=== PATIENT | female | born 1965 | race Caucasian/White ===

== ENCOUNTER 2016-11-29 16:01 | Emergency (ER) | payer OTHER ==
[2016-11-29 16:17] VITALS: BP 129/84
[2016-11-29] MEDS ORDERED: Sodium Chloride 0.9% 10 ML Syringe FLUSH PRN (16:55)
[2016-11-29] MEDS ORDERED: Ondansetron 4 MG/2 ML SDV IVPUSH ONE (16:55)
[2016-11-29] MEDS ORDERED: HYDROmorphone 0.5 MG/0.5 ML Syringe IVPUSH ONE ×2 (16:55→18:06)
[2016-11-29] MEDS ORDERED: Sodium Chloride 0.9% 1,000 ML IV ONE (16:55)
--- NOTE | 2016-11-29 17:00 | EDM.PDOC ---
ED HPI GENERAL MEDICAL PROBLEM - General Chief Complaint: Genitourinary Problem Stated Complaint: BACK PAIN Time Seen by Provider: 11/29/16 16:45 Source of Information: Reports: Patient History Limitations: Reports: No Limitations - History of Present Illness INITIAL COMMENTS - FREE TEXT/NARRATIVE: Patient is a 51-year-old female who to the presents ED complaining of a achy sensation to the left flank that started earlier this morning. Patient was at work when this started. 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 There is no heavy lifting. Pain has progressively gotten worse. Pain has been moving. Pain is constant with waxing waning in intensity. She has not urinated today although shes been drinking plenty of water. She is mildly nauseated with no vomiting. There's been no documented fever although at times she feels clammy. She denies any diarrhea, constipation, SOB, chest pain, dizziness, abnormal vaginal discharge, dysuria, or any additional complaints. She has no prior history of similar symptoms. She denies hx of kidney stones. Treatments MANAGER RESEARCH: Reports: Other (see below) Other Treatments MANAGER RESEARCH: ibuprofen 800 mg at 1100 Left Flank Pain Score (Numeric/FACES): 8 - Related Data Allergies Allergy/AdvReac Type Severity Reaction Status Date / Time No Known Allergies Allergy Verified 11/29/16 16:11 Home Meds: Home Meds Lasix. 11/29/16 [History] Losartan. 11/29/16 [History] Nitrofurantoin Monohyd/M-Cryst [Macrobid 100 mg Capsule] 100 mg PO BID #10 capsule 11/29/16 [Rx] Potassium. 11/29/16 [History] Prozac. 11/29/16 [History] Simvastatin. 11/29/16 [History] metFORMIN [Glucophage] 500 mg PO BIDMEALS 11/29/16 [History] Past Medical History Psychiatric History: Reports: Depression Endocrine/Metabolic History: Reports: Diabetes, Type I Social & Family History - Tobacco Use Smoking Status *Q: Never Smoker - Recreational Drug Use Recreational Drug Use: No ED ROS GENERAL - Review of Systems Review Of Systems: ROS reveals no pertinent complaints other than HPI. ED EXAM, GI/ABD - Physical Exam Exam: See Below Exam Limited By: No Limitations General Appearance: Alert, WD/WN, Mild Distress Ears: Hearing Grossly Normal Nose: Normal Inspection Throat/Mouth: Normal Voice, No Airway Compromise Neck: Normal Inspection, Supple Respiratory/Chest: No Respiratory Distress, Lungs Clear, Normal Breath Sounds, No Accessory Muscle Use Cardiovascular: Normal Peripheral Pulses, Regular Rate, Rhythm GI/Abdominal Exam: Normal Bowel Sounds, Soft, Non-Tender, No Organomegaly, No Distention Back Exam: Normal Inspection, Full Range of Motion, Other (left flank pain with palpation. ). No: CVA Tenderness (L), CVA Tenderness (R), Muscle Spasm, Paraspinal Tenderness, Vertebral Tenderness Extremities: Normal Inspection, Non-Tender, No Pedal Edema, Normal Capillary Refill Neurological: Alert, Oriented, Normal Cognition, No Motor/Sensory Deficits Psychiatric: Normal Affect, Normal Mood Skin Exam: Warm, Dry, Intact, Normal Color Course - Vital Signs Last Recorded V/S: Last Vital Signs Temp 98.0 F 11/29/16 16:13 Pulse 96 11/29/16 16:13 Resp BP 129/84 11/29/16 16:13 Pulse Ox 97 11/29/16 16:13 - Orders/Labs/Meds Orders: Active Orders 24 hr Category Date Time Status Peripheral IV Care [RC] . DIRECTED Care 11/29/16 16:55 Active Abdomen Pelvis wo Cont [CT] Stat Exams 11/29/16 16:55 Taken CULTURE URINE [RM] Stat Lab 11/29/16 19:22 Ordered Sodium Chloride 0.9% [Normal Saline] 1,000 ml Med 11/29/16 16:55 Active IV ONETIME Sodium Chloride 0.9% [Saline Flush] Med 11/29/16 16:55 Active 10 ml FLUSH ASDIRECTED PRN Peripheral IV Insertion Adult [OM.PC] Stat Oth 11/29/16 16:55 Ordered Medication Orders Sodium Chloride (Normal Saline) 1,000 mls @ 250 mls/hr IV ONETIME ONE Stop: 11/29/16 20:54 Last Admin: 11/29/16 17:26 Dose: 250 mls/hr Sodium Chloride (Saline Flush) 10 ml FLUSH ASDIRECTED PRN PRN Reason: Keep Vein Open Last Admin: 11/29/16 17:34 Dose: 10 ml Labs: Laboratory Tests 11/29/16 11/29/16 11/29/16 Range/Units 17:20 17:20 18:35 WBC 10.71 H (3.98-10.04) K/mm3 RBC 4.27 (3.98-5.22) M/mm3 Hgb 12.9 (11.2-15.7) gm/L Hct 39.0 (34.1-44.9) % MCV 91.3 (79.4-94.8) fl MCH 30.2 (25.6-32.2) pg MCHC 33.1 (32.2-35.5) g/dl RDW Std Deviation 43.7 (36.4-46.3) fL Plt Count 333 (182-369) K/mm3 MPV 8.9 L (9.4-12.3) fl Neut % (Auto) 59.8 (34.0-71.1) % Lymph % (Auto) 28.2 (19.3-51.7) % [place] % (Auto) 8.2 (4.7-12.5) % Eos % (Auto) 2.9 (0.7-5.8) Baso % (Auto) 0.5 (0.1-1.2) % Neut # (Auto) 6.41 H (1.56-6.13) K/mm3 Lymph # (Auto) 3.02 (1.18-3.74) K/mm3 [place] # (Auto) 0.88 H (0.24-0.36) K/mm3 Eos # (Auto) 0.31 (0.04-0.36) K/mm3 Baso # (Auto) 0.05 (0.01-0.08) K/mm3 Sodium 139 (136-145) mEq/L Potassium 4.0 (3.5-5.1) mEq/L Chloride 104 (98-107) mEq/L Carbon Dioxide 29 (21-32) mEq/L Anion Gap 10.0 (5-15) BUN 18 (7-18) mg/dL Creatinine 0.9 (0.55-1.02) mg/dL Est Cr Clr Drug Dosing 64.58 mL/min Estimated GFR (MDRD) > 60 (>60) mL/min BUN/Creatinine Ratio 20.0 H (14-18) Glucose 103 (74-106) mg/dL Calcium 9.1 (8.5-10.1) mg/dL Total Bilirubin 0.2 (0.2-1.0) mg/dL AST 35 (15-37) U/L ALT 27 (14-59) U/L Alkaline Phosphatase 127 H (46-116) U/L C-Reactive Protein < 0.2 (<1.0) mg/dL Total Protein 7.7 (6.4-8.2) g/dl Albumin 3.8 (3.4-5.0) g/dl Globulin 3.9 gm/dL Albumin/Globulin Ratio 1.0 (1-2) Urine Color Yellow (Yellow) Urine Appearance Clear (Clear) Urine pH 5.5 (5.0-8.0) Ur Specific [place] 1.025 (1.005-1.030) Urine Protein Trace H (Negative) Urine Glucose (UA) Negative (Negative) Urine Ketones 2+ H (Negative) Urine Occult Blood Negative (Negative) Urine Nitrite Negative (Negative) Urine Bilirubin Negative (Negative) Urine Urobilinogen 0.2 (0.2-1.0) Ur Leukocyte Esterase 1+ H (Negative) Urine RBC 0-5 (0-5) /hpf Urine WBC 5-10 H (0-5) /hpf Ur Epithelial Cells 0-5 (0-5) /hpf Urine Bacteria Many H (FEW) /hpf Urine Mucus Moderate H (FEW) /hpf Meds: Medications Generic Name Dose Route Start Last Admin Trade Name Freq PRN Reason Stop Dose Admin Sodium Chloride 1,000 mls @ 250 mls/hr 11/29/16 16:55 11/29/16 17:26 Normal Saline IV 11/29/16 20:54 250 mls/hr ONETIME ONE Administration Sodium Chloride 10 ml 11/29/16 16:55 11/29/16 17:34 Saline Flush FLUSH 10 ml ASDIRECTED PRN Administration Keep Vein Open Discontinued Medications Generic Name Dose Route Start Last Admin Trade Name Freq PRN Reason Stop Dose Admin Hydromorphone HCl 0.5 mg 11/29/16 16:55 11/29/16 17:31 Dilaudid IVPUSH 11/29/16 16:56 0.5 mg ONETIME ONE Administration Hydromorphone HCl 0.25 mg 11/29/16 18:06 11/29/16 18:22 Dilaudid IVPUSH 11/29/16 18:07 0.25 mg ONETIME ONE Administration Ketorolac Tromethamine 30 mg 11/29/16 18:06 11/29/16 18:20 Toradol IVPUSH 11/29/16 18:07 30 mg ONETIME ONE Administration Nitrofurantoin Macrocrystals 100 mg 11/29/16 19:18 11/29/16 19:30 Macrobid PO 11/29/16 19:19 100 mg ONETIME ONE Administration Ondansetron HCl 4 mg 11/29/16 16:55 11/29/16 17:27 Zofran IVPUSH 11/29/16 16:56 4 mg ONETIME ONE Administration - Re-Assessments/Exams Free Text/Narrative Re-Assessment/Exam: Peripheral IV established with normal saline 250 mils per hour, Zofran 4 mg IVP , toradol 30mg IVP, and Dilaudid 0.5 mg IVP. Initial labs and studies include CBC, chem 14, CRP, UA, and CT of the abdomen and pelvis with out contrast renal stone protocol. 11/29/16 18:07 White blood cell count 10.71, hemoglobin is 12.9, platelet count 333, sodium 139, potassium 4.0, cr 0.9, glucose 103, liver enzymes within normal limits, alk phosphatase 127, and CRP less than 0.2. No UA results yet. Patient unable to urinate. 1807 CT of the abdomen and pelvis has not been obtained yet. 1808 Per nursing staff patient is continuing to have pain. Ordered dilaudid 0.25 mg IVP and toradol 30mg IVP. 11/29/16 19:19 Reassessment, patient is pain free. UA revealed findings concerning for infection. Urine culture ordered. Ordered macrobid 100mg po. She is ready to be discharged home. Instructions as documented. Departure - Departure Time of Disposition: 19:20 Disposition: Home, Self-Care 01 Condition: Good Clinical Impression: UTI, Urinary tract infectious disease, Flank pain - Discharge Information Prescriptions: Nitrofurantoin Monohyd/M-Cryst [Macrobid 100 mg Capsule] 100 mg PO BID #10 capsule Instructions: Urinary Tract Infection, Adult, [id number] Referrals: PCP,None [Primary Care Provider] - Forms: ED Department Discharge Additional Instructions: CT the abdomen did not reveal any findings concerning for kidney stone. UA results indicated you have a urinary tract infection. Urine culture has been obtained. If antibiotic changes are required to be notified. Will have you take Macrobid 100 mg twice a day for 5 days. Utilize Tylenol and ibuprofen in alternating fashion for pain. Follow-up with her PCP this coming Sunday to ensure resolution. Return to ED for any new or worsening symptoms. No driving this evening since receiving a sedative medication while in the ED. Patient did receive a narcotic medication dilaudid while in the ED for pain. This will show up on patient's drug testing. Patient was not sent home on any narcotics. - My Orders Last 24 Hours: My Active Orders 11/29/16 16:55 Peripheral IV Care [RC] . DIRECTED Abdomen Pelvis wo Cont [CT] Stat Sodium Chloride 0.9% [Normal Saline] 1,000 ml IV ONETIME Sodium Chloride 0.9% [Saline Flush] 10 ml FLUSH ASDIRECTED PRN Peripheral IV Insertion Adult [OM.PC] Stat 11/29/16 19:22 CULTURE URINE [RM] Stat - Assessment/Plan Last 24 Hours: My Active Orders 11/29/16 16:55 Peripheral IV Care [RC] . DIRECTED Abdomen Pelvis wo Cont [CT] Stat Sodium Chloride 0.9% [Normal Saline] 1,000 ml IV ONETIME Sodium Chloride 0.9% [Saline Flush] 10 ml FLUSH ASDIRECTED PRN Peripheral IV Insertion Adult [OM.PC] Stat 11/29/16 19:22 CULTURE URINE [RM] Stat
[2016-11-29] MEDS ORDERED: Ketorolac 30 MG/ML SDV IVPUSH ONE (18:06)
[2016-11-29] MEDS ORDERED: Nitrofurantoin Monohydrate/Macrocrystalline 100 MG Cap PO ONE (19:18)
--- NOTE | 2016-11-30 12:17 | CT ---
CT abdomen and pelvis Technique: Multiple axial sections were obtained from above the kidneys inferiorly through the pubic symphysis. Intravenous and oral contrast was not utilized. Study was performed as a ureteral stone protocol. Findings: Kidneys show no abnormal calcifications. No ureteral dilatation or ureteral stone is seen. Visualized lung bases are clear. Liver shows fatty infiltration. Spleen appears within normal limits. Adrenal glands show no nodule. Pancreas appears within normal limits. Aorta shows no aneurysmal dilatation. No retroperitoneal adenopathy or mesenteric abnormalities are seen. Appendix is seen and appears normal. No bowel dilatation is seen. No pelvic mass or adenopathy is seen. No inflammatory change or free fluid is seen. Bone window settings were reviewed which show mild degenerative change primarily within the apophyseal joints at L4-L5. Impression: 1. Incidental degenerative change within the spine. 2. No renal calculi, ureteral dilatation or ureteral stone is seen. 3. Nothing acute is appreciated on noncontrast CT study of the abdomen and pelvis performed as a ureteral stone protocol. 4. Fatty infiltration within the liver. Diagnostic code #2 Agree with preliminary report issued by [facility] ([facility] preliminary report dictated on 11/29/16, 7:27 PM Central Time)
== END 2016-11-29 19:30 | disposition home or self-care (01) ==
LOC: JD.ED 16:01
DX: N39.0 Urinary tract infection, site not specified (principal); E10.9 Type 1 diabetes mellitus without complications; F32.9 Major depressive disorder, single episode, unspecified; Z79.84 Long term (current) use of oral hypoglycemic drugs
CPT/HCPCS: 36415; 74176; 80053; 81001; 85025; 86140; 87086; 96361; 96374; 96375; 96376; 99284; A9270; J1170; J1885; J2405; J7040; J7050

== ENCOUNTER 2016-12-26 16:58 | Emergency (ER) | payer MEDICAID, OTHER ==
[2016-12-26 17:07] VITALS: BP 164/83
[2016-12-26] MEDS ORDERED: Sodium Chloride 0.9% 10 ML Syringe FLUSH PRN (17:29)
[2016-12-26] MEDS ORDERED: Ketorolac 30 MG/ML SDV IVPUSH ONE (17:29)
[2016-12-26] MEDS ORDERED: Ketorolac 30 MG/ML SDV IM ONE (17:30)
--- NOTE | 2016-12-26 17:46 | EDM.PDOC ---
ED HPI GENERAL MEDICAL PROBLEM - General Chief Complaint: Respiratory Problem Stated Complaint: CHEST PAIN AND CONGESTION FROM A COLD Time Seen by Provider: 12/26/16 17:21 Source of Information: Reports: Patient, Old Records (recent clinic visit ) History Limitations: Reports: No Limitations - History of Present Illness INITIAL COMMENTS - FREE TEXT/NARRATIVE: 51-year-old female presents for evaluation and treatment of cold symptoms. Patient reports that the symptoms have been going on for the last few weeks. She was seen by her primary care provider several weeks ago and was instructed to utilize [id number] medications as this was likely viral. She is currently complaining of a dry nonproductive cough, heartburn, nasal congestion , runny nose, ear pain and chest heaviness and tightness. She also reports shortness of breath. Denies any nausea or vomiting. Patient reports that she does have quite severe allergies. Patient reports that she does get diaphoretic at times and states she is also going through menopause. Patient presented to the walk-in clinic initially. Due to her concerns of chest pain and tightness she was sent over to us for further management and care. Patient does have concerns as her mother from CHF and she has family history of heart problems. She is a diabetic and has hypertension and hypercholesterolemia. Onset: Gradual Duration: Week(s): ("several") Middle Chest Pain Score (Numeric/FACES): 5 - Related Data Allergies Allergy/AdvReac Type Severity Reaction Status Date / Time No Known Allergies Allergy Verified 12/26/16 17:06 Home Meds: Home Meds Aspirin [Low Dose Aspirin EC] 81 mg PO DAILY 12/26/16 [History] Azithromycin [IJD: Azithromycin] 250 mg PO DAILY #6 tab 12/26/16 [Rx] FLUoxetine HCl [Fluoxetine HCl] 60 mg PO DAILY 12/26/16 [History] Fexofenadine [Magali] 60 mg PO DAILY 12/26/16 [History] Losartan [Cozaar] 50 mg PO DAILY 12/26/16 [History] Simvastatin [Zocor] 40 mg PO BEDTIME 12/26/16 [History] metFORMIN [Glucophage XR] 500 mg PO BIDMEALS 12/26/16 [History] Past Medical History Cardiovascular History: Reports: High Cholesterol, Hypertension Gastrointestinal History: Reports: GERD Endocrine/Metabolic History: Reports: Diabetes, Type II Social & Family History - Tobacco Use Smoking Status *Q: Never Smoker - Caffeine Use Caffeine Use: Reports: Coffee, Soda - Recreational Drug Use Recreational Drug Use: No ED ROS GENERAL - Review of Systems Review Of Systems: See Below Constitutional: Reports: Fever (at first, non recently) HEENT: Reports: Ear Pain, Throat Pain, Other (nasal congestion) Respiratory: Reports: Shortness of Breath, Cough. Denies: Sputum Cardiovascular: Reports: Chest Pain. Denies: Edema GI/Abdominal: Reports: Other (reports heartburn). Denies: Abdominal Pain, Nausea, Vomiting Skin: Denies: Rash Neurological: Reports: Headache ED EXAM, GENERAL - Physical Exam Exam: See Below Exam Limited By: No Limitations General Appearance: Alert, WD/WN, No Apparent Distress Ears: Normal External Exam, Normal Canal, Hearing Grossly Normal, Normal TMs Nose: Normal Inspection Throat/Mouth: Normal Inspection, Normal Lips, Normal Teeth, Normal Gums, Normal Oropharynx, Normal Voice, No Airway Compromise Neck: Normal Inspection, Supple. No: Lymphadenopathy (L), Lymphadenopathy (R) Respiratory/Chest: No Respiratory Distress, Lungs Clear, Normal Breath Sounds Cardiovascular: Normal Peripheral Pulses, Regular Rate, Rhythm, No Murmur Peripheral Pulses: 2+: Radial (L), Radial (R), Dorsalis Pedis (L), Dorsalis Pedis (R) Extremities: Normal Inspection, No Pedal Edema, Normal Capillary Refill Neurological: Alert, Oriented, Normal Cognition Psychiatric: Normal Affect, Normal Mood Skin Exam: Warm, Dry, Normal Color EKG INTERPRETATION EKG Date: 12/26/16 Time: 17:35 Rhythm: NSR Rate (Beats/Min): 78 [place]: Normal P-Wave: Present QRS: Normal ST-T: Normal QT: Normal Comparison: NA - No Prior EKG EKG Interpretation Comments: NSR at 78 bpm. No acute changes. Course - Vital Signs Last Recorded V/S: Last Vital Signs Temp 36.0 C 12/26/16 17:03 Pulse 86 12/26/16 17:03 Resp 18 12/26/16 17:03 BP 164/83 H 12/26/16 17:03 Pulse Ox 96 12/26/16 17:03 - Orders/Labs/Meds Orders: Active Orders 24 hr Category Date Time Status Cardiac Monitoring [RC] . DIRECTED Care 12/26/16 17:29 Active EKG 12 Lead [EKG Documentation Completion] [RC] STAT Care 12/26/16 17:28 Active Peripheral IV Care [RC] . DIRECTED Care 12/26/16 17:29 Inactive Chest 2V [CR] Stat Exams 12/26/16 17:29 Taken Peripheral IV Insertion Adult [OM.PC] Routine Oth 12/26/16 17:28 Ordered Labs: Laboratory Tests 12/26/16 12/26/16 Range/Units 17:44 17:44 WBC 10.55 H (3.98-10.04) K/mm3 RBC 3.87 L (3.98-5.22) M/mm3 Hgb 11.7 (11.2-15.7) gm/L Hct 35.9 (34.1-44.9) % MCV 92.8 (79.4-94.8) fl MCH 30.2 (25.6-32.2) pg MCHC 32.6 (32.2-35.5) g/dl RDW Std Deviation 43.8 (36.4-46.3) fL Plt Count 311 (182-369) K/mm3 MPV 8.9 L (9.4-12.3) fl Neut % (Auto) 59.6 (34.0-71.1) % Lymph % (Auto) 29.7 (19.3-51.7) % [place] % (Auto) 7.1 (4.7-12.5) % Eos % (Auto) 3.2 (0.7-5.8) Baso % (Auto) 0.3 (0.1-1.2) % Neut # (Auto) 6.29 H (1.56-6.13) K/mm3 Lymph # (Auto) 3.13 (1.18-3.74) K/mm3 [place] # (Auto) 0.75 H (0.24-0.36) K/mm3 Eos # (Auto) 0.34 (0.04-0.36) K/mm3 Baso # (Auto) 0.03 (0.01-0.08) K/mm3 Sodium 140 (136-145) mEq/L Potassium 3.8 (3.5-5.1) mEq/L Chloride 105 (98-107) mEq/L Carbon Dioxide 27 (21-32) mEq/L Anion Gap 11.8 (5-15) BUN 9 (7-18) mg/dL Creatinine 0.8 (0.55-1.02) mg/dL Est Cr Clr Drug Dosing 72.65 mL/min Estimated GFR (MDRD) > 60 (>60) mL/min BUN/Creatinine Ratio 11.3 L (14-18) Glucose 116 H (74-106) mg/dL Calcium 8.9 (8.5-10.1) mg/dL Total Bilirubin 0.2 (0.2-1.0) mg/dL AST 15 (15-37) U/L ALT 16 (14-59) U/L Alkaline Phosphatase 143 H (46-116) U/L Troponin I < 0.017 (0.00-0.056) ng/mL NT-Pro-B Natriuret Pep 121 (0-125) pg/mL Total Protein 6.8 (6.4-8.2) g/dl Albumin 3.2 L (3.4-5.0) g/dl Globulin 3.6 gm/dL Albumin/Globulin Ratio 0.9 L (1-2) Meds: Medications Discontinued Medications Generic Name Dose Route Start Last Admin Trade Name Freq PRN Reason Stop Dose Admin Ketorolac Tromethamine 30 mg 12/26/16 17:29 Toradol IVPUSH 12/26/16 17:30 ONETIME ONE Ketorolac Tromethamine 30 mg 12/26/16 17:30 12/26/16 17:39 Toradol IM 12/26/16 17:31 30 mg ONETIME ONE Administration Sodium Chloride 10 ml 12/26/16 17:29 Saline Flush FLUSH ASDIRECTED PRN Keep Vein Open - Radiology Interpretation Free Text/Narrative:: chest 2 view shows a questionable of pneumonia, could also be a nodule. Formal radiology report pending. - Re-Assessments/Exams Free Text/Narrative Re-Assessment/Exam: 12/26/16 19:17 I reviewed the labs, EKG and chest x-ray results with the patient. Given her slightly elevated white blood cell count and questionable area on her chest x- ray I will treat her with a Z-Riley. I will have her follow-up in 10 days if not much better. Note given for work. Discharge instructions as documented. Departure - Departure Time of Disposition: 19:17 Disposition: Home, Self-Care 01 Condition: Fair Clinical Impression: Pneumonia - Discharge Information Prescriptions: Azithromycin [IJD: Azithromycin] 250 mg PO DAILY #6 tab Instructions: Community-Acquired Pneumonia, Adult Referrals: Donna De Leon NP [Primary Care Provider] - Forms: ED Department Discharge, ED Return to Work/School Form Additional Instructions: Take the azithromycin as prescribed. 2 tabs day 1 followed by 1 tab daily 2 through 5. This medication does stay in your system for 10 days; if not much better after the course given a few more days. Follow-up with your primary care provider symptoms if not much better within 10 days. Rest and drink plenty of fluids. note given for work. Please return to the ER if your Symptoms change or worsen. - My Orders Last 24 Hours: My Active Orders 12/26/16 17:28 EKG 12 Lead [EKG Documentation Completion] [RC] STAT Peripheral IV Insertion Adult [OM.PC] Routine 12/26/16 17:29 Cardiac Monitoring [RC] . DIRECTED Peripheral IV Care [RC] . DIRECTED Chest 2V [CR] Stat - Assessment/Plan Last 24 Hours: My Active Orders 12/26/16 17:28 EKG 12 Lead [EKG Documentation Completion] [RC] STAT Peripheral IV Insertion Adult [OM.PC] Routine 12/26/16 17:29 Cardiac Monitoring [RC] . DIRECTED Peripheral IV Care [RC] . DIRECTED Chest 2V [CR] Stat
--- NOTE | 2016-12-27 08:02 | CR ---
Chest: Two views of the chest were obtained. Comparison: No previous chest x-ray. Heart size and mediastinum are within normal limits. Lungs are clear. Bony structures are unremarkable. Impression: 1. Nothing acute is appreciated on two-view chest x-ray. Diagnostic code #1
== END 2016-12-26 19:40 | disposition home or self-care (01) ==
LOC: MERGE 16:58 → JD.ED 16:58
DX: J18.9 Pneumonia, unspecified organism (principal); I10 Essential (primary) hypertension; E78.00 Pure hypercholesterolemia, unspecified; K21.9 Gastro-esophageal reflux disease without esophagitis; E11.9 Type 2 diabetes mellitus without complications; Z79.84 Long term (current) use of oral hypoglycemic drugs; Z79.82 Long term (current) use of aspirin; Z79.2 Long term (current) use of antibiotics; Z79.899 Other long term (current) drug therapy
CPT/HCPCS: 36415; 71020; 80053; 83880; 84484; 85025; 93005; 96372; 99285; J1885; 99284

== ENCOUNTER 2017-10-02 17:39 | Emergency (ER) | payer MEDICAID ==
[2017-10-02] MEDS ORDERED: Sodium Chloride 0.9% 10 ML Syringe FLUSH PRN (18:15)
--- NOTE | 2017-10-02 18:19 | EDM.PDOC ---
ED HPI GENERAL MEDICAL PROBLEM - General Chief Complaint: EGG BREAKER Problem Stated Complaint: POST MENAPAUSAL BLEEDING Time Seen by Provider: 10/02/17 17:52 Source of Information: Reports: Patient History Limitations: Reports: No Limitations - History of Present Illness INITIAL COMMENTS - FREE TEXT/NARRATIVE: Patient is a 52-year-old female presents ED complaining of lower abdnominal cramping and vaginal bleeding. Patient states she noticed some small blood clots with urinating with minimal blood on pad. Patient states the cramping to her lower abdomen has progressively got worse throughout the course the day. She 's had a three-day history of diarrhea with no blood present. No ingestion about her questional food, no recent out of country travel, no recent sick exposures. States she took a nap earlier this afternoon and upon awakening had significant increase in vaginal bleeding. Complaining has subsided with admission to the ED. She only has a small few blood clots with urinating. states 3 years ago started menopause and has not had any vaginal bleeding for the past year and a half up until now. She reports night sweats, fever, chills, recent weight loss of 20 pounds without trying, fatigue, lack of appetite, and feeling depressed. she currently denies any fever, chest pain, shortness of breath, dysuria, cough, or any additional complaints. Pelvic Pain Score (Numeric/FACES): 8 - Related Data Allergies Allergy/AdvReac Type Severity Reaction Status Date / Time No Known Allergies Allergy Verified 10/02/17 17:53 Home Meds: Home Meds FLUoxetine HCl [Fluoxetine HCl] 40 mg PO DAILY 12/26/16 [History] Simvastatin [Zocor] 40 mg PO BEDTIME 12/26/16 [History] metFORMIN [Glucophage XR] 500 mg PO BIDMEALS 12/26/16 [History] Biotin 3 mg PO DAILY 10/02/17 [History] Gabapentin [Neurontin] 600 mg PO TID 10/02/17 [History] LORazepam [Ativan] 1 mg PO BID 10/02/17 [History] Loratadine/Pseudoephedrine [Claritin-D 12 Hour] 1 tab PO Q12HR 10/02/17 [History ] Mometasone Furoate [Nasonex [place]] 2 spray STIVEN BID 10/02/17 [History] Multivitamins [Tab-A-Sita] 1 each PO DAILY 10/02/17 [History] Pantoprazole [ProTONIX] 40 mg PO DAILY 10/02/17 [History] Umeclidinium Brm/Vilanterol Tr [Anoro Ellipta 62.5-25 MCG] 1 inh INH DAILY 10/02 [History] amLODIPine [Norvasc] 10 mg PO DAILY 10/02/17 [History] tiZANidine [Zanaflex] 4 mg PO QID 10/02/17 [History] traMADol [Ultram] 50 mg PO QID 10/02/17 [History] Past Medical History Cardiovascular History: Reports: High Cholesterol, Hypertension Gastrointestinal History: Reports: GERD Psychiatric History: Reports: Depression Endocrine/Metabolic History: Reports: Diabetes, Type I, Diabetes, Type II Social & Family History - Caffeine Use Caffeine Use: Reports: Coffee, Soda ED ROS GENERAL - Review of Systems Review Of Systems: See Below Constitutional: Reports: Malaise, Fatigue, Night Sweats, Weight Loss HEENT: Reports: No Symptoms Respiratory: Reports: No Symptoms Cardiovascular: Reports: No Symptoms GI/Abdominal: Reports: Abdominal Pain (cramping generalized), Diarrhea, Decreased Appetite. Denies: Black Stool, Bloody Stool, Difficulty Swallowing, Distension, Flatus, Hematemesis, Hematochezia, Melena, Nausea, Vomiting : Reports: Pain, Other (vaginal bleeding). Denies: Dysuria, Frequency, Hematuria, Urgency, Urinary Retention Musculoskeletal: Reports: No Symptoms Neurological: Reports: No Symptoms Psychiatric: Reports: Anxiety, Depression. Denies: Hallucinations, Homicidal Ideation, Suicidal Ideation ED EXAM, RENAL/ - Physical Exam Exam: See Below Exam Limited By: No Limitations General Appearance: Alert, WD/WN, Anxious Ears: Hearing Grossly Normal Nose: Normal Inspection Throat/Mouth: Normal Voice, No Airway Compromise Head: Atraumatic, Normocephalic Neck: Normal Inspection, Supple Respiratory/Chest: No Respiratory Distress, Lungs Clear, Normal Breath Sounds, No Accessory Muscle Use, Chest Non-Tender Cardiovascular: Normal Peripheral Pulses, Regular Rate, Rhythm, No Murmur GI/Abdominal: Normal Bowel Sounds, Soft, Non-Tender, No Organomegaly, No Distention Back Exam: Normal Inspection. No: CVA Tenderness (L), CVA Tenderness (R) Extremities: Normal Inspection, Non-Tender, No Pedal Edema Neurological: Alert, Oriented, CN II-XII Intact, Normal Cognition, No Motor/ Sensory Deficits Psychiatric: Normal Affect, Normal Mood Skin Exam: Warm, Dry, Intact, Normal Color, No Rash Course - Vital Signs Last Recorded V/S: Last Vital Signs Temp 98.2 F 10/02/17 20:40 Pulse 79 10/02/17 20:40 Resp 18 10/02/17 20:40 BP 138/74 10/02/17 20:40 Pulse Ox 97 10/02/17 20:40 - Orders/Labs/Meds Orders: Active Orders 24 hr Category Date Time Status Peripheral IV Care [RC] . DIRECTED Care 10/02/17 18:16 Active DRUG SCREEN, URINE [URCHEM] Stat Lab 10/02/17 19:00 Ordered Peripheral IV Insertion Adult [OM.PC] Routine Oth 10/02/17 18:15 Ordered Labs: Laboratory Tests 10/02/17 10/02/17 10/02/17 Range/Units 18:23 18:23 18:23 WBC 9.50 (3.98-10.04) K/mm3 RBC 4.65 (3.98-5.22) M/mm3 Hgb 14.2 (11.2-15.7) gm/L Hct 42.3 (34.1-44.9) % MCV 91.0 (79.4-94.8) fl MCH 30.5 (25.6-32.2) pg MCHC 33.6 (32.2-35.5) g/dl RDW Std Deviation 43.2 (36.4-46.3) fL Plt Count 372 H (182-369) K/mm3 MPV 8.6 L (9.4-12.3) fl Neutrophils % (Manual) 75 H (40-60) % Band Neutrophils % 0 (0-10) % Lymphocytes % (Manual) 14 L (20-40) % Atypical Lymphs % 0 % Monocytes % (Manual) 3 (2-10) % Eosinophils % (Manual) 8 H (0.7-5.8) % Basophils % (Manual) 0 L (0.1-1.2) Platelet Estimate Adequate Plt Morphology Comment Normal RBC Morph Comment Normal PT (9.5-12.1) SECONDS INR APTT (24-31) SECONDS Sodium 139 (136-145) mEq/L Potassium 3.7 (3.5-5.1) mEq/L Chloride 103 (98-107) mEq/L Carbon Dioxide 25 (21-32) mEq/L Anion Gap 14.7 (5-15) BUN 11 (7-18) mg/dL Creatinine 0.8 (0.55-1.02) mg/dL Est Cr Clr Drug Dosing 62.78 mL/min Estimated GFR (MDRD) > 60 (>60) mL/min BUN/Creatinine Ratio 13.8 L (14-18) Glucose 141 H (74-106) mg/dL Calcium 9.6 (8.5-10.1) mg/dL Total Bilirubin 0.2 (0.2-1.0) mg/dL AST 19 (15-37) U/L ALT 22 (14-59) U/L Alkaline Phosphatase 170 H (46-116) U/L C-Reactive Protein 1.2 H* (<1.0) mg/dL Total Protein 8.3 H (6.4-8.2) g/dl Albumin 3.8 (3.4-5.0) g/dl Globulin 4.5 gm/dL Albumin/Globulin Ratio 0.8 L (1-2) TSH 3rd Generation 2.335 (0.358-3.74) uIU/mL Urine Color (Yellow) Urine Appearance (Clear) Urine pH (5.0-8.0) Ur Specific Hailey (1.005-1.030) Urine Protein (Negative) Urine Glucose (UA) (Negative) Urine Ketones (Negative) Urine Occult Blood (Negative) Urine Nitrite (Negative) Urine Bilirubin (Negative) Urine Urobilinogen (0.2-1.0) Ur Leukocyte Esterase (Negative) Urine RBC (0-5) /hpf Urine WBC (0-5) /hpf Ur Epithelial Cells (0-5) /hpf Urine Bacteria (FEW) /hpf Urine Mucus (FEW) /hpf Urine Opiates Screen (NEGATIVE) Ur Buprenorphine Scrn (NEGATIVE) Ur Oxycodone Screen (NEGATIVE) Urine Methadone Screen (NEGATIVE) Ur Propoxyphene Screen (NEGATIVE) Ur Barbiturates Screen (NEGATIVE) Ur Tricyclics Screen (NEGATIVE) Ur Phencyclidine Scrn (NEGATIVE) Ur Amphetamine Screen (NEGATIVE) U Methamphetamines Scrn (NEGATIVE) U Benzodiazepines Scrn (NEGATIVE) U Cocaine Metab Screen (NEGATIVE) U Marijuana (THC) Screen (NEGATIVE) Blood Type O POSITIVE Gel Antibody Screen Negative 10/02/17 10/02/17 10/02/17 Range/Units 18:23 19:00 19:00 WBC (3.98-10.04) K/mm3 RBC (3.98-5.22) M/mm3 Hgb (11.2-15.7) gm/L Hct (34.1-44.9) % MCV (79.4-94.8) fl MCH (25.6-32.2) pg MCHC (32.2-35.5) g/dl RDW Std Deviation (36.4-46.3) fL Plt Count (182-369) K/mm3 MPV (9.4-12.3) fl Neutrophils % (Manual) (40-60) % Band Neutrophils % (0-10) % Lymphocytes % (Manual) (20-40) % Atypical Lymphs % % Monocytes % (Manual) (2-10) % Eosinophils % (Manual) (0.7-5.8) % Basophils % (Manual) (0.1-1.2) Platelet Estimate Plt Morphology Comment RBC Morph Comment PT 9.9 (9.5-12.1) SECONDS INR < 0.93 APTT 31 (24-31) SECONDS Sodium (136-145) mEq/L Potassium (3.5-5.1) mEq/L Chloride (98-107) mEq/L Carbon Dioxide (21-32) mEq/L Anion Gap (5-15) BUN (7-18) mg/dL Creatinine (0.55-1.02) mg/dL Est Cr Clr Drug Dosing mL/min Estimated GFR (MDRD) (>60) mL/min BUN/Creatinine Ratio (14-18) Glucose (74-106) mg/dL Calcium (8.5-10.1) mg/dL Total Bilirubin (0.2-1.0) mg/dL AST (15-37) U/L ALT (14-59) U/L Alkaline Phosphatase (46-116) U/L C-Reactive Protein (<1.0) mg/dL Total Protein (6.4-8.2) g/dl Albumin (3.4-5.0) g/dl Globulin gm/dL Albumin/Globulin Ratio (1-2) TSH 3rd Generation (0.358-3.74) uIU/mL Urine Color Yellow (Yellow) Urine Appearance Slt cloudy H (Clear) Urine pH 6.5 (5.0-8.0) Ur Specific Hailey > or = 1.030 (1.005-1.030) Urine Protein 1+ H (Negative) Urine Glucose (UA) Negative (Negative) Urine Ketones Negative (Negative) Urine Occult Blood 3+ H (Negative) Urine Nitrite Negative (Negative) Urine Bilirubin Negative (Negative) Urine Urobilinogen 0.2 (0.2-1.0) Ur Leukocyte Esterase Negative (Negative) Urine RBC 50-75 H (0-5) /hpf Urine WBC 0-5 (0-5) /hpf Ur Epithelial Cells 10-20 H (0-5) /hpf Urine Bacteria Moderate H (FEW) /hpf Urine Mucus Not seen (FEW) /hpf Urine Opiates Screen Negative (NEGATIVE) Ur Buprenorphine Scrn Negative (NEGATIVE) Ur Oxycodone Screen Negative (NEGATIVE) Urine Methadone Screen Negative (NEGATIVE) Ur Propoxyphene Screen Negative (NEGATIVE) Ur Barbiturates Screen Negative (NEGATIVE) Ur Tricyclics Screen Negative (NEGATIVE) Ur Phencyclidine Scrn Negative (NEGATIVE) Ur Amphetamine Screen Negative (NEGATIVE) U Methamphetamines Scrn Negative (NEGATIVE) U Benzodiazepines Scrn Negative (NEGATIVE) U Cocaine Metab Screen Negative (NEGATIVE) U Marijuana (THC) Screen Negative (NEGATIVE) Blood Type Gel Antibody Screen Meds: Medications Discontinued Medications Generic Name Dose Route Start Last Admin Trade Name Freq PRN Reason Stop Dose Admin Dicyclomine HCl 10 mg 10/02/17 18:50 10/02/17 18:56 Bentyl PO 10/02/17 18:51 10 mg ONETIME ONE Administration Hydromorphone HCl 0.5 mg 10/02/17 20:14 10/02/17 20:32 Dilaudid IVPUSH 10/02/17 20:15 0.5 mg ONETIME ONE Administration Sodium Chloride 10 ml 10/02/17 18:15 10/02/17 18:28 Saline Flush FLUSH 10 ml ASDIRECTED PRN Administration Keep Vein Open - Re-Assessments/Exams Free Text/Narrative Re-Assessment/Exam: IV established. Initial labs and studies will include CBC, chem 14, CRP, stool cultures, urine drug screen, type and screen, TSH, UA, stool WBCs, coag studies , 2 view abdomen, and non-OB pelvic ultrasound. 2 view abdomen impression: Nonspecific air in stool patterns. No acute findings. 185 Patient complaining of lower abdominal cramping order Bentyl 10 mg by mouth. Labs reviewed. Pelvic ultrasound: Multiple real-time images were obtained transvaginally. Comparison: Prior pelvic ultrasound study of 03/08/12. Uterus is anteverted. Endometrial thickness is 1.2-1.4 cm which is increased for a postmenopausal woman. Endocervical lining appears abnormal with small cystic areas and mucosal thickening. Follicles are seen within the ovaries. More dominant cyst or follicle seen within the right ovary measuring 2.7 cm. No free fluid is seen. Measurements: Uterus: Length 6.6 cm, AP height 4.3 cm, transverse width 4.7 cm Right ovary: 4.3 x 1.5 x 2.4 cm Left ovary: 2.4 x 1.4 x 1.8 cm Impression: 1. Thickened endometrium as noted above. This is abnormal for a postmenopausal woman. Abnormal appearing endocervical region as noted above. 2. Other findings which are felt to be incidental as described above. [address] 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 Suggested patient call and make an appt with any EGG BREAKER specialists to be worked up for endometrial ca. 2214 Discussed results of labs and Ultrasound with the patient. She does not have a EGG BREAKER specialists. She has had no further vaginal bleeding. Request medications for pain. Ordered dilaudid 0.5mg IVP. Discharge instructions as documented. Departure - Departure Time of Disposition: 20:18 Disposition: Home, Self-Care 01 Condition: Good Clinical Impression: Post-menopausal bleeding, Abdominal cramping, Endometrial thickening on ultrasound - Discharge Information Instructions: Postmenopausal Bleeding, Jfrq-or-Oxpo Referrals: Angus Cheney MD [Physician] - Víctor Graf MD [Physician] - Jorge Castelan MD [Physician] - Forms: ED Department Discharge Additional Instructions: Please call and make an appointment with one of the 3 EGG BREAKER specialist to be worked up for postmenopausal bleeding with thickened endometrium. Please return to the ED if you experience increased vaginal bleeding saturating more than one pad in 1 hour. Take the tramadol as prescribed for pain. Please return to the ED if you develop any new or worsening symptoms. - My Orders Last 24 Hours: My Active Orders 10/02/17 18:15 Peripheral IV Insertion Adult [OM.PC] Routine 10/02/17 18:16 Peripheral IV Care [RC] . DIRECTED 10/02/17 19:00 DRUG SCREEN, URINE [URCHEM] Stat - Assessment/Plan Last 24 Hours: My Active Orders 10/02/17 18:15 Peripheral IV Insertion Adult [OM.PC] Routine 10/02/17 18:16 Peripheral IV Care [RC] . DIRECTED 10/02/17 19:00 DRUG SCREEN, URINE [URCHEM] Stat
[2017-10-02] MEDS ORDERED: Dicyclomine 10 MG Cap PO ONE (18:50)
--- NOTE | 2017-10-02 19:48 | US ---
Pelvic ultrasound: Multiple real-time images were obtained transvaginally. Comparison: Prior pelvic ultrasound study of 03/08/12. Uterus is anteverted. Endometrial thickness is 1.2-1.4 cm which is increased for a postmenopausal woman. Endocervical lining appears abnormal with small cystic areas and mucosal thickening. Follicles are seen within the ovaries. More dominant cyst or follicle seen within the right ovary measuring 2.7 cm. No free fluid is seen. Measurements: Uterus: Length 6.6 cm, AP height 4.3 cm, transverse width 4.7 cm Right ovary: 4.3 x 1.5 x 2.4 cm Left ovary: 2.4 x 1.4 x 1.8 cm Impression: 1. Thickened endometrium as noted above. This is abnormal for a postmenopausal woman. Abnormal appearing endocervical region as noted above. 2. Other findings which are felt to be incidental as described above. Diagnostic code #9
[2017-10-02] MEDS ORDERED: HYDROmorphone 0.5 MG/0.5 ML SYRINGE IVPUSH ONE (20:14)
[2017-10-02 20:41] VITALS: BP 138/74
--- NOTE | 2017-10-03 08:29 | CR ---
Abdomen: Supine and upright views of the abdomen were obtained. Comparison: No prior abdominal x-ray, previous CT abdomen and pelvis exam of 11/29/16. Bowel gas pattern appears normal. Small calcifications are seen within the pelvis which are compatible with phleboliths. No free air is seen. Bony structures are within normal limits for the patient's age. No discrete soft tissue abnormality is seen. Impression: 1. Unremarkable two-view abdominal x-ray. Diagnostic code #2
== END 2017-10-02 20:48 | disposition home or self-care (01) ==
LOC: JD.ED 17:39
DX: N95.0 Postmenopausal bleeding (principal); R93.8 Abnormal findings on diagnostic imaging of other specified body structures; I10 Essential (primary) hypertension; K21.9 Gastro-esophageal reflux disease without esophagitis; E10.9 Type 1 diabetes mellitus without complications; E78.00 Pure hypercholesterolemia, unspecified; Z79.899 Other long term (current) drug therapy; Z79.84 Long term (current) use of oral hypoglycemic drugs
CPT/HCPCS: 36415; 74019; 76830; 80053; 80306; 81001; 84443; 85007; 85027; 85610; 85730; 86140; 86850; 86900; 86901; 96374; 99285; A9270; J1170; J7050; 99284

== ENCOUNTER 2017-10-09 07:33 | Day surgery (SDC) | payer MEDICAID ==
[~2017-10-09 07:33] MED LIST: Lactated Ringers 1,000 ML IV SCH; Lidocaine 1%/Sod Bicarbonate in NS 8.4% 1 ML Syringe IDERM PRN; Midazolam 1 MG/ML 2 ML SDV ONE; Propofol 200 MG/20 ML SDV ONE; Sodium Chloride 0.9% 10 ML Syringe FLUSH PRN; fentaNYL 100 MCG/2 ML SDV ONE
[2017-10-09] MEDS ORDERED: Lidocaine 1% 4 ML ONE (07:35)
[2017-10-09] MEDS ORDERED: Succinylcholine/Normal Saline 100 MG/5 ML Syringe ONE (07:36)
[2017-10-09] MEDS ORDERED: Rocuronium 50 MG/5 ML Vial ONE (07:36)
--- NOTE | 2017-10-09 08:10 | PCM.PREANE ---
Preanesthetic Assessment - Anesthesia/Transfusion/Family Hx Anesthesia History: Prior Anesthesia Without Reaction Family History of Anesthesia Reaction: No - Review of Systems General: Malaise, Night Sweats Pulmonary: Cough (Dry Cough/ Allergies) Cardiovascular: No Symptoms Gastrointestinal: Abdominal Pain, Other (Heartburn controlled.) Neurological: Other (Back pain/sciatica. Neuropathy in lower extremities, numbness/tingling. Improved with her current medications. ) Other: Reports: Depression, Anxiety - Physical Assessment NPO Status Date: 10/08/17 NPO Status Time: 21:30 Pulse: 61 O2 Sat by Pulse Oximetry: 96 Respiratory Rate: 16 Blood Pressure: 111/68 Temperature: 36.2 C Weight: 86 kg ASA Class: 3 Mental Status: Alert & Oriented x3 Airway Class: Mallampati = 2 Dentition: Reports: Missing Tooth/Teeth Thyro-Mental Finger Breadths: 2 Mouth Opening Finger Breadths: 3 ROM/Head Extension: Full Lungs: Clear to Auscultation, Normal Respiratory Effort, Other (Sleep Apnea much improved with her weight loss.) Cardiovascular: Regular Rate, Regular Rhythm - Allergies Allergies/Adverse Reactions: Allergies Allergy/AdvReac Type Severity Reaction Status Date / Time No Known Allergies Allergy Verified 10/02/17 17:53 - Acknowledgements Anesthesia Type Planned: MAC Pt an Appropriate Candidate for the Planned Anesthesia: Yes Alternatives and Risks of Anesthesia Discussed w Pt/Guardian: Yes Pt/Guardian Understands and Agrees with Anesthesia Plan: Yes PreAnesthesia Questionnaire Cardiovascular History: Reports: High Cholesterol, Hypertension Respiratory History: Reports: COPD, Sleep Apnea Gastrointestinal History: Reports: GERD 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: 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 Musculoskeletal History: Reports: Back Pain, Chronic Neurological History: Reports: Neuropathy, Diabetic Psychiatric History: Reports: Depression Endocrine/Metabolic History: Reports: Diabetes, Type I, Diabetes, Type II Dermatologic History: Reports: Other (See Below) Other Dermatologic History: lipoma - Past Surgical History Female Surgical History: Reports: Tubal Ligation - SUBSTANCE USE Smoking Status *Q: Former Smoker Tobacco Use Within Last Twelve Months: Cigarettes Recreational Drug Use History: No - HOME MEDS Home Medications: Home Meds FLUoxetine HCl [Fluoxetine HCl] 40 mg PO DAILY 12/26/16 [History] Simvastatin [Zocor] 40 mg PO BEDTIME 12/26/16 [History] metFORMIN [Glucophage XR] 1,000 mg PO DAILY 12/26/16 [History] Gabapentin [Neurontin] 600 mg PO TID 10/02/17 [History] LORazepam [Ativan] 1 mg PO ASDIRECTED PRN 10/02/17 [History] Loratadine/Pseudoephedrine [Claritin-D 12 Hour] 1 tab PO Q12HR 10/02/17 [History ] Mometasone Furoate [Nasonex [place]] 2 spray STIVEN BID 10/02/17 [History] Multivitamins [Tab-A-Sita] 1 each PO DAILY 10/02/17 [History] Pantoprazole [ProTONIX] 40 mg PO DAILY 10/02/17 [History] Umeclidinium Brm/Vilanterol Tr [Anoro Ellipta 62.5-25 MCG] 1 inh INH DAILY 10/02 [History] amLODIPine [Norvasc] 10 mg PO DAILY 10/02/17 [History] tiZANidine [Zanaflex] 4 mg PO QID 10/02/17 [History] traMADol [Ultram] 50 mg PO ASDIRECTED PRN 10/02/17 [History] Aspirin [Adult Low Dose Aspirin EC] 81 mg PO DAILY 10/08/17 [History] - CURRENT (IN HOUSE) MEDS Current Meds: Current Medications Lactated Ringer's (Ringers, Lactated) 1,000 mls @ 125 mls/hr IV ASDIRECTED AP Stop: 10/09/17 23:00 Lidocaine/Sodium Bicarbonate (Buffered Lidocaine 1% In Ns 8.4%) 0.25 ml IDERM ONETIME PRN PRN Reason: Prior to IV Start Stop: 10/09/17 18:00 Sodium Chloride (Saline Flush) 10 ml FLUSH ASDIRECTED PRN PRN Reason: Keep Vein Open Stop: 10/09/17 18:00 Discontinued Medications Fentanyl (Sublimaze) Confirm Administered Dose 100 mcg .ROUTE .STK-MED ONE Stop: 10/09/17 07:34 Lidocaine HCl (Xylocaine-Mpf 1%) Confirm Administered Dose 4 mls @ as directed .ROUTE .STK-MED ONE Stop: 10/09/17 07:36 Midazolam HCl (Versed 1 Mg/Ml) Confirm Administered Dose 2 mg .ROUTE .STK-MED ONE Stop: 10/09/17 07:34 Propofol (Diprivan 20 Ml) Confirm Administered Dose 200 mg .ROUTE .STK-MED ONE Stop: 10/09/17 07:33 Rocuronium [place] (Zemuron) Confirm Administered Dose 50 mg .ROUTE .STK-MED ONE Stop: 10/09/17 07:37 Succinylcholine Chloride (Succinylcholine In Ns Pf) Confirm Administered Dose 100 mg .ROUTE .STK-MED ONE Stop: 10/09/17 07:37
[2017-10-09] MEDS ORDERED: Ketamine 500 mg/10 ML MDV ONE (08:30)
[2017-10-09] MEDS ORDERED: fentaNYL 100 MCG/2 ML SDV ONE ×2 (09:49→10:34)
[2017-10-09] MEDS ORDERED: Propofol 200 MG/20 ML SDV ONE ×2 (10:03→10:21)
[2017-10-09] MEDS ORDERED: Lactated Ringers 1,000 ML ONE (10:15)
[2017-10-09] MEDS ORDERED: ceFAZolin 1 GM Vial ONE (10:16)
[2017-10-09] MEDS ORDERED: Ondansetron 4 MG/2 ML SDV ONE (10:27)
[2017-10-09] MEDS ORDERED: Ketorolac 30 MG/ML SDV ONE (10:27)
--- NOTE | 2017-10-09 10:45 | PCM.OPNOTE ---
- General Post-Op/Procedure Note Date of Surgery/Procedure: 10/09/17 Operative Procedure(s): Hysteroscopy with D&C [id number] Pre Op Diagnosis: Postmenopausal bleeding N95.0 Post-Op Diagnosis: Same Anesthesia Technique: General Mask Primary Surgeon: Angus Cheney Anesthesia Provider: Luigi Sanabria Fluid Replacement, Intraop: 1,300 EBL in mLs: 10 Drain/Tube Comments:: None Complications: None Condition: Good Free Text/Narrative:: Patient was transported to the operating room and placed under general anesthesia with mask in the low dorsal lithotomy position. Prepared and draped in sterile fashion. SCDs in place and functioning prior surgery. Ancef 2 g given intravenously prior surgery. Timeout performed confirming name, date of , and procedure as D&C and hysteroscopy. Examination under anesthesia revealed anterior uterus no adnexal masses palpated uterus sounded to 8 cm carefully dilated to accommodate the hysteroscope. Hysteroscope was introduced and the endometrial cavity was inspected the left and right tubal ostia were visualized no specific polyps were seen. There was slightly increased amount of tissue for patient's age. Endometrial curetting was performed all tissue sent to pathology for tissue evaluation image 3 taken first image 002 showing the right tubal ostium at approximate 7:00 image 003 shows the left tubal ostium at approximate 5:00 in image 004 showed a small amount of tissue floating in the endometrial cavity. Curettage was performed all tissue sent to pathology for tissue evaluation. There was no image 001 associated with this procedure. Patient was transported postanesthesia care unit in satisfactory condition
[2017-10-09] MEDS ORDERED: HYDROmorphone 0.5 MG/0.5 ML Syringe IVPUSH ONE (10:47)
[2017-10-09] MEDS ORDERED: fentaNYL 100 MCG/2 ML SDV IVPUSH PRN (10:47)
--- NOTE | 2017-10-09 10:47 | PCM.POSTAN ---
POST ANESTHESIA ASSESSMENT - MENTAL STATUS Mental Status: Alert, Oriented - VITAL SIGNS Pulse Rate: 78 SaO2: 97 Resp Rate: 20 Blood Pressure: 122/76 Temperature: 36.6 C - RESPIRATORY Respiratory Status: Respiratory Rate WNL, Airway Patent, O2 Saturation Stable, Supplemental Oxygen - CARDIOVASCULAR CV Status: Pulse Rate WNL, Blood Pressure Stable - GASTROINTESTINAL GI Status: No Symptoms - PAIN Pain Score: 8 (opioid given ) - POST OP HYDRATION Hydration Status: Adequate & Stable
[2017-10-09] MEDS ORDERED: Acetaminophen/oxyCODONE 325-5 MG Tab PO ONE (10:49)
--- NOTE | 2017-10-09 12:14 | PCM48HPAN ---
Post Anesthesia Note - EVALUATION WITHIN 48HRS OF ANESTHETIC Vital Signs in Normal Range: Yes Patient Participated in Evaluation: Yes Respiratory Function Stable: Yes Airway Patent: Yes Cardiovascular Function Stable: Yes Hydration Status Stable: Yes Pain Control Satisfactory: Yes Nausea and Vomiting Control Satisfactory: Yes Mental Status Recovered: Yes
[2017-10-09 14:22] VITALS: BP 122/76
--- NOTE | 2017-10-09 14:22 | PCM48HPAN ---
Post Anesthesia Note - EVALUATION WITHIN 48HRS OF ANESTHETIC Vital Signs in Normal Range: Yes Patient Participated in Evaluation: Yes Respiratory Function Stable: Yes Airway Patent: Yes Cardiovascular Function Stable: Yes Hydration Status Stable: Yes Pain Control Satisfactory: Yes Nausea and Vomiting Control Satisfactory: Yes Mental Status Recovered: Yes Pulse Rate: 78 Resp Rate: 20 Temperature: 36.6 C Blood Pressure: 122/76
== END 2017-10-09 11:45 | disposition home or self-care (01) ==
LOC: JD.SDS 07:33
PROVIDERS: ATTEND Obstetrics & Gynecology
PROC: 0UDB8ZX Extraction of Endometrium, Via Natural or Artificial Opening Endoscopic, Diagnostic (ICD-10-PCS; principal; 2017-10-09)
DX: N95.0 Postmenopausal bleeding (principal); J44.9 Chronic obstructive pulmonary disease, unspecified; F32.9 Major depressive disorder, single episode, unspecified; K21.9 Gastro-esophageal reflux disease without esophagitis; I10 Essential (primary) hypertension; E78.00 Pure hypercholesterolemia, unspecified; G62.9 Polyneuropathy, unspecified; G47.30 Sleep apnea, unspecified; R93.8 Abnormal findings on diagnostic imaging of other specified body structures; E11.9 Type 2 diabetes mellitus without complications; Z79.84 Long term (current) use of oral hypoglycemic drugs; Z79.82 Long term (current) use of aspirin; Z79.899 Other long term (current) drug therapy; Z87.891 Personal history of nicotine dependence
CPT/HCPCS: 36415; 58558; 80053; 81025; 85025; 86850; 86900; 86901; 93005; A9270; J0690; J1170; J1885; J2001; J2250; J2405; J3010; J7120; 00940; J0330; J2704

== ENCOUNTER 2017-11-27 07:23 | Day surgery (SDC) | payer MEDICAID ==
[~2017-11-27 07:23] MED LIST changes: -Lactated Ringers 1,000 ML IV SCH; -Midazolam 1 MG/ML 2 ML SDV ONE; -Propofol 200 MG/20 ML SDV ONE; -fentaNYL 100 MCG/2 ML SDV ONE
[2017-11-27] MEDS: Lactated Ringers 1,000 ML IV SCH ×2 (07:45→10:34)
[2017-11-27] MEDS ORDERED: Bupivacaine 0.5% 30 ML SDV ONE (07:50)
--- NOTE | 2017-11-27 08:28 | PCM.PREANE ---
Preanesthetic Assessment - Anesthesia/Transfusion/Family Hx Anesthesia History: Prior Anesthesia Without Reaction Family History of Anesthesia Reaction: No Transfusion History: No Prior Transfusion(s) - Review of Systems General: No Symptoms Pulmonary: No Symptoms Cardiovascular: No Symptoms Gastrointestinal: No Symptoms Neurological: Numbness (fingers and feet) Other: Reports: Diabetes (check 109 @ 0800), Anxiety - Physical Assessment NPO Status Date: 11/26/17 NPO Status Time: 21:30 Pulse: 71 O2 Sat by Pulse Oximetry: 95 Respiratory Rate: 16 Blood Pressure: 109/75 Temperature: 36.4 C Vital Signs: Last Vital Signs Temp 36.4 C 11/27/17 07:30 Pulse 71 11/27/17 07:30 Resp 16 11/27/17 07:30 BP 109/75 11/27/17 07:30 Pulse Ox 95 11/27/17 07:30 Height: 1.63 m Weight: 82.1 kg ASA Class: 2 Mental Status: Alert & Oriented x3 Airway Class: Mallampati = 2 Dentition: Reports: Normal Dentition, Missing Tooth/Teeth Thyro-Mental Finger Breadths: 2 Mouth Opening Finger Breadths: 3 ROM/Head Extension: Full Lungs: Clear to Auscultation, Normal Respiratory Effort Cardiovascular: Regular Rate, Regular Rhythm - Lab Values: Laboratory Last Values POC Glucose 109 mg/dL (70-105) H 11/27/17 07:44 - Allergies Allergies/Adverse Reactions: Allergies Allergy/AdvReac Type Severity Reaction Status Date / Time No Known Allergies Allergy Verified 11/26/17 14:54 - Blood Blood Available: Yes Product(s) Available: PRBC - Anesthesia Plan Pre-Op Medication Ordered: None - Acknowledgements Anesthesia Type Planned: General Anesthesia Pt an Appropriate Candidate for the Planned Anesthesia: Yes Alternatives and Risks of Anesthesia Discussed w Pt/Guardian: Yes Pt/Guardian Understands and Agrees with Anesthesia Plan: Yes PreAnesthesia Questionnaire HEENT History: Reports: Allergic Rhinitis Cardiovascular History: Reports: High Cholesterol, Hypertension Respiratory History: Reports: COPD, Sleep Apnea Gastrointestinal History: Reports: GERD Genitourinary History: Reports: UTI, Recurrent [employer] History: Reports: Ectopic , , Other (See Below) Other OB/BYN History: thickened endometrium, post menopausal bleeding, endometrial hyperplasia, condyloma acuminatum, Right breast cyst drainage, , laparotomy Musculoskeletal History: Reports: Back Pain, Chronic Neurological History: Reports: Neuropathy, Diabetic, Neuropathy, Peripheral, Other (See Below) Other Neuro History: cerviclagia Psychiatric History: Reports: Anxiety, Depression Endocrine/Metabolic History: Reports: Diabetes, Type II Hematologic History: Reports: None Immunologic History: Reports: None Oncologic (Cancer) History: Reports: None Dermatologic History: Reports: Other (See Below) Other Dermatologic History: lipoma excision, contusion to face - Past Surgical History Head Surgeries/Procedures: Reports: None HEENT Surgical History: Reports: None Cardiovascular Surgical History: Reports: None GI Surgical History: Reports: Colonoscopy Female Surgical History: Reports: Tubal Ligation Endocrine Surgical History: Reports: None Musculoskeletal Surgical History: Reports: None Oncologic Surgical History: Reports: None - SUBSTANCE USE Smoking Status *Q: Former Smoker Tobacco Use Within Last Twelve Months: No Second Hand Smoke Exposure: No Days Per Week of Alcohol Use: 0 Number of Drinks Per Day: 0 Total Drinks Per Week: 0 Recreational Drug Use History: No - HOME MEDS Home Medications: Home Meds Simvastatin [Zocor] 40 mg PO BEDTIME 12/26/16 [History] metFORMIN [Glucophage XR] 1,000 mg PO DAILY 12/26/16 [History] Gabapentin [Neurontin] 600 mg PO TID 10/02/17 [History] LORazepam [Ativan] 1 mg PO BID PRN 10/02/17 [History] Mometasone Furoate [Nasonex Erin] 2 spray STIVEN BID 10/02/17 [History] Multivitamins [Tab-A-Sita] 1 each PO DAILY 10/02/17 [History] Pantoprazole [ProTONIX] 40 mg PO DAILY 10/02/17 [History] amLODIPine [Norvasc] 10 mg PO DAILY 10/02/17 [History] tiZANidine [Zanaflex] 4 mg PO QID 10/02/17 [History] traMADol [Ultram] 100 mg PO TID PRN 10/02/17 [History] Aspirin [Adult Low Dose Aspirin EC] 81 mg PO DAILY 10/08/17 [History] FLUoxetine HCl [Fluoxetine HCl] 40 mg PO DAILY 11/26/17 [History] Triamcinolone Acetonide [Triamcinolone Acetonide 0.1% Crm] 1 dose TOP BID [History] - CURRENT (IN HOUSE) MEDS Current Meds: Current Medications Lactated Ringer's (Ringers, Lactated) 1,000 mls @ 125 mls/hr IV ASDIRECTED AP Stop: 11/27/17 23:00 Last Admin: 11/27/17 07:45 Dose: 125 mls/hr Lidocaine/Sodium Bicarbonate (Buffered Lidocaine 1% In Ns 8.4%) 0.25 ml IDERM ONETIME PRN PRN Reason: Prior to IV Start Stop: 11/27/17 18:00 Last Admin: 11/27/17 07:45 Dose: 0.25 ml Sodium Chloride (Saline Flush) 10 ml FLUSH ASDIRECTED PRN PRN Reason: Keep Vein Open Stop: 11/27/17 18:00 Discontinued Medications Bupivacaine HCl (Marcaine 0.5%) Confirm Administered Dose 30 ml .ROUTE .STK-MED ONE Stop: 11/27/17 07:51 Lidocaine/Epinephrine (Xylocaine 1% With Epinephrine 1:100,000) Confirm Administered Dose 20 ml .ROUTE .STK-MED ONE Stop: 11/27/17 07:51 Sodium Chloride (Normal Saline) Confirm Administered Dose 50 ml .ROUTE .STK-MED ONE Stop: 11/27/17 07:51
[2017-11-27] MEDS ORDERED: Ondansetron 4 MG/2 ML SDV ONE (08:34)
[2017-11-27] MEDS ORDERED: Rocuronium 50 MG/5 ML Vial ONE (08:34)
[2017-11-27] MEDS ORDERED: ceFAZolin 1 GM Vial ONE (08:34)
[2017-11-27] MEDS ORDERED: Midazolam 1 MG/ML 2 ML SDV ONE (08:34)
[2017-11-27] MEDS ORDERED: Lidocaine 1% 4 ML ONE (08:34)
[2017-11-27] MEDS ORDERED: Propofol 200 MG/20 ML SDV ONE (08:34)
[2017-11-27] MEDS ORDERED: fentaNYL 250 MCG/5 ML SDV ONE (08:34)
[2017-11-27] MEDS ORDERED: Dexamethasone 4 MG/ML 5 ML MDV ONE (08:58)
[2017-11-27] MEDS ORDERED: diphenhydrAMINE 50 MG/ML SDV ONE (08:58)
[2017-11-27] MEDS ORDERED: HYDROmorphone 0.5 MG/0.5 ML Syringe ONE ×2 (09:21)
[2017-11-27] MEDS: Sodium Chloride 0.9% 50 ML SDV ONE ×2 (09:36→09:40)
[2017-11-27] MEDS: Lidocaine 1% with EPINEPHrine 1:100,000 20 ML MDV ONE ×2 (09:36→09:40)
[2017-11-27] MEDS ORDERED: Lactated Ringers 1,000 ML ONE (10:06)
[2017-11-27] MEDS ORDERED: Phenylephrine/Normal Saline 100 MCG/ML 10 ML Syringe ONE (10:06)
[2017-11-27] MEDS ORDERED: fentaNYL 100 MCG/2 ML SDV IVPUSH PRN (10:29)
[2017-11-27] MEDS ORDERED: HYDROmorphone 0.5 MG/0.5 ML Syringe IVPUSH PRN (10:29)
--- NOTE | 2017-11-27 10:32 | PCM.OPNOTE ---
- General Post-Op/Procedure Note Date of Surgery/Procedure: 11/27/17 Operative Procedure(s): Laparoscope assisted vaginal hysterectomy bilateral salpingectomy and left oophorectomy [id number] Pre Op Diagnosis: Postmenopausal bleeding, thickened endometrium by ultrasound, complex hyperplasia of endometrium without atypia Post-Op Diagnosis: Same Anesthesia Technique: General ET Tube Primary Surgeon: Angus Cheney Secondary Surgeon: Víctor Graf Anesthesia Provider: Dany Jane Data Security Administrator: Jorge Castelan (vaginal portion 2nd asst) Reason Data Security Administrator Was Necessary: Difficulty of surgery, retraction, decrease comorbidity and mortality Role of Data Security Administrator: Difficulty of surgery, retraction, decrease comorbidity and mortality Fluid Replacement, Intraop: 2,000 Output, Urine Amount: 50 EBL in mLs: 10 Drain/Tube Comments:: None Complications: None Condition: Good Free Text/Narrative:: Patient was transported to the operating room and placed under general anesthesia with endotracheal intubation low dorsal lithotomy position and prepared and draped in a sterile fashion. Wadsworth catheter placed gravity drainage. Timeout performed confirming name, date of and procedure. Examination under anesthesia had revealed anterior uterus with a "thickening" of the left adnexa. The patient's umbilicus was injected with 2 mL of 0.5% Marcaine without epinephrine and a vertical incision made in pneumoperitoneum obtained introducing the varies and needle followed by 5 mm self-retaining trocar. Midline incision was also made after injecting 2 mL Marcaine and 5 mm port placed as well as left and right lower quadrant or flank incision 5 mm in length injecting with 2 mL of Marcaine and transilluminating the abdomen trochars introduced without difficulty the uterus was grasped at the right side fimbriated end of fallopian tube was identified and crossclamped with the Enseal activated and incised and proceeding towards the uterus until the fimbria on the right side with the remaining fallopian tube (patient had had tubal ligation) the round ligament was then crossclamped with the Enseal activated and incised and proceeding caudad crossclamping activating and incising until the reflection of the bladder flap anteriorly could be produced. The left side was then grasped the left ovary had multiple cysts and patient and I had discussed possibly removing 1 ovary especially if it was cystic she desired to have it removed the left ovary was removed in (right ovary was not removed) being the tube and ovary the infundibulopelvic ligament was crossclamped with the Enseal activated in size and proceeding towards the uterus until approximating the round ligament crossclamping activating and incising. Proceeding cephalad crossclamping activating and incising until the reflection of the bladder flap was approximated at the midline. Hemostasis was normal and the pneumoperitoneum was reduced and the vaginal portion of the procedure begun. Injecting 0.25% lidocaine with epinephrine and multiple confluent areas 20 mL total massaging this into the tissue circumscribing the cervix with a knife. Posterior cul-de-sac was then entered without difficulty. Crossclamping utilizing Enseal activating and incising the uterosacral and cardinal bundles were incised. Anterior colpotomy was then performed without difficulty and additional clamp activation incision on each side allow the uterus to be removed. The posterior cuff was closed with 0 Monocryl running locking suture after confirming hemostasis was normal. The anterior vaginal cuff was then approximated to the posterior vaginal cuff with a running locking suture of 0 Monocryl. Sponge needle pack instrument and sharp count correct 2 and closure the abdominal cavity. Attention was then returned to the laparoscope pneumoperitoneum was re-established examination of the operative site showed no bleeding sponge needle pack instrument sharp count x1. Having reduced the pneumoperitoneum the 4 incisions on the abdomen were closed with 4- 0 Monocryl interrupted sutures and Dermabond applied. One set of pictures taken Image 001 shows the right tube and ovary Image 002 shows the left ovary which is multicystic Image 003 shows the left ovary and tube. Image 004 shows the peritoneal surface and cul-de-sac after completion of hysterectomy Image 005 shows the right ovary intact and good blood supply.
[2017-11-27] MEDS ORDERED: Ondansetron 4 MG/2 ML SDV IVPUSH PRN (12:40)
[2017-11-27] MEDS ORDERED: LORazepam 1 MG Tab PO PRN (12:47)
[2017-11-27] MEDS: HYDROmorphone 0.5 MG/0.5 ML Syringe IVPUSH PRN ×2 (12:56→16:51)
[2017-11-27] MEDS: tiZANidine 4 MG Tab PO SCH ×3 (13:05→21:57)
[2017-11-27] MEDS: Gabapentin 600 MG Tab PO SCH ×2 (15:18→21:58)
[2017-11-27] MEDS: Acetaminophen/oxyCODONE 325-5 MG Tab PO PRN ×2 (15:24→19:25)
[2017-11-27] MEDS ORDERED: Ibuprofen 600 MG Tab PO PRN (16:00)
--- NOTE | 2017-11-27 16:45 | PCM.SN ---
- Free Text/Narrative Note: Awake, alert. No heavy vaginal bleeding. One more dose of Dilaudid then at HS 5 mg Morphine sulfate and 25 mg Vistaril. Percocet in interum for pain 2 po q4h. No leg cramps.
[2017-11-27] MEDS ORDERED: hydrOXYzine HCl 25 MG/ML SDV IM ONE (21:00)
[2017-11-27] MEDS ORDERED: Simvastatin 40 MG Tab PO SCH (21:00)
[2017-11-27] MEDS ORDERED: Morphine 10 MG/ML Syringe IM ONE (21:00)
[2017-11-28] MEDS: Acetaminophen/oxyCODONE 325-5 MG Tab PO PRN ×2 (02:25→07:16)
[2017-11-28] MEDS ORDERED: HYDROmorphone 0.5 MG/0.5 ML Syringe IVPUSH ONE (03:22)
--- NOTE | 2017-11-28 08:35 | PCM48HPAN ---
Post Anesthesia Note - EVALUATION WITHIN 48HRS OF ANESTHETIC Vital Signs in Normal Range: Yes Patient Participated in Evaluation: Yes Respiratory Function Stable: Yes Airway Patent: Yes Cardiovascular Function Stable: Yes Hydration Status Stable: Yes Pain Control Satisfactory: Yes Nausea and Vomiting Control Satisfactory: Yes Mental Status Recovered: Yes Pulse Rate: 69 Resp Rate: 16 Temperature: 98.2 F Blood Pressure: 126/73 - COMMENTS/OBSERVATIONS Free Text/Narrative:: Patient on postoperative day 1. Denies having nausea or vomiting after surgery. Rates her postoperative pain at 5-6/10. Taking PO nutrition and fluids well. Ambulates to the restroom, no urinary retention.
[2017-11-28] MEDS ORDERED: HYDROmorphone 1 MG/ML Syringe IVPUSH ONE (08:41)
--- NOTE | 2017-11-28 08:47 | PCM.DCSUM1 ---
Discharge Summary - Hospital Course Free Text/Narrative:: 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 Post-Op Diagnosis: Same Anesthesia Technique: General ET Tube Primary Surgeon: Angus Cheney Secondary Surgeon: Víctor Graf Anesthesia Provider: Dany Jane Specimen Technician: Jorge Castelan (vaginal portion 2nd asst) Reason Specimen Technician Was Necessary: Difficulty of surgery, retraction, decrease comorbidity and mortality Role of Specimen Technician: Difficulty of surgery, retraction, decrease comorbidity and mortality Fluid Replacement, Intraop: 2,000 Output, Urine Amount: 50 EBL in mLs: 10 Drain/Tube Comments:: None Complications: None Condition: Good Free Text/Narrative:: Patient was transported to the operating room and placed under general anesthesia with endotracheal intubation low dorsal lithotomy position and prepared and draped in a sterile fashion. Wadsworth catheter placed gravity drainage. Timeout performed confirming name, date of and procedure. Examination under anesthesia had revealed anterior uterus with a "thickening" of the left adnexa. The patient's umbilicus was injected with 2 mL of 0.5% Marcaine without epinephrine and a vertical incision made in pneumoperitoneum obtained introducing the varies and needle followed by 5 mm self-retaining trocar. Midline incision was also made after injecting 2 mL Marcaine and 5 mm port placed as well as left and right lower quadrant or flank incision 5 mm in length injecting with 2 mL of Marcaine and transilluminating the abdomen trochars introduced without difficulty the uterus was grasped at the right side fimbriated end of fallopian tube was identified and crossclamped with the Enseal activated and incised and proceeding towards the uterus until the fimbria on the right side with the remaining fallopian tube (patient had had tubal ligation) the round ligament was then crossclamped with the Enseal activated and incised and proceeding caudad crossclamping activating and incising until the reflection of the bladder flap anteriorly could be produced. The left side was then grasped the left ovary had multiple cysts and patient and I had discussed possibly removing 1 ovary especially if it was cystic she desired to have it removed the left ovary was removed in (right ovary was not removed) being the tube and ovary the infundibulopelvic ligament was crossclamped with the Enseal activated in size and proceeding towards the uterus until approximating the round ligament crossclamping activating and incising. Proceeding cephalad crossclamping activating and incising until the reflection of the bladder flap was approximated at the midline. Hemostasis was normal and the pneumoperitoneum was reduced and the vaginal portion of the procedure begun. Injecting 0.25% lidocaine with epinephrine and multiple confluent areas 20 mL total massaging this into the tissue circumscribing the cervix with a knife. Posterior cul-de-sac was then entered without difficulty. Crossclamping utilizing Enseal activating and incising the uterosacral and cardinal bundles were incised. Anterior colpotomy was then performed without difficulty and additional clamp activation incision on each side allow the uterus to be removed. The posterior cuff was closed with 0 Monocryl running locking suture after confirming hemostasis was normal. The anterior vaginal cuff was then approximated to the posterior vaginal cuff with a running locking suture of 0 Monocryl. Sponge needle pack instrument and sharp count correct 2 and closure the abdominal cavity. Attention was then returned to the laparoscope pneumoperitoneum was re-established examination of the operative site showed no bleeding sponge needle pack instrument sharp count x1. Having reduced the pneumoperitoneum the 4 incisions on the abdomen were closed with 4- 0 Monocryl interrupted sutures and Dermabond applied. One set of pictures taken Image 001 shows the right tube and ovary Image 002 shows the left ovary which is multicystic Image 003 shows the left ovary and tube. Image 004 shows the peritoneal surface and cul-de-sac after completion of hysterectomy Image 005 shows the right ovary intact and good blood supply. HPI Initial Comments: [facility] Post-Op/Procedure Note Patient Name: ARTURO DONNELLY Date of : 67 Patient Status: Surgical Day Care Attending Provider: Angus Cheney Date: 11/27/17 10:22 Initialization Date: 11/27/17 10:22 - General Post-Op/Procedure Note Date of Surgery/Procedure: 11/27/17 Operative Procedure(s): Laparoscope assisted vaginal hysterectomy bilateral salpingectomy and left oophorectomy 07474 Pre Op Diagnosis: Postmenopausal bleeding, thickened endometrium by ultrasound, complex hyperplasia of endometrium without atypia Post-Op Diagnosis: Same Anesthesia Technique: General ET Tube Primary Surgeon: Angus Cheney Secondary Surgeon: Víctor Graf Anesthesia Provider: Dany Jane Specimen Technician: Jorge Castelan (vaginal portion 2nd asst) Reason Specimen Technician Was Necessary: Difficulty of surgery, retraction, decrease comorbidity and mortality Role of Specimen Technician: Difficulty of surgery, retraction, decrease comorbidity and mortality Fluid Replacement, Intraop: 2,000 Output, Urine Amount: 50 EBL in mLs: 10 Drain/Tube Comments:: None Complications: None Condition: Good Free Text/Narrative:: Patient was transported to the operating room and placed under general anesthesia with endotracheal intubation low dorsal lithotomy position and prepared and draped in a sterile fashion. Wadsworth catheter placed gravity drainage. Timeout performed confirming name, date of and procedure. Examination under anesthesia had revealed anterior uterus with a "thickening" of the left adnexa. The patient's umbilicus was injected with 2 mL of 0.5% Marcaine without epinephrine and a vertical incision made in pneumoperitoneum obtained introducing the varies and needle followed by 5 mm self-retaining trocar. Midline incision was also made after injecting 2 mL Marcaine and 5 mm port placed as well as left and right lower quadrant or flank incision 5 mm in length injecting with 2 mL of Marcaine and transilluminating the abdomen trochars introduced without difficulty the uterus was grasped at the right side fimbriated end of fallopian tube was identified and crossclamped with the Enseal activated and incised and proceeding towards the uterus until the fimbria on the right side with the remaining fallopian tube (patient had had tubal ligation) the round ligament was then crossclamped with the Enseal activated and incised and proceeding caudad crossclamping activating and incising until the reflection of the bladder flap anteriorly could be produced. The left side was then grasped the left ovary had multiple cysts and patient and I had discussed possibly removing 1 ovary especially if it was cystic she desired to have it removed the left ovary was removed in (right ovary was not removed) being the tube and ovary the infundibulopelvic ligament was crossclamped with the Enseal activated in size and proceeding towards the uterus until approximating the round ligament crossclamping activating and incising. Proceeding cephalad crossclamping activating and incising until the reflection of the bladder flap was approximated at the midline. Hemostasis was normal and the pneumoperitoneum was reduced and the vaginal portion of the procedure begun. Injecting 0.25% lidocaine with epinephrine and multiple confluent areas 20 mL total massaging this into the tissue circumscribing the cervix with a knife. Posterior cul-de-sac was then entered without difficulty. Crossclamping utilizing Enseal activating and incising the uterosacral and cardinal bundles were incised. Anterior colpotomy was then performed without difficulty and additional clamp activation incision on each side allow the uterus to be removed. The posterior cuff was closed with 0 Monocryl running locking suture after confirming hemostasis was normal. The anterior vaginal cuff was then approximated to the posterior vaginal cuff with a running locking suture of 0 Monocryl. Sponge needle pack instrument and sharp count correct 2 and closure the abdominal cavity. Attention was then returned to the laparoscope pneumoperitoneum was re-established examination of the operative site showed no bleeding sponge needle pack instrument sharp count x1. Having reduced the pneumoperitoneum the 4 incisions on the abdomen were closed with 4- 0 Monocryl interrupted sutures and Dermabond applied. One set of pictures taken Image 001 shows the right tube and ovary Image 002 shows the left ovary which is multicystic Image 003 shows the left ovary and tube. Image 004 shows the peritoneal surface and cul-de-sac after completion of hysterectomy Image 005 shows the right ovary intact and good blood supply. Brief History: [facility] . Post-Op/Procedure Note. [facility]: [id number]. Date of : Patient Status: Surgical Day Care. Attending Provider: Angus Cheneyount Number: [id number]. Date: 11/27/17 10:22Initialization Date: 10:22. - General Post-Op/Procedure Note. Date of Surgery/Procedure: . Operative Procedure(s): Laparoscope assisted vaginal hysterectomy bilateral salpingectomy and left oophorectomy 31775. Pre Op Diagnosis: Postmenopausal bleeding, thickened endometrium by ultrasound, complex hyperplasia of endometrium without atypia. Post-Op Diagnosis: Same. Anesthesia Technique: General ET Tube. Primary Surgeon: Angus Cheney. Secondary Surgeon: Víctor Graf. Anesthesia Provider: Dany Jane. Specimen Technician: Jorge Castelan (vaginal portion 2nd asst). Reason Specimen Technician Was Necessary: Difficulty of surgery, retraction, decrease comorbidity and mortality. Role of Specimen Technician: Difficulty of surgery, retraction, decrease comorbidity and mortality. Fluid Replacement, Intraop: 2,000. Output, Urine Amount: 50. EBL in mLs: 10. Drain/Tube Comments:: None. Complications: None. Condition: Good. Free Text/Narrative:: Patient was transported to the operating room and placed under general anesthesia with endotracheal intubation low dorsal lithotomy position and prepared and draped in a sterile fashion. Wadsworth catheter placed gravity drainage. Timeout performed confirming name, date of and procedure. Examination under anesthesia had revealed anterior uterus with a "thickening" of the left adnexa. The patient's umbilicus was injected with 2 mL of 0.5% Marcaine without epinephrine and a vertical incision made in pneumoperitoneum obtained introducing the varies and needle followed by 5 mm self-retaining trocar. Midline incision was also made after injecting 2 mL Marcaine and 5 mm port placed as well as left and right lower quadrant or flank incision 5 mm in length injecting with 2 mL of Marcaine and transilluminating the abdomen trochars introduced without difficulty the uterus was grasped at the right side fimbriated end of fallopian tube was identified and crossclamped with the Enseal activated and incised and proceeding towards the uterus until the fimbria on the right side with the remaining fallopian tube (patient had had tubal ligation) the round ligament was then crossclamped with the Enseal activated and incised and proceeding caudad crossclamping activating and incising until the reflection of the bladder flap anteriorly could be produced. The left side was then grasped the left ovary had multiple cysts and patient and I had discussed possibly removing 1 ovary especially if it was cystic she desired to have it removed the left ovary was removed in (right ovary was not removed) being the tube and ovary the infundibulopelvic ligament was crossclamped with the Enseal activated in size and proceeding towards the uterus until approximating the round ligament crossclamping activating and incising. Proceeding cephalad crossclamping activating and incising until the reflection of the bladder flap was approximated at the midline. Hemostasis was normal and the pneumoperitoneum was reduced and the vaginal portion of the procedure begun. Injecting 0.25% lidocaine with epinephrine and multiple confluent areas 20 mL total massaging this into the tissue circumscribing the cervix with a knife. Posterior cul-de-sac was then entered without difficulty. Crossclamping utilizing Enseal activating and incising the uterosacral and cardinal bundles were incised. Anterior colpotomy was then performed without difficulty and additional clamp activation incision on each side allow the uterus to be removed. The posterior cuff was closed with 0 Monocryl running locking suture after confirming hemostasis was normal. The anterior vaginal cuff was then approximated to the posterior vaginal cuff with a running locking suture of 0 Monocryl. Sponge needle pack instrument and sharp count correct 2 and closure the abdominal cavity. Attention was then returned to the laparoscope pneumoperitoneum was re-established examination of the operative site showed no bleeding sponge needle pack instrument sharp count x1. Having reduced the pneumoperitoneum the 4 incisions on the abdomen were closed with 4- 0 Monocryl interrupted sutures and Dermabond applied. One set of pictures taken. Image 001 shows the right tube and ovary. Image 002 shows the left ovary which is multicystic. Image 003 shows the left ovary and tube. Image 004 shows the peritoneal surface and cul-de-sac after completion of hysterectomy. Image 005 shows the right ovary intact and good blood supply. Diagnosis: Stroke: No - Discharge Data Discharge Date: 11/28/17 Discharge Disposition: Home, Self-Care 01 Condition: Good - Discharge Diagnosis/Problem(s) (1) Complex endometrial hyperplasia without atypia SNOMED Code(s): 59693388698613213 ICD Code: N85.01 - BENIGN ENDOMETRIAL HYPERPLASIA Status: Acute Current Visit: Yes (2) Endometrial thickening on ultrasound SNOMED Code(s): 931610678, 02002000271829304 ICD Code: R93.8 - ABNORMAL FINDINGS ON DIAGNOSTIC IMAGING OF BODY STRUCTURES Status: Acute Current Visit: Yes (3) Post-menopausal bleeding SNOMED Code(s): 56116628 ICD Code: N95.0 - POSTMENOPAUSAL BLEEDING Status: Acute Current Visit: Yes - Patient Summary/Data Operative Procedure(s) Performed: Laparoscope assisted vaginal hysterectomy bilateral salpingectomy and left oophorectomy 34530 Complications: none Consults: none Hospital Course: uneventful - Patient Instructions Diet: Regular Diet as Tolerated Driving: Do Not Drive (x48 hrs or if on medications that prohibit driving) Showering/Bathing: May Shower, No Tub Bathing/Swimming (x6 weeks.) Wound/Incision Care: Keep Operative Site/Wound Site Clean and Dry Notify Provider of: Fever, Increased Pain, Swelling and Redness, Drainage, Nausea and/or Vomiting - Discharge Plan *PRESCRIPTION DRUG MONITORING PROGRAM REVIEWED*: Yes *COPY OF PRESCRIPTION DRUG MONITORING REPORT IN PATIENT MEAGAN: Yes Home Medications: Home Meds Simvastatin [Zocor] 40 mg PO BEDTIME 12/26/16 [History] metFORMIN [Glucophage XR] 1,000 mg PO DAILY 12/26/16 [History] Gabapentin [Neurontin] 600 mg PO TID 10/02/17 [History] LORazepam [Ativan] 1 mg PO BID PRN 10/02/17 [History] Mometasone Furoate [Nasonex [place]] 2 spray STIVEN BID 10/02/17 [History] Multivitamins [Tab-A-Sita] 1 each PO DAILY 10/02/17 [History] Pantoprazole [ProTONIX] 40 mg PO DAILY 10/02/17 [History] amLODIPine [Norvasc] 10 mg PO DAILY 10/02/17 [History] tiZANidine [Zanaflex] 4 mg PO QID 10/02/17 [History] traMADol [Ultram] 100 mg PO TID PRN 10/02/17 [History] Aspirin [Adult Low Dose Aspirin EC] 81 mg PO DAILY 10/08/17 [History] FLUoxetine HCl [Fluoxetine HCl] 40 mg PO DAILY 11/26/17 [History] Triamcinolone Acetonide [Triamcinolone Acetonide 0.1% Crm] 1 dose TOP BID [History] Referrals: Angus Cheney MD [Physician] - (12/11/2017) - Discharge Summary/Plan Comment DC Time >30 min.: No - Patient Data Vitals - Most Recent: Last Vital Signs Temp 98.2 F 11/28/17 08:35 Pulse 69 11/28/17 08:35 Resp 16 11/28/17 08:35 BP 126/73 11/28/17 08:35 Pulse Ox 96 11/28/17 03:12 Weight - Most Recent: 181 lb I&O - Last 24 hours: Intake & Output 11/27/17 11/28/17 11/28/17 22:59 06:59 14:59 Intake Total 60 Balance 60 Lab Results - Last 24 hrs: Laboratory Results - last 24 hr 11/27/17 11/28/17 Range/Units 07:40 05:30 WBC 14.28 H (3.98-10.04) K/mm3 RBC 3.94 L (3.98-5.22) M/mm3 Hgb 11.9 (11.2-15.7) gm/L Hct 36.2 (34.1-44.9) % MCV 91.9 (79.4-94.8) fl MCH 30.2 (25.6-32.2) pg MCHC 32.9 (32.2-35.5) g/dl RDW Std Deviation 40.9 (36.4-46.3) fL Plt Count 325 (182-369) K/mm3 MPV 9.6 (9.4-12.3) fl Neut % (Auto) 76.3 H (34.0-71.1) % Lymph % (Auto) 13.9 L (19.3-51.7) % [place] % (Auto) 9.5 (4.7-12.5) % Eos % (Auto) 0 L (0.7-5.8) Baso % (Auto) 0.1 (0.1-1.2) % Neut # (Auto) 10.90 H (1.56-6.13) K/mm3 Lymph # (Auto) 1.99 (1.18-3.74) K/mm3 [place] # (Auto) 1.35 H (0.24-0.36) K/mm3 Eos # (Auto) 0.00 L (0.04-0.36) K/mm3 Baso # (Auto) 0.01 (0.01-0.08) K/mm3 Blood Type O POSITIVE Gel Antibody Screen Negative Med Orders - Current: Current Medications Amlodipine Besylate (Norvasc) 10 mg PO DAILY [facility] Aspirin (Halfprin) 81 mg PO DAILY [facility] Flunisolide (Nasalide Nasal [place]) 0 ml STIVEN BID [facility] Last Admin: 11/28/17 03:00 Dose: Not Given Fluoxetine HCl (Prozac) 40 mg PO DAILY [facility] Gabapentin (Neurontin) 600 mg PO TID [facility] Last Admin: 11/27/17 21:58 Dose: 600 mg Ibuprofen (Motrin) 600 mg PO Q6H PRN PRN Reason: Pain Lorazepam (Ativan) 1 mg PO BID PRN PRN Reason: Anxiety Last Admin: 11/28/17 02:31 Dose: 1 mg Metformin HCl (Glucophage) 1,000 mg PO DAILY [facility] Multivitamins (Thera) 1 each PO DAILY [facility] Ondansetron HCl (Zofran) 4 mg IVPUSH Q8H PRN PRN Reason: Nausea Oxycodone/Acetaminophen (Percocet 325-5 Mg) 1 - 2 tab PO Q4HR PRN PRN Reason: Pain Last Admin: 11/28/17 07:16 Dose: 2 tab Pantoprazole Sodium (Protonix) 40 mg PO DAILY [facility] Simvastatin (Zocor) 40 mg PO BEDTIME [facility] Last Admin: 11/27/17 21:58 Dose: 40 mg Tizanidine HCl (Zanaflex) 4 mg PO QID [facility] Last Admin: 11/27/17 21:57 Dose: 4 mg Discontinued Medications Bupivacaine HCl (Marcaine 0.5%) Confirm Administered Dose 30 ml .ROUTE .STK-MED ONE Stop: 11/27/17 07:51 Last Admin: 11/27/17 09:16 Dose: 15 ml Cefazolin Sodium (Ancef) Confirm Administered Dose 2 gm .ROUTE .STK-MED ONE Stop: 11/27/17 08:35 Dexamethasone (Dexamethasone) Confirm Administered Dose 20 mg .ROUTE .STK-MED ONE Stop: 11/27/17 08:59 Diphenhydramine HCl (Benadryl) Confirm Administered Dose 50 mg .ROUTE .STK-MED ONE Stop: 11/27/17 08:59 Fentanyl (Sublimaze) Confirm Administered Dose 250 mcg .ROUTE .STK-MED ONE Stop: 11/27/17 08:35 Fentanyl (Sublimaze) 50 mcg IVPUSH Q5M PRN PRN Reason: Pain Stop: 11/27/17 18:00 Glycopyrrolate () Confirm Administered Dose 1 mg .ROUTE .STK-MED ONE Stop: 11/27/17 09:27 Hydromorphone HCl (Dilaudid) Confirm Administered Dose 0.5 mg .ROUTE .STK-MED ONE Stop: 11/27/17 09:22 Hydromorphone HCl (Dilaudid) Confirm Administered Dose 0.5 mg .ROUTE .STK-MED ONE Stop: 11/27/17 09:22 Hydromorphone HCl (Dilaudid) 0.5 mg IVPUSH ONETIME PRN PRN Reason: For pain Stop: 11/27/17 18:00 Hydromorphone HCl (Dilaudid) 0.5 mg IVPUSH Q1H PRN PRN Reason: pain Stop: 11/27/17 18:00 Last Admin: 11/27/17 16:51 Dose: 0.5 mg Hydromorphone HCl (Dilaudid) 0.5 mg IVPUSH ONETIME ONE Stop: 11/28/17 03:23 Last Admin: 11/28/17 03:36 Dose: 0.5 mg Hydromorphone HCl (Dilaudid) 1 mg IVPUSH ONETIME ONE Stop: 11/28/17 08:42 Hydroxyzine HCl (Vistaril) 25 mg IM ONETIME ONE Stop: 11/27/17 21:01 Last Admin: 11/27/17 21:59 Dose: 25 mg Lactated Ringer's (Ringers, Lactated) 1,000 mls @ 125 mls/hr IV ASDIRECTED AP Stop: 11/27/17 23:00 Last Admin: 11/27/17 10:34 Dose: 125 mls/hr Lidocaine HCl (Xylocaine-Mpf 1%) Confirm Administered Dose 4 mls @ as directed .ROUTE .STK-MED ONE Stop: 11/27/17 08:35 Lactated Ringer's (Ringers, Lactated) Confirm Administered Dose 1,000 mls @ as directed .ROUTE .STK-MED ONE Stop: 11/27/17 10:07 Lidocaine/Epinephrine (Xylocaine 1% With Epinephrine 1:100,000) Confirm Administered Dose 20 ml .ROUTE .STK-MED ONE Stop: 11/27/17 07:51 Last Admin: 11/27/17 09:40 Dose: 5 ml Lidocaine/Sodium Bicarbonate (Buffered Lidocaine 1% In Ns 8.4%) 0.25 ml IDERM ONETIME PRN PRN Reason: Prior to IV Start Stop: 11/27/17 18:00 Last Admin: 11/27/17 07:45 Dose: 0.25 ml Midazolam HCl (Versed 1 Mg/Ml) Confirm Administered Dose 2 mg .ROUTE .STK-MED ONE Stop: 11/27/17 08:35 Morphine Sulfate (Morphine) 5 mg IM ONETIME ONE Stop: 11/27/17 21:01 Last Admin: 11/27/17 21:59 Dose: 5 mg Ondansetron HCl (Zofran) Confirm Administered Dose 4 mg .ROUTE .STK-MED ONE Stop: 11/27/17 08:35 Phenylephrine HCl (Phenylephrine In Ns 100 Mcg/Ml) Confirm Administered Dose 1 mg .ROUTE .STK-MED ONE Stop: 11/27/17 10:07 Propofol (Diprivan 20 Ml) Confirm Administered Dose 200 mg .ROUTE .STK-MED ONE Stop: 11/27/17 08:35 Rocuronium [place] (Zemuron) Confirm Administered Dose 50 mg .ROUTE .STK-MED ONE Stop: 11/27/17 08:35 Sodium Chloride (Saline Flush) 10 ml FLUSH ASDIRECTED PRN PRN Reason: Keep Vein Open Stop: 11/27/17 18:00 Sodium Chloride (Normal Saline) Confirm Administered Dose 50 ml .ROUTE .STK-MED ONE Stop: 11/27/17 07:51 Last Admin: 11/27/17 09:40 Dose: 15 ml
[2017-11-28] MEDS: Gabapentin 600 MG Tab PO SCH (08:59)
[2017-11-28] MEDS: tiZANidine 4 MG Tab PO SCH (08:59)
[2017-11-28 09:00] VITALS: BP 110/55
[2017-11-28] MEDS ORDERED: amLODIPine 10 MG Tab PO SCH (09:00)
[2017-11-28] MEDS ORDERED: Multivitamins,Therapeutic Tab PO SCH (09:00)
[2017-11-28] MEDS ORDERED: Aspirin 81 MG Tab.EC PO SCH (09:00)
[2017-11-28] MEDS ORDERED: metFORMIN 500 MG Tab PO SCH (09:00)
[2017-11-28] MEDS ORDERED: Pantoprazole 40 MG Tab.CR PO SCH (09:00)
[2017-11-28] MEDS ORDERED: FLUoxetine 20 MG Cap PO SCH (16:00)
== END 2017-11-28 10:03 | disposition home or self-care (01) ==
LOC: JD.SDS 07:23 → JD.MS 11:56 → JD.SDS 11-28 10:03
PROVIDERS: ATTEND Obstetrics & Gynecology
DX: N95.0 Postmenopausal bleeding (principal); N88.8 Other specified noninflammatory disorders of cervix uteri; N80.0 Endometriosis of uterus; N87.9 Dysplasia of cervix uteri, unspecified; D27.1 Benign neoplasm of left ovary; N83.02 Follicular cyst of left ovary; N73.6 Female pelvic peritoneal adhesions (postinfective); N83.8 Other noninflammatory disorders of ovary, fallopian tube and broad ligament; E11.42 Type 2 diabetes mellitus with diabetic polyneuropathy; J44.9 Chronic obstructive pulmonary disease, unspecified; I10 Essential (primary) hypertension; K21.9 Gastro-esophageal reflux disease without esophagitis; E78.00 Pure hypercholesterolemia, unspecified; F32.9 Major depressive disorder, single episode, unspecified; Z87.891 Personal history of nicotine dependence; Z79.84 Long term (current) use of oral hypoglycemic drugs; Z79.82 Long term (current) use of aspirin; Z79.51 Long term (current) use of inhaled steroids; Z79.899 Other long term (current) drug therapy
CPT/HCPCS: 00944; 36415; 82962; 85025; 86850; 86900; 86901; A9270-GY; J0690; J1100; J1170; J1200; J2001; J2250; J2270; J2370; J2405; J2704; J3010; J3410; J3490; J7120

== ENCOUNTER 2017-11-30 13:16 | Emergency (ER) | payer MEDICAID ==
[2017-11-30 13:37] VITALS: BP 146/89
[2017-11-30] MEDS ORDERED: Sodium Chloride 0.9% 10 ML Syringe FLUSH PRN (14:04)
[2017-11-30] MEDS ORDERED: HYDROmorphone 0.5 MG/0.5 ML SYRINGE IVPUSH ONE ×3 (14:07→17:02)
[2017-11-30] MEDS ORDERED: Ondansetron 4 MG/2 ML SDV IVPUSH ONE (14:07)
--- NOTE | 2017-11-30 14:10 | EDM.PDOC ---
ED HPI GENERAL MEDICAL PROBLEM - General Chief Complaint: Abdominal Pain Stated Complaint: CRAMPS & FEVER Time Seen by Provider: 11/30/17 14:00 Source of Information: Reports: Patient History Limitations: Reports: No Limitations - History of Present Illness INITIAL COMMENTS - FREE TEXT/NARRATIVE: 52-year-old female presents for evaluation and treatment of fevers and abdominal cramps. Patient had a laproscopic hysterectomy with left oophorectomy done by Dr. Cheney on November 27. She states that the surgery went well. She had this done for endometrial hyperplasia. She has not yet seen Dr. Cheney in follow-up. She is scheduled to see him on December 11. She did not contact Dr. Cheney's office today regarding her problems. Patient reports today she experienced cramping to her lower abdomen and a burning sensation across her back. She states that she's been having "hot flashes". She has not taken her temperature at home. She reports associated symptoms of cough, diaphoresis, dizziness and nausea. No vomiting. She reports sharp pain and burning sensation to her back and cramping to her lower abdomen. She denies any vaginal bleeding. Reports increased urination. Patient reports she was not sent home with any pain medication. She does have tramadol at home and she did take 1 at 9:30 this morning. Patient reports chronic back pain. 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: Reports: Other (see below) Other 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: tramadol Lower Abdominal Pain Score (Numeric/FACES): 7 - Related Data Allergies Allergy/AdvReac Type Severity Reaction Status Date / Time No Known Allergies Allergy Verified 11/30/17 13:33 Home Meds: Home Meds Simvastatin [Zocor] 40 mg PO BEDTIME 12/26/16 [History] metFORMIN [Glucophage XR] 1,000 mg PO DAILY 12/26/16 [History] Gabapentin [Neurontin] 600 mg PO TID 10/02/17 [History] LORazepam [Ativan] 1 mg PO BID PRN 10/02/17 [History] Mometasone Furoate [Nasonex [place]] 2 spray STIVEN BID 10/02/17 [History] Multivitamins [Tab-A-Sita] 1 each PO DAILY 10/02/17 [History] Pantoprazole [ProTONIX] 40 mg PO DAILY 10/02/17 [History] amLODIPine [Norvasc] 10 mg PO DAILY 10/02/17 [History] tiZANidine [Zanaflex] 4 mg PO QID 10/02/17 [History] traMADol [Ultram] 100 mg PO TID PRN 10/02/17 [History] Aspirin [Adult Low Dose Aspirin EC] 81 mg PO DAILY 10/08/17 [History] FLUoxetine HCl [Fluoxetine HCl] 40 mg PO DAILY 11/26/17 [History] Triamcinolone Acetonide [Triamcinolone Acetonide 0.1% Crm] 1 dose TOP BID [History] Acetaminophen/HYDROcodone [[place] 325-5 MG] 1 tab PO Q6H PRN #10 tablet 11/30/17 [Rx] Past Medical History HEENT History: Reports: Allergic Rhinitis Cardiovascular History: Reports: High Cholesterol, Hypertension Respiratory History: Reports: COPD, Sleep Apnea Gastrointestinal History: Reports: GERD Genitourinary History: Reports: UTI, Recurrent AUDOGRAPH OPERATOR History: Reports: Ectopic , , Other (See Below) Other AUDOGRAPH OPERATOR History: thickened endometrium, post menopausal bleeding, endometrial hyperplasia, condyloma acuminatum, Right breast cyst drainage, , laparotomy Musculoskeletal History: Reports: Back Pain, Chronic Neurological History: Reports: Neuropathy, Diabetic, Neuropathy, Peripheral, Other (See Below) Other Neuro History: cerviclagia Psychiatric History: Reports: Anxiety, Depression Endocrine/Metabolic History: Reports: Diabetes, Type II Hematologic History: Reports: None Immunologic History: Reports: None Oncologic (Cancer) History: Reports: None Dermatologic History: Reports: Other (See Below) Other Dermatologic History: lipoma excision, contusion to face - Past Surgical History Head Surgeries/Procedures: Reports: None HEENT Surgical History: Reports: None Cardiovascular Surgical History: Reports: None GI Surgical History: Reports: Colonoscopy Female Surgical History: Reports: Tubal Ligation Endocrine Surgical History: Reports: None Musculoskeletal Surgical History: Reports: None Oncologic Surgical History: Reports: None Social & Family History - Tobacco Use Smoking Status *Q: Never Smoker - Caffeine Use Caffeine Use: Reports: Coffee, Energy Drinks, Soda ED ROS GENERAL - Review of Systems Review Of Systems: See Below Constitutional: Reports: Fever, Chills, Diaphoresis, Decreased Appetite Respiratory: Reports: Cough GI/Abdominal: Reports: Abdominal Pain (lower abdominal cramping), Constipation, Nausea. Denies: Vomiting Musculoskeletal: Reports: Back Pain (buring to the low back) ED EXAM, GI/ABD - Physical Exam Exam: See Below Exam Limited By: No Limitations General Appearance: Alert, WD/WN, No Apparent Distress, Obese Ears: Normal External Exam Nose: Normal Inspection Throat/Mouth: Normal Inspection, Normal Lips, Normal Voice, No Airway Compromise Respiratory/Chest: No Respiratory Distress, Lungs Clear, Normal Breath Sounds Cardiovascular: Normal Peripheral Pulses, Regular Rate, Rhythm, No Murmur GI/Abdominal Exam: Normal Bowel Sounds, Soft, Tender (lower abdomen minor tenderness to palation; surgical incisions closed with dermabond no erythema or drainage) Neurological: Alert, Oriented, Normal Cognition Psychiatric: Normal Affect, Normal Mood Skin Exam: Warm, Dry, Normal Color Course - Vital Signs Last Recorded V/S: Last Vital Signs Temp 97.7 F 11/30/17 13:33 Pulse 90 11/30/17 13:33 Resp 17 11/30/17 13:33 BP 146/89 H 11/30/17 13:33 Pulse Ox 98 11/30/17 13:33 - Orders/Labs/Meds Labs: Laboratory Tests 11/30/17 11/30/17 11/30/17 Range/Units 14:25 14:40 14:40 WBC 12.31 H (3.98-10.04) K/mm3 RBC 4.59 (3.98-5.22) M/mm3 Hgb 13.8 (11.2-15.7) gm/L Hct 41.6 (34.1-44.9) % MCV 90.6 (79.4-94.8) fl MCH 30.1 (25.6-32.2) pg MCHC 33.2 (32.2-35.5) g/dl RDW Std Deviation 41.9 (36.4-46.3) fL Plt Count 368 (182-369) K/mm3 MPV 9.1 L (9.4-12.3) fl Neutrophils % (Manual) 48 (40-60) % Band Neutrophils % 1 (0-10) % Lymphocytes % (Manual) 38 (20-40) % Atypical Lymphs % 0 % Monocytes % (Manual) 7 (2-10) % Eosinophils % (Manual) 6 H (0.7-5.8) % Basophils % (Manual) 0 L (0.1-1.2) Platelet Estimate Adequate RBC Morph Comment Normal Sodium 138 (136-145) mEq/L Potassium 3.5 (3.5-5.1) mEq/L Chloride 101 (98-107) mEq/L Carbon Dioxide 27 (21-32) mEq/L Anion Gap 13.5 (5-15) BUN 8 (7-18) mg/dL Creatinine 0.8 (0.55-1.02) mg/dL Est Cr Clr Drug Dosing 71.84 mL/min Estimated GFR (MDRD) > 60 (>60) mL/min BUN/Creatinine Ratio 10.0 L (14-18) Glucose 131 H (74-106) mg/dL Calcium 9.1 (8.5-10.1) mg/dL Total Bilirubin 0.2 (0.2-1.0) mg/dL AST 19 (15-37) U/L ALT 16 (14-59) U/L Alkaline Phosphatase 154 H (46-116) U/L C-Reactive Protein 0.9 (<1.0) mg/dL Total Protein 7.8 (6.4-8.2) g/dl Albumin 3.7 (3.4-5.0) g/dl Globulin 4.1 gm/dL Albumin/Globulin Ratio 0.9 L (1-2) Urine Color Yellow (Yellow) Urine Appearance Clear (Clear) Urine pH 7.0 (5.0-8.0) Ur Specific [place] 1.015 (1.005-1.030) Urine Protein Trace H (Negative) Urine Glucose (UA) Negative (Negative) Urine Ketones Negative (Negative) Urine Occult Blood Trace-intact H (Negative) Urine Nitrite Negative (Negative) Urine Bilirubin Negative (Negative) Urine Urobilinogen 0.2 (0.2-1.0) Ur Leukocyte Esterase Negative (Negative) Urine RBC 0-5 (0-5) /hpf Urine WBC 0-5 (0-5) /hpf Ur Epithelial Cells 5-10 H (0-5) /hpf Urine Bacteria Rare (FEW) /hpf Hyaline Casts 0-5 (0-5) /lpf Urine Mucus Few (FEW) /hpf Meds: Medications Discontinued Medications Generic Name Dose Route Start Last Admin Trade Name Freq PRN Reason Stop Dose Admin Hydromorphone HCl 0.5 mg 11/30/17 14:07 11/30/17 14:43 Dilaudid IVPUSH 11/30/17 14:08 0.5 mg ONETIME ONE Administration Hydromorphone HCl 0.5 mg 11/30/17 15:21 11/30/17 15:41 Dilaudid IVPUSH 11/30/17 15:22 0.5 mg ONETIME ONE Administration Hydromorphone HCl 0.5 mg 11/30/17 17:02 11/30/17 17:38 Dilaudid IVPUSH 11/30/17 17:03 0.5 mg ONETIME ONE Administration Iopamidol 100 ml 11/30/17 16:07 11/30/17 16:21 Isovue-300 (61%) IVPUSH 11/30/17 16:08 100 ml ONETIME ONE Administration Ondansetron HCl 4 mg 11/30/17 14:07 11/30/17 14:47 Zofran IVPUSH 11/30/17 14:08 4 mg ONETIME ONE Administration Sodium Chloride 10 ml 11/30/17 14:04 11/30/17 14:47 Saline Flush FLUSH 10 ml ASDIRECTED PRN Administration Keep Vein Open Sodium Chloride 10 ml 11/30/17 16:07 11/30/17 16:21 Saline Flush FLUSH 11/30/17 16:08 10 ml ONETIME ONE Administration - Radiology Interpretation Free Text/Narrative:: Chest: Two views of the chest were obtained. Comparison: Previous chest x-ray of 05/10/17. Heart size and mediastinum are normal. Lungs are clear. Bony structures are unremarkable. Impression: 1. Nothing acute is seen on two-view chest x-ray. Abdomen: Supine and upright views of the abdomen were obtained. Comparison: Prior abdominal x-ray of 10/02/17. Slight increased stool is seen throughout the colon. Bony structures are unremarkable. Calcifications are seen within the pelvis compatible with phleboliths. No free air is seen. No soft tissue abnormality is seen. Impression: 1. Slight increased stool within the colon. Other incidental findings. CT of the abdomen and pelvis with IV contrast impression per [facility]: small amount of free fluid noted within the pelvis. Postoperative changes. - Re-Assessments/Exams Free Text/Narrative Re-Assessment/Exam: 11/30/17 17:39 Discussed the case with Dr. Cheney. Did not feel there was anything emergent. Recommend follow-up as planned, sooner if symptoms persist. Patient may be drug seeking. Discussed labs and imaging with the patient. Will discharge home. I will give her a few tabs of pain medication for her pain as she did just recently have surgery . Discharge instructions as documented. Departure - Departure Time of Disposition: 17:46 Disposition: Home, Self-Care 01 Condition: Fair Clinical Impression: Post-operative pain - Discharge Information *PRESCRIPTION DRUG MONITORING PROGRAM REVIEWED*: Yes *COPY OF PRESCRIPTION DRUG MONITORING REPORT IN PATIENT MEAGAN: No Prescriptions: Acetaminophen/HYDROcodone [[place] 325-5 MG] 1 tab PO Q6H PRN #10 tablet PRN Reason: Pain Referrals: Louisa Mohamud NP [Primary Care Provider] - Forms: ED Department Discharge Additional Instructions: you were Given medication in the ER that cab affect your ability to drive and operate machinery. Do not drive or operate machinery within 10 hours of taking prescription narcotic pain medication. [id number] Motrin, 600 mg every 6 hours as needed for pain. May take tylenol as well. Do not take more than 4 g of Tylenol from all sources in 1 day. There is Tylenol in [place]. For pain not relieved by Motrin may take [place] one tablet every 6 hours. [place] is habit-forming, take as few these as needed to control your pain. Do not drive or machinery within 10 hours of taking [place]. Follow-up with Dr. Cheney as planned. see him earlier if you continue to have symptoms. Please return to the ER if your symptoms change or worsen.
--- NOTE | 2017-11-30 16:02 | CR ---
Abdomen: Supine and upright views of the abdomen were obtained. Comparison: Prior abdominal x-ray of 10/02/17. Slight increased stool is seen throughout the colon. Bony structures are unremarkable. Calcifications are seen within the pelvis compatible with phleboliths. No free air is seen. No soft tissue abnormality is seen. Impression: 1. Slight increased stool within the colon. Other incidental findings. Diagnostic code #2
--- NOTE | 2017-11-30 16:02 | CR ---
Chest: Two views of the chest were obtained. Comparison: Previous chest x-ray of 05/10/17. Heart size and mediastinum are normal. Lungs are clear. Bony structures are unremarkable. Impression: 1. Nothing acute is seen on two-view chest x-ray. Diagnostic code #1
[2017-11-30] MEDS ORDERED: Iopamidol 612 MG/ML 100 ML Bottle IVPUSH ONE (16:07)
[2017-11-30] MEDS ORDERED: Sodium Chloride 0.9% 10 ML Syringe FLUSH ONE (16:07)
--- NOTE | 2017-12-03 19:40 | CT ---
CT abdomen and pelvis Technique: Multiple axial sections were obtained from above the dome of the diaphragm inferiorly through the pubic symphysis. Intravenous contrast was utilized. No oral contrast has been given. Delayed images were obtained through the bladder. Comparison: Prior CT abdomen and pelvis exam of 11/07/17 is available. Findings: Visualized lung bases show nothing acute. Questionable fatty infiltration within the liver. Spleen appears within normal limits. Small hiatal hernia again noted. Adrenal glands show no nodule. Pancreas is within normal limits. Gallbladder contains no calcified gallstones. Kidneys show symmetric contrast enhancement without hydronephrosis or mass. Aorta shows no aneurysmal dilatation. No retroperitoneal adenopathy is seen. Appendix is seen and is normal. Prior hysterectomy is noted. Slight increased density is noted within the pelvis which likely is due to postoperative change from prior hysterectomy. Minimal fluid also seen within the pelvis believed to be postoperative in etiology. No additional abnormality is seen. Delayed images show contrast within the distal ureters and within the bladder. Bone window settings were reviewed which show degenerative apophyseal changes at L4-L5 and vacuum disc phenomenon at L5-S1. Impression: 1. Slight findings within the pelvis believed to represent postoperative change from recent hysterectomy. 2. Incidental findings as noted above. Nothing acute is seen. Diagnostic code #2 I agree with preliminary report issued by [facility] ([facility] report finalized on 11/30/17, 6:14 PM Central Time)
== END 2017-11-30 18:04 | disposition home or self-care (01) ==
LOC: JD.ED 13:16
DX: G89.18 Other acute postprocedural pain (principal); Z90.710 Acquired absence of both cervix and uterus; Z90.721 Acquired absence of ovaries, unilateral; Z79.82 Long term (current) use of aspirin; Z79.84 Long term (current) use of oral hypoglycemic drugs; Z79.899 Other long term (current) drug therapy; I10 Essential (primary) hypertension; E11.40 Type 2 diabetes mellitus with diabetic neuropathy, unspecified
CPT/HCPCS: 36415; 71046; 74019; 74177; 80053; 81001; 85007; 85027; 86140; 96374; 96375; 96376; 99285; J1170; J2405; J7050; Q9967; 99284

== ENCOUNTER 2018-06-14 20:39 | Emergency (ER) | payer BC, MEDICAID ==
--- NOTE | 2018-06-14 20:55 | EDM.PDOC ---
ED HPI GENERAL MEDICAL PROBLEM - General Chief Complaint: Lower Extremity Injury/Pain Stated Complaint: FELL ON ICE Time Seen by Provider: 06/14/18 20:54 Source of Information: Reports: Patient - History of Present Illness INITIAL COMMENTS - FREE TEXT/NARRATIVE: Patient is here for evaluation of left upper leg pain after a fall on the ice and occurred approximately 8 PM this evening. Patient states that [place] [facility], she slipped on the ice and fell landing on her left hip and leg. She states that she was able to get up and walk after this. Had significant pain so drove herself over to the emergency department. She is able to bear weight but has significant pain with this. No previous history of pain with pelvis or femur. Patient does have a history of chronic pain, she has on gabapentin and tramadol and tizanidine on a regular basis. Has not taken these since 5 AM this morning. She reports taking Tylenol prior to going to the gym this evening. PCP is Louisa Mohamud NP. Patient reports being allergic to clindamycin. Also gets hives with ketorolac. Left Upper Leg Pain Score (Numeric/FACES): 8 - Related Data Allergies Allergy/AdvReac Type Severity Reaction Status Date / Time clindamycin Allergy Hives Verified 06/14/18 20:53 Home Meds: Home Meds Simvastatin [Zocor] 40 mg PO BEDTIME 12/26/16 [History] metFORMIN [Glucophage XR] 1,000 mg PO DAILY 12/26/16 [History] Gabapentin [Neurontin] 600 mg PO TID 10/02/17 [History] Mometasone Furoate [Nasonex [place]] 2 spray STIVEN BID 10/02/17 [History] Multivitamins [Tab-A-Sita] 1 each PO DAILY 10/02/17 [History] Pantoprazole [ProTONIX] 40 mg PO DAILY 10/02/17 [History] amLODIPine [Norvasc] 10 mg PO DAILY 10/02/17 [History] tiZANidine [Zanaflex] 4 mg PO QID 10/02/17 [History] traMADol [Ultram] 100 mg PO TID PRN 10/02/17 [History] FLUoxetine HCl [Fluoxetine HCl] 40 mg PO DAILY 11/26/17 [History] ALPRAZolam [Xanax] 1 mg PO TID PRN 06/14/18 [History] Past Medical History HEENT History: Reports: Allergic Rhinitis Cardiovascular History: Reports: High Cholesterol, Hypertension Respiratory History: Reports: COPD, Sleep Apnea Gastrointestinal History: Reports: GERD Genitourinary History: Reports: UTI, Recurrent 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 , , Other (See Below) Other ASSISTANT MERCHANDISE MANAGER History: thickened endometrium, post menopausal bleeding, endometrial hyperplasia, condyloma acuminatum, Right breast cyst drainage, , laparotomy Musculoskeletal History: Reports: Back Pain, Chronic Neurological History: Reports: Neuropathy, Diabetic, Neuropathy, Peripheral, Other (See Below) Other Neuro History: cerviclagia Psychiatric History: Reports: Anxiety, Depression Endocrine/Metabolic History: Reports: Diabetes, Type II Hematologic History: Reports: None Immunologic History: Reports: None Oncologic (Cancer) History: Reports: None Dermatologic History: Reports: Other (See Below) Other Dermatologic History: lipoma excision, contusion to face - Past Surgical History Head Surgeries/Procedures: Reports: None HEENT Surgical History: Reports: None Cardiovascular Surgical History: Reports: None GI Surgical History: Reports: Colonoscopy Female Surgical History: Reports: Tubal Ligation Endocrine Surgical History: Reports: None Musculoskeletal Surgical History: Reports: None Oncologic Surgical History: Reports: None Social & Family History - Caffeine Use Caffeine Use: Reports: Coffee, Energy Drinks, Soda Review of Systems - Review of Systems Review Of Systems: See Below Constitutional: Reports: No Symptoms Respiratory: Reports: No Symptoms Cardiovascular: Reports: No Symptoms Musculoskeletal: Reports: Other (Pain to left hip and leg.) Skin: Reports: No Symptoms Neurological: Denies: Paresthesia, Tingling, Weakness ED EXAM, GENERAL - Physical Exam Exam: See Below General Appearance: Alert, WD/WN, Mild Distress Respiratory/Chest: No Respiratory Distress, Lungs Clear, Normal Breath Sounds Cardiovascular: Regular Rate, Rhythm, No Murmur Peripheral Pulses: 2+: Posterior Tibial (L) Extremities: Normal Inspection, Other (Left hip without ecchymosis. Posterior swelling to mid thigh. Left hip with painful range of motion, decrease in range of flexion or extension due to pain. Knee exam normal.) Neurological: Alert, Oriented Psychiatric: Normal Affect, Normal Mood Skin Exam: Warm, Dry, Intact. No: Ecchymosis Course - Vital Signs Last Recorded V/S: Last Vital Signs Temp 97.7 F 06/14/18 20:58 Pulse 76 06/14/18 20:58 Resp 20 06/14/18 20:58 BP 131/54 L 06/14/18 20:58 Pulse Ox 100 06/14/18 20:58 - Orders/Labs/Meds Orders: Active Orders 24 hr Category Date Time Status Femur Min 2V Lt [CR] Stat Exams 06/14/18 21:07 Taken Pelvis 1V or 2V [CR] Stat Exams 06/14/18 21:07 Taken Meds: Medications Discontinued Medications Generic Name Dose Route Start Last Admin Trade Name [place] PRN Reason Stop Dose Admin Hydrocodone Bitart/Acetaminophen 1 tab 06/14/18 21:07 06/14/18 21:10 [place] 325-5 Mg PO 06/14/18 21:08 1 tab ONETIME ONE Administration - Re-Assessments/Exams Free Text/Narrative Re-Assessment/Exam: Patient reports being in a fair amount of pain, her son is coming to get her. Will give her one [place]. Obtain x-ray of pelvis and left femur. 06/14/18 21:09 Xray demonstrates no acute fracture. Recommend activity as tolerated. Ibuprofen and Tylenol as needed for pain. She may take tramadol as prescribed by her PCP for breakthrough pain. Ice 15 minutes every 1-2 hours. She'll follow-up with her PCP if pain persists, return to the emergency department for new or worsening symptoms. 06/14/18 21:49 Departure - Departure Time of Disposition: 21:50 Disposition: Home, Self-Care 01 Condition: Good (Left leg pain) Clinical Impression: Leg pain, left Fall from slipping on ice Qualifiers: Encounter type: initial encounter Qualified Code(s): W00.9XXA - Unspecified fall due to ice and snow, initial encounter - Discharge Information *PRESCRIPTION DRUG MONITORING PROGRAM REVIEWED*: Yes *COPY OF PRESCRIPTION DRUG MONITORING REPORT IN PATIENT MEAGAN: Yes Instructions: Contusion Referrals: Louisa Mohamud NP [Primary Care Provider] - Forms: ED Department Discharge Additional Instructions: You were evaluated in the emergency department today for an injury to her left hip and leg after falling on the ice. I recommend that you take it easy the next few days, activity as tolerated. Ice 15 minutes every 1-2 hours. Take Tylenol or ibuprofen as needed for the pain. If pain flares, you can take the tramadol you have prescribed by your primary provider. Follow-up with your primary provider if pain not resolved by next week or return to the emergency department for any new or worsening symptoms. - My Orders Last 24 Hours: My Active Orders 06/14/18 21:07 Femur Min 2V Lt [CR] Stat Pelvis 1V or 2V [CR] Stat - Assessment/Plan Last 24 Hours: My Active Orders 06/14/18 21:07 Femur Min 2V Lt [CR] Stat Pelvis 1V or 2V [CR] Stat
[2018-06-14 21:00] VITALS: BP 131/54
[2018-06-14] MEDS ORDERED: Acetaminophen/HYDROcodone 325-5 MG Tab PO ONE (21:07)
--- NOTE | 2018-06-15 15:18 | CR ---
Pelvis: AP view of the pelvis was obtained. Comparison: No prior pelvic x-ray. Joint spaces within both hips are maintained. Sacroiliac joints are within normal limits. No fracture or other bony abnormality is seen. Impression: 1. No abnormality is identified on AP pelvis exam. Diagnostic code #1
--- NOTE | 2018-06-15 15:18 | CR ---
Left femur: AP and lateral views of the left femur were obtained. Comparison: No prior femur study. Joint space within the left hip is maintained. Joint spaces within the knee are maintained. No fracture or other bony abnormality is identified. Impression: 1. No abnormality is identified on left femur exam. Diagnostic code #1
== END 2018-06-14 22:36 | disposition home or self-care (01) ==
LOC: JD.ED 20:39
DX: M79.605 Pain in left leg (principal); I10 Essential (primary) hypertension; E78.00 Pure hypercholesterolemia, unspecified; E11.40 Type 2 diabetes mellitus with diabetic neuropathy, unspecified; F41.9 Anxiety disorder, unspecified; F32.9 Major depressive disorder, single episode, unspecified; Z79.899 Other long term (current) drug therapy; Z79.84 Long term (current) use of oral hypoglycemic drugs; W00.9XXA Unspecified fall due to ice and snow, initial encounter
CPT/HCPCS: 72170; 73552; 99283; A9270

== ENCOUNTER 2018-09-30 17:52 | Emergency (ER) | payer BC ==
[2018-09-30 18:01] VITALS: BP 148/89
--- NOTE | 2018-09-30 18:03 | EDM.PDOC ---
ED HPI GENERAL MEDICAL PROBLEM - General Chief Complaint: Back Pain or Injury Stated Complaint: BACK PAIN Time Seen by Provider: 09/30/18 18:02 - History of Present Illness INITIAL COMMENTS - FREE TEXT/NARRATIVE: 53-year-old female presents emergency room with back pain. This pain is been an ongoing problem for her she's been seeing a regular provider who is anticipating started getting physical therapy in the near future and they're contemplating checking an MRI as she has what sounds like radicular symptoms in her left lower extremity at times. Patient denies any burning or frequency with urination. As stated above she gets intermittent times where she has pain that shoots down into her left foot. The most the time her pain is localized around her posterior upper thigh and Buttox and into her back. At home she's been using ibuprofen and Zanaflex and at times she uses hydrocodone she states she is not seeking a new prescriptions to take home. Back pain seems to have occurred after several falls this winter in earlier this spring she's been evaluated and has had x-rays since the time of her last fall. She's had no recent trauma from a fall or any other causes over the last couple months. During this time and at present the patient has not had any loss of bowel or bladder control - Related Data Allergies Allergy/AdvReac Type Severity Reaction Status Date / Time clindamycin Allergy Hives Verified 06/14/18 20:53 Home Meds: Home Meds Simvastatin [Zocor] 40 mg PO BEDTIME 12/26/16 [History] metFORMIN [Glucophage XR] 1,000 mg PO DAILY 12/26/16 [History] Gabapentin [Neurontin] 600 mg PO TID 10/02/17 [History] Mometasone Furoate [Nasonex [place]] 2 spray STIVEN BID 10/02/17 [History] Multivitamins [Tab-A-Sita] 1 each PO DAILY 10/02/17 [History] Pantoprazole [ProTONIX] 40 mg PO DAILY 10/02/17 [History] amLODIPine [Norvasc] 10 mg PO DAILY 10/02/17 [History] tiZANidine [Zanaflex] 4 mg PO QID 10/02/17 [History] traMADol [Ultram] 100 mg PO TID PRN 10/02/17 [History] FLUoxetine HCl [Fluoxetine HCl] 40 mg PO DAILY 11/26/17 [History] ALPRAZolam [Xanax] 1 mg PO TID PRN 06/14/18 [History] Acetaminophen/HYDROcodone [[place] 325-5 MG] 1 tab PO Q6H PRN 09/30/18 [History] Past Medical History HEENT History: Reports: Allergic Rhinitis Cardiovascular History: Reports: High Cholesterol, Hypertension Respiratory History: Reports: COPD, Sleep Apnea Gastrointestinal History: Reports: GERD Genitourinary History: Reports: UTI, Recurrent 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 , , Other (See Below) Other 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 SCREWHEAD POLISHER History: thickened endometrium, post menopausal bleeding, endometrial hyperplasia, condyloma acuminatum, Right breast cyst drainage, , laparotomy Musculoskeletal History: Reports: Back Pain, Chronic Neurological History: Reports: Neuropathy, Diabetic, Neuropathy, Peripheral, Other (See Below) Other Neuro History: cerviclagia Psychiatric History: Reports: Anxiety, Depression Endocrine/Metabolic History: Reports: Diabetes, Type II Hematologic History: Reports: None Immunologic History: Reports: None Oncologic (Cancer) History: Reports: None Dermatologic History: Reports: Other (See Below) Other Dermatologic History: lipoma excision, contusion to face - Past Surgical History Head Surgeries/Procedures: Reports: None HEENT Surgical History: Reports: None Cardiovascular Surgical History: Reports: None GI Surgical History: Reports: Colonoscopy Female Surgical History: Reports: Tubal Ligation Endocrine Surgical History: Reports: None Musculoskeletal Surgical History: Reports: None Oncologic Surgical History: Reports: None Social & Family History - Caffeine Use Caffeine Use: Reports: Coffee, Energy Drinks, Soda ED ROS GENERAL - Review of Systems Review Of Systems: See Below Constitutional: Reports: No Symptoms Respiratory: Reports: No Symptoms Cardiovascular: Reports: No Symptoms GI/Abdominal: Reports: No Symptoms : Reports: No Symptoms Musculoskeletal: Reports: Back Pain, Leg Pain Skin: Reports: No Symptoms Neurological: Reports: Other (Intermittent pain into the left leg and foot) Psychiatric: Reports: No Symptoms ED EXAM,LOWER BACK PAIN/INJURY - Physical Exam Exam: See Below Exam Limited By: No Limitations General Appearance: Alert, No Apparent Distress Respiratory/Chest: No Respiratory Distress, Lungs Clear, Normal Breath Sounds Cardiovascular: Regular Rate, Rhythm, No Edema, No Murmur GI/Abdominal: Normal Bowel Sounds, Soft, Non-Tender Back Exam: Normal Inspection, CVA Tenderness (L), CVA Tenderness (R), Other ( Some spasm on the left lumbar area into the buttocks. Distracted straight leg raises are positive with muscle tightness in the buttocks no pain below the knee with this.). No: Vertebral Tenderness Extremities: Normal Inspection, Normal Range of Motion, Non-Tender, No Pedal Edema Course - Vital Signs Last Recorded V/S: Last Vital Signs Temp 36.8 C 09/30/18 17:58 Pulse 81 09/30/18 17:58 Resp 19 09/30/18 17:58 BP 148/89 H 09/30/18 17:58 Pulse Ox 96 09/30/18 17:58 - Orders/Labs/Meds Meds: Medications Discontinued Medications Generic Name Dose Route Start Last Admin Trade Name Gill PRN Reason Stop Dose Admin Morphine Sulfate 6 mg 09/30/18 18:15 09/30/18 18:45 Morphine IM 09/30/18 18:16 Not Given ONETIME ONE Morphine Sulfate 6 mg 09/30/18 18:42 09/30/18 18:45 Morphine IM 09/30/18 18:43 6 mg ONETIME ONE Administration Morphine Sulfate Confirm 09/30/18 18:42 09/30/18 18:45 Morphine Administered 09/30/18 18:43 Not Given Dose 8 mg IV .STK-MED ONE - Re-Assessments/Exams Free Text/Narrative Re-Assessment/Exam: 09/30/18 19:46 Patient will continue her Zanaflex ibuprofen in the [place] as needed. Here in the emergency room she was given 6 mg of IM morphine and felt much better she was observed for some time and remained stable on this dose. Departure - Departure Time of Disposition: 19:47 Disposition: Home, Self-Care 01 Clinical Impression: Low back pain - Discharge Information Referrals: Louisa Mohamud NP [Primary Care Provider] - Forms: ED Department Discharge, ED Return to Work/School Form Additional Instructions: Return to the emergency room with any questions problems worsening symptoms. You received some morphine in the emergency department do not drive this evening I understand you have a ride to take home. Do not take your Zanaflex or hydrocodone for the next 8 hours. Follow-up with your regular provider as scheduled
[2018-09-30] MEDS ORDERED: Morphine 10 MG/ML Syringe IM ONE (18:15)
[2018-09-30] MEDS ORDERED: Morphine 4 MG/ML Syringe IM ONE (18:42)
== END 2018-09-30 20:00 | disposition home or self-care (01) ==
LOC: JD.ED 17:52
DX: M54.5 Low back pain (principal); I10 Essential (primary) hypertension; E78.00 Pure hypercholesterolemia, unspecified; J44.9 Chronic obstructive pulmonary disease, unspecified; K21.9 Gastro-esophageal reflux disease without esophagitis; F41.9 Anxiety disorder, unspecified; F32.9 Major depressive disorder, single episode, unspecified; E11.40 Type 2 diabetes mellitus with diabetic neuropathy, unspecified; Z79.899 Other long term (current) drug therapy; Z79.84 Long term (current) use of oral hypoglycemic drugs; Z88.1 Allergy status to other antibiotic agents
CPT/HCPCS: 96372; 99283; J2270

== ENCOUNTER 2018-11-25 16:00 | Emergency (ER) | payer BC ==
[2018-11-25 16:29] VITALS: BP 140/83
[2018-11-25] MEDS ORDERED: Acetaminophen/oxyCODONE 325-5 MG Tab PO ONE ×2 (17:17→18:36)
[2018-11-25] MEDS ORDERED: Ondansetron 4 MG Tab.DIS PO ONE (17:17)
[2018-11-25] MEDS ORDERED: predniSONE 20 MG Tab PO ONE (17:18)
[2018-11-25] MEDS ORDERED: HYDROmorphone 0.5 MG/0.5 ML Syringe IM ONE (19:35)
--- NOTE | 2018-11-25 19:40 | EDM.PDOC ---
ED HPI GENERAL MEDICAL PROBLEM - General Chief Complaint: Lower Extremity Injury/Pain Stated Complaint: POSSIBLE SHINGLES Time Seen by Provider: 11/25/18 16:50 Source of Information: Reports: Patient History Limitations: Reports: No Limitations - History of Present Illness INITIAL COMMENTS - FREE TEXT/NARRATIVE: 53-year-old female presents for evaluation and treatment of a rash the bilateral ankles. Appreciated it today while she was at work. She was wearing steel toed at 12 work. She states that it started around her right ankle but she now appreciated it around her left ankle. She questions if this is shingles , states she's had shingles in the past. She reports associated symptoms of headache, chills, nausea and diarrhea. States that she had a chest cold recently but the symptoms have mostly resolved. She denies any vomiting or any blood in her stool. She had 3 episodes of diarrhea today. She states that the pain as a sharp stabbing burning pain. Primary care provider is Marisa Mohamud. 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: Other Medication(s) Other Treatments SUPER[employer]OR [employer]ESSING: benadryl Bilateral Leg Pain Score (Numeric/FACES): 8 - Related Data Allergies Allergy/AdvReac Type Severity Reaction Status Date / Time clindamycin Allergy Hives Verified 11/25/18 16:30 Home Meds: Home Meds Simvastatin [Zocor] 40 mg PO BEDTIME 12/26/16 [History] metFORMIN [Glucophage XR] 1,000 mg PO DAILY 12/26/16 [History] Gabapentin [Neurontin] 600 mg PO TID 10/02/17 [History] Mometasone Furoate [Nasonex [employer]] 2 spray STIVEN BID 10/02/17 [History] Multivitamins [Tab-A-Sita] 1 each PO DAILY 10/02/17 [History] Pantoprazole [ProTONIX] 40 mg PO DAILY 10/02/17 [History] amLODIPine [Norvasc] 10 mg PO DAILY 10/02/17 [History] tiZANidine [Zanaflex] 4 mg PO BEDTIME 10/02/17 [History] traMADol [Ultram] 100 mg PO BID 10/02/17 [History] FLUoxetine HCl [Fluoxetine HCl] 40 mg PO DAILY 11/26/17 [History] ALPRAZolam [Xanax] 1 mg PO BID PRN 06/14/18 [History] Acetaminophen/HYDROcodone [[place] 325-5 MG] 1 tab PO Q6H PRN 09/30/18 [History] Acetaminophen/HYDROcodone [[place] 325-5 MG] 1 tab PO Q6H PRN #12 tablet 11/25/18 [Rx] predniSONE [Prednisone] 40 mg PO DAILY #10 tablet 11/25/18 [Rx] Past Medical History HEENT History: Reports: Allergic Rhinitis Cardiovascular History: Reports: High Cholesterol, Hypertension Respiratory History: Reports: COPD, Sleep Apnea Gastrointestinal History: Reports: GERD Genitourinary History: Reports: UTI, Recurrent 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 , , Other (See Below) Other PARTY SUPPLY SPECIALIST History: thickened endometrium, post menopausal bleeding, endometrial hyperplasia, condyloma acuminatum, Right breast cyst drainage, , laparotomy Musculoskeletal History: Reports: Back Pain, Chronic Neurological History: Reports: Neuropathy, Diabetic, Neuropathy, Peripheral, Other (See Below) Other Neuro History: cerviclagia Psychiatric History: Reports: Anxiety, Depression Endocrine/Metabolic History: Reports: Diabetes, Type II Hematologic History: Reports: None Immunologic History: Reports: None Oncologic (Cancer) History: Reports: None Dermatologic History: Reports: Other (See Below) Other Dermatologic History: lipoma excision, contusion to face - Past Surgical History Head Surgeries/Procedures: Reports: None HEENT Surgical History: Reports: None Cardiovascular Surgical History: Reports: None GI Surgical History: Reports: Colonoscopy Female Surgical History: Reports: Tubal Ligation Endocrine Surgical History: Reports: None Musculoskeletal Surgical History: Reports: None Oncologic Surgical History: Reports: None Social & Family History - Family History Family Medical History: Noncontributory - Tobacco Use Smoking Status *Q: Current Status Unknown - Caffeine Use Caffeine Use: Reports: Coffee, Soda - Living Situation & Occupation Living situation: Reports: Occupation: Employed Review of Systems - Review of Systems Review Of Systems: See Below Constitutional: Reports: Chills. Denies: Fever GI/Abdominal: Reports: Diarrhea, Nausea. Denies: Bloody Stool, Vomiting Skin: Reports: Rash (bilateral ankles). Denies: Pruritis ED EXAM, GENERAL - Physical Exam Exam: See Below Exam Limited By: No Limitations General Appearance: Alert, WD/WN, No Apparent Distress, Obese Nose: Normal Inspection Throat/Mouth: Normal Inspection, Normal Lips, Normal Voice, No Airway Compromise Respiratory/Chest: No Respiratory Distress, Lungs Clear, Normal Breath Sounds Cardiovascular: Normal Peripheral Pulses, Regular Rate, Rhythm, No Murmur Neurological: Alert, Oriented, Normal Cognition Psychiatric: Normal Affect, Normal Mood Skin Exam: Warm, Dry, Normal Color, Rash (bilateral ankles circumferencial, nonblanching, no blisters, no bruising) Course - Vital Signs Last Recorded V/S: Last Vital Signs Temp 97.4 F 11/25/18 16:26 Pulse 95 11/25/18 16:26 Resp 16 11/25/18 16:26 BP 140/83 11/25/18 16:26 Pulse Ox 94 L 11/25/18 16:26 - Orders/Labs/Meds Labs: Laboratory Tests 11/25/18 11/25/18 Range/Units 17:52 17:52 WBC 11.96 H (3.98-10.04) K/mm3 RBC 4.57 (3.98-5.22) M/mm3 Hgb 14.0 (11.2-15.7) gm/L Hct 41.3 (34.1-44.9) % MCV 90.4 (79.4-94.8) fl MCH 30.6 (25.6-32.2) pg MCHC 33.9 (32.2-35.5) g/dl RDW Std Deviation 44.6 (36.4-46.3) fL Plt Count 341 (182-369) K/mm3 MPV 8.8 L (9.4-12.3) fl Neutrophils % (Manual) 65 H (40-60) % Band Neutrophils % 0 (0-10) % Lymphocytes % (Manual) 24 (20-40) % Atypical Lymphs % 0 % Monocytes % (Manual) 6 (2-10) % Eosinophils % (Manual) 5 (0.7-5.8) % Basophils % (Manual) 0 L (0.1-1.2) Platelet Estimate Adequate RBC Morph Comment Normal Sodium 142 (136-145) mEq/L Potassium 3.6 (3.5-5.1) mEq/L Chloride 105 (98-107) mEq/L Carbon Dioxide 26 (21-32) mEq/L Anion Gap 14.6 (5-15) BUN 6 L (7-18) mg/dL Creatinine 0.7 (0.55-1.02) mg/dL Est Cr Clr Drug Dosing 81.18 mL/min Estimated GFR (MDRD) > 60 (>60) mL/min BUN/Creatinine Ratio 8.6 L (14-18) Glucose 112 H (74-106) mg/dL Calcium 9.2 (8.5-10.1) mg/dL Total Bilirubin 0.2 (0.2-1.0) mg/dL AST 21 (15-37) U/L ALT 26 (14-59) U/L Alkaline Phosphatase 204 H (46-116) U/L C-Reactive Protein 0.4 (<1.0) mg/dL Total Protein 8.3 H (6.4-8.2) g/dl Albumin 3.9 (3.4-5.0) g/dl Globulin 4.4 gm/dL Albumin/Globulin Ratio 0.9 L (1-2) Meds: Medications Discontinued Medications Generic Name Dose Route Start Last Admin Trade Name Freq PRN Reason Stop Dose Admin Hydromorphone HCl 0.5 mg 11/25/18 19:35 11/25/18 19:50 Dilaudid IM 11/25/18 19:36 0.5 mg ONETIME ONE Administration Ondansetron HCl 4 mg 11/25/18 17:17 11/25/18 17:31 Zofran Odt PO 11/25/18 17:18 4 mg ONETIME ONE Administration Oxycodone/Acetaminophen 1 tab 11/25/18 17:17 11/25/18 17:53 Percocet 325-5 Mg PO 11/25/18 17:18 1 tab ONETIME ONE Administration Oxycodone/Acetaminophen 1 tab 11/25/18 18:36 11/25/18 18:54 Percocet 325-5 Mg PO 11/25/18 18:37 1 tab ONETIME ONE Administration Prednisone 40 mg 11/26/18 17:18 Prednisone PO 11/26/18 17:19 ONETIME ONE Prednisone 40 mg 11/26/18 07:00 Prednisone PO WITHBREAKFAST AP Prednisone 40 mg 11/25/18 17:18 11/25/18 17:53 Prednisone PO 11/25/18 17:19 40 mg ONETIME ONE Administration - Re-Assessments/Exams Free Text/Narrative Re-Assessment/Exam: 11/25/18 19:35 Rash is not consistent with shingles. Rash is on both ankles. No blisters. However, it is painful. Appears to be a vasculitis. Likely caused by a virus. Reviewed labs with the patient. Will discharge home at this time. Discharge instructions as documented. Departure - Departure Time of Disposition: 19:36 Disposition: Home, Self-Care 01 Condition: Fair Clinical Impression: Viral exanthem, Vasculitis - Discharge Information *PRESCRIPTION DRUG MONITORING PROGRAM REVIEWED*: Yes *COPY OF PRESCRIPTION DRUG MONITORING REPORT IN PATIENT MEAGAN: No Prescriptions: Acetaminophen/HYDROcodone [[place] 325-5 MG] 1 tab PO Q6H PRN #12 tablet PRN Reason: Pain predniSONE [Prednisone] 40 mg PO DAILY #10 tablet Instructions: Vasculitis Referrals: Jesse Grissom MD [Primary Care Provider] - Louisa Mohamud NP [Ordering Only Provider] - Forms: ED Department Discharge Additional Instructions: you were given medication in the ER that can affect your ability to drive and operate machinery. Do not drive or operate machinery within 10 hours of taking prescription narcotic pain medication. Follow-up with PCP Sunday as planned. Prednisone 40mg or 2 tabs PO daily x 5 days. Start this tomorrow. norco 1 tab PO every 6 hors prn pain. [place] is habit forming, take as few of these as needed to control your pain. Do not drive or operate machinery within 10 hours of taking norco. Please return to the er should your symptoms change or worsen.
[2018-11-26] MEDS ORDERED: predniSONE 20 MG Tab PO SCH (07:00)
[2018-11-26] MEDS ORDERED: predniSONE 20 MG Tab PO ONE (17:18)
== END 2018-11-25 20:10 | disposition home or self-care (01) ==
LOC: JD.ED 16:00
DX: B09 Unspecified viral infection characterized by skin and mucous membrane lesions (principal); I77.6 Arteritis, unspecified; I10 Essential (primary) hypertension; J44.9 Chronic obstructive pulmonary disease, unspecified; K21.9 Gastro-esophageal reflux disease without esophagitis; E11.40 Type 2 diabetes mellitus with diabetic neuropathy, unspecified; F41.9 Anxiety disorder, unspecified; F32.9 Major depressive disorder, single episode, unspecified; Z88.1 Allergy status to other antibiotic agents; Z79.899 Other long term (current) drug therapy; Z79.84 Long term (current) use of oral hypoglycemic drugs; E78.00 Pure hypercholesterolemia, unspecified
CPT/HCPCS: 36415; 80053; 85007; 85027; 86140; 96372; 99283; A9270; J1170

== ENCOUNTER 2019-01-23 16:50 | Emergency (ER) | payer BC ==
[2019-01-23 17:06] VITALS: BP 152/99; PULSE 87
[2019-01-23] MEDS ORDERED: HYDROmorphone 0.5 MG/0.5 ML Syringe IVPUSH ONE ×2 (17:10→18:26)
[2019-01-23] MEDS ORDERED: Sodium Chloride 0.9% 10 ML Syringe FLUSH PRN (17:10)
--- NOTE | 2019-01-23 17:36 | EDM.PDOC ---
ED HPI GENERAL MEDICAL PROBLEM - General Chief Complaint: Lower Extremity Injury/Pain Stated Complaint: POSS BLOOD BLOT IN LEFT LEG Time Seen by Provider: 01/23/19 16:59 Source of Information: Reports: Patient, RN Notes Reviewed History Limitations: Reports: No Limitations - History of Present Illness INITIAL COMMENTS - FREE TEXT/NARRATIVE: Patient is a 53-year-old female who presents to the ED for evaluation of a reddened and swollen left lower leg. Patient notes that she developed some swelling, pain, redness to the medial side of her left lower leg this morning. She notes that the swelling has worsened throughout the day. The area now is tender to touch. Patient states she does work a lot and is on her feet quite a bit due to this. She notes that it does hurt worse to bear weight. She states that the pain is radiating up the back of her calf. She denies any sort of trauma to the ankle or area, she has not had any falls. There are no visible open sores present. She denies any started itching in the area, or any new medications or foods. Patient states that she took some tramadol this morning at around 4 AM. She is not on any blood thinners. She is an ex-smoker, but she has not smoked for 8 years. Left Lower Leg Pain Score (Numeric/FACES): 8 - Related Data Allergies Allergy/AdvReac Type Severity Reaction Status Date / Time clindamycin Allergy Hives Verified 11/25/18 16:30 Home Meds: Home Meds Simvastatin [Zocor] 40 mg PO BEDTIME 12/26/16 [History] metFORMIN [Glucophage XR] 1,000 mg PO DAILY 12/26/16 [History] Gabapentin [Neurontin] 600 mg PO TID 10/02/17 [History] Mometasone Furoate [Nasonex [place]] 2 spray STIVEN BID 10/02/17 [History] Multivitamins [Tab-A-Sita] 1 each PO DAILY 10/02/17 [History] Pantoprazole [ProTONIX] 40 mg PO DAILY 10/02/17 [History] amLODIPine [Norvasc] 10 mg PO DAILY 10/02/17 [History] tiZANidine [Zanaflex] 4 mg PO BEDTIME 10/02/17 [History] traMADol [Ultram] 100 mg PO BID 10/02/17 [History] FLUoxetine HCl [Fluoxetine HCl] 40 mg PO DAILY 11/26/17 [History] ALPRAZolam [Xanax] 1 mg PO BID PRN 06/14/18 [History] Past Medical History HEENT History: Reports: Allergic Rhinitis Cardiovascular History: Reports: High Cholesterol, Hypertension Respiratory History: Reports: COPD, Sleep Apnea Gastrointestinal History: Reports: GERD Genitourinary History: Reports: UTI, Recurrent MOUNTER AUTOMATIC History: Reports: Ectopic , , Other (See Below) Other MOUNTER AUTOMATIC History: thickened endometrium, post menopausal bleeding, endometrial hyperplasia, condyloma acuminatum, Right breast cyst drainage, , laparotomy Musculoskeletal History: Reports: Back Pain, Chronic Neurological History: Reports: Neuropathy, Diabetic, Neuropathy, Peripheral, Other (See Below) Other Neuro History: cerviclagia Psychiatric History: Reports: Anxiety, Depression Endocrine/Metabolic History: Reports: Diabetes, Type II Hematologic History: Reports: None Immunologic History: Reports: None Oncologic (Cancer) History: Reports: None Dermatologic History: Reports: Other (See Below) Other Dermatologic History: lipoma excision, contusion to face - Past Surgical History Head Surgeries/Procedures: Reports: None HEENT Surgical History: Reports: None Cardiovascular Surgical History: Reports: None GI Surgical History: Reports: Colonoscopy Female Surgical History: Reports: Tubal Ligation Endocrine Surgical History: Reports: None Musculoskeletal Surgical History: Reports: None Oncologic Surgical History: Reports: None Social & Family History - Family History Family Medical History: Noncontributory - Tobacco Use Smoking Status *Q: Never Smoker - Caffeine Use Caffeine Use: Reports: Coffee - Recreational Drug Use Recreational Drug Use: No - Living Situation & Occupation Living situation: Reports: Occupation: Employed Review of Systems - Review of Systems Review Of Systems: See Below Constitutional: Reports: No Symptoms Eyes: Reports: No Symptoms Ears: Reports: No Symptoms Nose: Reports: No Symptoms Mouth/Throat: Reports: No Symptoms Respiratory: Reports: Other (recovering from chest congestion, thinks she was taking levaquin for this, SOB has not increased from that). Denies: Shortness of Breath, Cough Cardiovascular: Denies: Chest Pain GI/Abdominal: Reports: No Symptoms Genitourinary: Reports: No Symptoms Musculoskeletal: Reports: No Symptoms Skin: Reports: Change in Color (petechiae like redness in a stocking formation on Left medial lower calf towards the posterior leg. Mild swellilng noted in the area as well, this is tender to touch.). Denies: Wound Neurological: Reports: No Symptoms Psychiatric: Reports: No Symptoms ED EXAM, GENERAL - Physical Exam Exam: See Below Exam Limited By: No Limitations General Appearance: Alert, WD/WN, No Apparent Distress Nose: Normal Inspection Throat/Mouth: Normal Inspection, Normal Lips, Normal Teeth, Normal Gums, Normal Oropharynx, Normal Voice, No Airway Compromise Head: Atraumatic, Normocephalic Neck: Normal Inspection Respiratory/Chest: No Respiratory Distress, Lungs Clear, Normal Breath Sounds, No Accessory Muscle Use, Chest Non-Tender Cardiovascular: Normal Peripheral Pulses, Regular Rate, Rhythm, No Murmur Peripheral Pulses: 3+: Dorsalis Pedis (L), Dorsalis Pedis (R) Extremities: Normal Inspection (of R leg), Normal Range of Motion, Normal Capillary Refill, Leg Pain (Left lower leg), Redness (petechiae like redness in a stocking formation on Left medial lower calf towards the posterior leg. Mild swellilng noted in the area as well, this is tender to touch.). No: Increased Warmth Neurological: Alert, Oriented, Normal Cognition, No Motor/Sensory Deficits Psychiatric: Normal Affect, Normal Mood Skin Exam: Warm, Dry, Intact, Normal Color, Petechiae (petechiae like redness in a stocking formation on Left medial lower calf towards the posterior leg. Mild swellilng noted in the area as well, this is tender to touch.) Course - Vital Signs Last Recorded V/S: Last Vital Signs Temp 98.6 F 01/23/19 17:04 Pulse 87 01/23/19 17:04 Resp 20 01/23/19 17:04 BP 152/99 H 01/23/19 17:04 Pulse Ox 98 01/23/19 17:04 - Orders/Labs/Meds Orders: Active Orders 24 hr Category Date Time Status Peripheral IV Care [RC] . DIRECTED Care 01/23/19 17:10 Ordered Sodium Chloride 0.9% [Saline Flush] Med 01/23/19 17:10 Ordered 10 ml FLUSH ASDIRECTED PRN Peripheral IV Insertion Adult [OM.PC] Stat Oth 01/23/19 17:10 Ordered Medication Orders Sodium Chloride (Saline Flush) 10 ml FLUSH ASDIRECTED PRN PRN Reason: Keep Vein Open Last Admin: 01/23/19 17:22 Dose: 10 ml Labs: Laboratory Tests 01/23/19 01/23/19 01/23/19 Range/Units 17:20 17:20 17:20 WBC 7.91 (3.98-10.04) K/mm3 RBC 4.25 (3.98-5.22) M/mm3 Hgb 12.8 (11.2-15.7) gm/dl Hct 39.2 (34.1-44.9) % MCV 92.2 (79.4-94.8) fl MCH 30.1 (25.6-32.2) pg MCHC 32.7 (32.2-35.5) g/dl RDW Std Deviation 44.3 (36.4-46.3) fL Plt Count 320 (182-369) K/mm3 MPV 8.8 L (9.4-12.3) fl Neut % (Auto) 48.6 (34.0-71.1) % Lymph % (Auto) 36.0 (19.3-51.7) % [place] % (Auto) 8.7 (4.7-12.5) % Eos % (Auto) 6.1 H (0.7-5.8) Baso % (Auto) 0.5 (0.1-1.2) % Neut # (Auto) 3.84 (1.56-6.13) K/mm3 Lymph # (Auto) 2.85 (1.18-3.74) K/mm3 [place] # (Auto) 0.69 H (0.24-0.36) K/mm3 Eos # (Auto) 0.48 H (0.04-0.36) K/mm3 Baso # (Auto) 0.04 (0.01-0.08) K/mm3 D-Dimer, Quantitative 0.44 (0.19-0.50) mg/L Sodium 140 (136-145) mEq/L Potassium 3.6 (3.5-5.1) mEq/L Chloride 103 (98-107) mEq/L Carbon Dioxide 31 (21-32) mEq/L Anion Gap 9.6 (5-15) BUN 16 (7-18) mg/dL Creatinine 1.0 (0.55-1.02) mg/dL Est Cr Clr Drug Dosing 56.83 mL/min Estimated GFR (MDRD) 58 (>60) mL/min BUN/Creatinine Ratio 16.0 (14-18) Glucose 109 H (74-106) mg/dL Calcium 9.0 (8.5-10.1) mg/dL Total Bilirubin 0.2 (0.2-1.0) mg/dL AST 23 (15-37) U/L ALT 20 (14-59) U/L Alkaline Phosphatase 168 H (46-116) U/L C-Reactive Protein (<1.0) mg/dL Total Protein 7.6 (6.4-8.2) g/dl Albumin 3.6 (3.4-5.0) g/dl Globulin 4.0 gm/dL Albumin/Globulin Ratio 0.9 L (1-2) 01/23/19 Range/Units 17:20 WBC (3.98-10.04) K/mm3 RBC (3.98-5.22) M/mm3 Hgb (11.2-15.7) gm/dl Hct (34.1-44.9) % MCV (79.4-94.8) fl MCH (25.6-32.2) pg MCHC (32.2-35.5) g/dl RDW Std Deviation (36.4-46.3) fL Plt Count (182-369) K/mm3 MPV (9.4-12.3) fl Neut % (Auto) (34.0-71.1) % Lymph % (Auto) (19.3-51.7) % [place] % (Auto) (4.7-12.5) % Eos % (Auto) (0.7-5.8) Baso % (Auto) (0.1-1.2) % Neut # (Auto) (1.56-6.13) K/mm3 Lymph # (Auto) (1.18-3.74) K/mm3 [place] # (Auto) (0.24-0.36) K/mm3 Eos # (Auto) (0.04-0.36) K/mm3 Baso # (Auto) (0.01-0.08) K/mm3 D-Dimer, Quantitative (0.19-0.50) mg/L Sodium (136-145) mEq/L Potassium (3.5-5.1) mEq/L Chloride (98-107) mEq/L Carbon Dioxide (21-32) mEq/L Anion Gap (5-15) BUN (7-18) mg/dL Creatinine (0.55-1.02) mg/dL Est Cr Clr Drug Dosing mL/min Estimated GFR (MDRD) (>60) mL/min BUN/Creatinine Ratio (14-18) Glucose (74-106) mg/dL Calcium (8.5-10.1) mg/dL Total Bilirubin (0.2-1.0) mg/dL AST (15-37) U/L ALT (14-59) U/L Alkaline Phosphatase (46-116) U/L C-Reactive Protein 0.3 (<1.0) mg/dL Total Protein (6.4-8.2) g/dl Albumin (3.4-5.0) g/dl Globulin gm/dL Albumin/Globulin Ratio (1-2) Meds: Medications Generic Name Dose Route Start Last Admin Trade Name Freq PRN Reason Stop Dose Admin Sodium Chloride 10 ml 01/23/19 17:10 01/23/19 17:22 Saline Flush FLUSH 10 ml ASDIRECTED PRN Administration Keep Vein Open Discontinued Medications Generic Name Dose Route Start Last Admin Trade Name Freq PRN Reason Stop Dose Admin Hydromorphone HCl 0.5 mg 01/23/19 17:10 01/23/19 17:21 Dilaudid IVPUSH 01/23/19 17:11 0.5 mg ONETIME ONE Administration Hydromorphone HCl 0.5 mg 01/23/19 18:26 01/23/19 18:33 Dilaudid IVPUSH 01/23/19 18:27 0.5 mg ONETIME ONE Administration - Re-Assessments/Exams Free Text/Narrative Re-Assessment/Exam: 01/23/19 17:36 Patient presents to the ED for evaluation of left lower leg swelling and pain. The area is more visibly swollen on the left as compared to the right. I did order some labs, and ultrasound to evaluate for possible blood clot. Patient notes that she has been recently sick with a cough, and chest congestion. She thinks she was on some Levaquin for this. She states that she is having some lingering chest tightness or shortness of breath after this, and does not believe this is worsened since the pain in her legs started. 01/23/19 18:42 Patient's labs are back, and demonstrate no acute abnormalities at this time. Ultrasound was also done and shows no sign of a DVT in the left lower leg extremity, there was edema within the subcutaneous tissues of the left calf. We 'll recommend patient obtained some ROSA hose, and elevate the legs as much as possible at home. Departure - Departure Time of Disposition: 18:43 Disposition: Home, Self-Care 01 Condition: Fair Clinical Impression: Pain and swelling of left lower extremity - Discharge Information *PRESCRIPTION DRUG MONITORING PROGRAM REVIEWED*: No *COPY OF PRESCRIPTION DRUG MONITORING REPORT IN PATIENT MEAGAN: No Instructions: Edema, [id number] Referrals: Louisa Mohamud NP [Primary Care Provider] - Forms: ED Department Discharge Additional Instructions: Your evaluated in the ED today for your left lower leg pain and swelling. Your laboratory evaluation and ultrasound demonstrated no sign of a DVT at this time. It did show some mild swelling in this area. Recommend that you obtain some ROSA hose or compression stockings and where these during work time hours, and when you get home elevate the legs so that they're above heart level to try to alleviate some of the swelling. You may take your tramadol as needed for further pain relief, or 600mg ibuprofen every 6 hours for further pain relief. Please return to the ED if your symptoms should change or worsen. - My Orders Last 24 Hours: My Active Orders 01/23/19 17:10 Peripheral IV Care [RC] . DIRECTED Sodium Chloride 0.9% [Saline Flush] 10 ml FLUSH ASDIRECTED PRN Peripheral IV Insertion Adult [OM.PC] Stat - Assessment/Plan Last 24 Hours: My Active Orders 01/23/19 17:10 Peripheral IV Care [RC] . DIRECTED Sodium Chloride 0.9% [Saline Flush] 10 ml FLUSH ASDIRECTED PRN Peripheral IV Insertion Adult [OM.PC] Stat
--- NOTE | 2019-01-23 18:27 | US ---
Left lower extremity deep venous ultrasound: Duplex and color flow imaging was obtained of the left common femoral, proximal greater saphenous, superficial femoral, popliteal, posterior tibial and peroneal veins. Right common femoral vein was also evaluated. Comparison: No previous venous imaging. Findings: Normal phasic flow, augmentation and compression is seen. There is edema being seen within the subcutaneous tissues of left calf. Impression: 1. Edema within the subcutaneous tissues of the left calf. 2. No evidence of deep venous thrombosis within the left lower extremity right common femoral vein. Diagnostic code #2
== END 2019-01-23 18:55 | disposition home or self-care (01) ==
LOC: JD.ED 16:50
DX: M79.662 Pain in left lower leg (principal); M79.89 Other specified soft tissue disorders; E78.00 Pure hypercholesterolemia, unspecified; I10 Essential (primary) hypertension; J44.9 Chronic obstructive pulmonary disease, unspecified; F41.9 Anxiety disorder, unspecified; F32.9 Major depressive disorder, single episode, unspecified; E11.40 Type 2 diabetes mellitus with diabetic neuropathy, unspecified; E11.42 Type 2 diabetes mellitus with diabetic polyneuropathy; Z88.1 Allergy status to other antibiotic agents; Z79.899 Other long term (current) drug therapy; Z79.84 Long term (current) use of oral hypoglycemic drugs
CPT/HCPCS: 36415; 80053; 85025; 85379; 86140; 93971; 96374; 96376; 99284; J1170

== ENCOUNTER 2019-01-31 16:47 | Emergency (ER) | payer BC ==
[2019-01-31 17:15] VITALS: BP 155/86; PULSE 88
[2019-01-31] MEDS ORDERED: Cephalexin 500 MG Cap PO STA (19:09)
[2019-01-31] MEDS ORDERED: Ketorolac 60 MG/2 ML SDV IM ONE (19:10)
[2019-01-31] MEDS ORDERED: FLU Vacc QS2019-20(6MOS+)/PF 60 MCG/0.5 ML SYRINGE IM ONE (19:15)
--- NOTE | 2019-01-31 19:18 | EDM.PDOC ---
ED HPI GENERAL MEDICAL PROBLEM - General Chief Complaint: Skin Complaint Stated Complaint: ANKLE INFECTION Time Seen by Provider: 01/31/19 18:52 Source of Information: Reports: Patient History Limitations: Reports: No Limitations - History of Present Illness INITIAL COMMENTS - FREE TEXT/NARRATIVE: Ms. Alejandre is a very pleasant 53-year-old woman with a past medical history significant for diabetes and diabetic neuropathy, who states that she has had a rash on her distal left leg for about 2 months. She underwent a punch biopsy this past 01/29/2019, then developed pain, swelling, and erythema surrounding the biopsy site yesterday. No recent fever. The patient states that she was prescribed Levaquin for a cold, from 01/20/2019 or 01/21/2019 through 01/27/2019 or 01/28/2019. The patient states that she Accu-Cheks once a day, with her usual blood glucose being between 100 and 130. Her Accu-Chek today was 122. The patient's PCP is Louisa Mohamud NP. Her Surgeon is Dr. Negrito Rizzo. Left Lower Leg Pain Score (Numeric/FACES): 6 - Related Data Allergies Allergy/AdvReac Type Severity Reaction Status Date / Time clindamycin Allergy Hives Verified 01/31/19 17:11 Home Meds: Home Meds Simvastatin [Zocor] 40 mg PO BEDTIME 12/26/16 [History] metFORMIN [Glucophage XR] 1,000 mg PO DAILY 12/26/16 [History] Gabapentin [Neurontin] 600 mg PO TID 10/02/17 [History] Mometasone Furoate [Nasonex [place]] 2 spray STIVEN BID 10/02/17 [History] Multivitamins [Tab-A-Sita] 1 each PO DAILY 10/02/17 [History] Pantoprazole [ProTONIX] 40 mg PO DAILY 10/02/17 [History] amLODIPine [Norvasc] 10 mg PO DAILY 10/02/17 [History] tiZANidine [Zanaflex] 4 mg PO BEDTIME 10/02/17 [History] traMADol [Ultram] 100 mg PO BID 10/02/17 [History] FLUoxetine HCl [Fluoxetine HCl] 40 mg PO DAILY 11/26/17 [History] ALPRAZolam [Xanax] 1 mg PO BID PRN 06/14/18 [History] Cephalexin [Keflex] 1 tab PO Q6H #28 capsule 01/31/19 [Rx] Past Medical History HEENT History: Reports: Allergic Rhinitis Cardiovascular History: Reports: High Cholesterol, Hypertension Respiratory History: Reports: Sleep Apnea (nightly CPAP 6) Gastrointestinal History: Reports: GERD 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 Denies: EGD Female Surgical History: Reports: D&C (x 1), Hysterectomy (partial) Dermatological Surgical History: Reports: Other (See Below) (Lipoma excised off back) Social & Family History - Family History Family Medical History: Noncontributory - Tobacco Use Smoking Status *Q: Former Smoker Years of Tobacco use: 30 Packs/Tins Daily: 0.5 Month/Year Tobacco Last Used: Quit 2009 - Caffeine Use Caffeine Use: Reports: Coffee - Alcohol Use Alcohol Use History: No - Recreational Drug Use Recreational Drug Use: Yes Drug Use in Last 12 Months: No Recreational Drug Type: Reports: Cocaine (last snorted or smoked 2007), Marijuana/Hashish (last smoked late ), Methamphetamine (last smoked 2007) - Living Situation & Occupation Living situation: Reports: , Alone Occupation: Employed ([employer]) ED ROS GENERAL - Review of Systems Review Of Systems: ROS reveals no pertinent complaints other than HPI. Musculoskeletal: Reports: Back Pain (chronic) ED EXAM, SKIN/RASH Exam: See Below Exam Limited By: No Limitations General Appearance: Alert, WD/WN, No Apparent Distress Extremities: Other (There is a punch biopsy site to the medial aspect of the patient's distal left leg, with black eschar in the center of it. There is an approximately 2 cm diameter area of erythema with mild swelling and calor to palpation, the patient reports is tender, surrounding the central area of the punch biopsy. Neurovascular status of the left lower extremity is intact.) Course - Vital Signs Last Recorded V/S: Last Vital Signs Temp 37.1 C 01/31/19 17:11 Pulse 88 01/31/19 17:11 Resp 16 01/31/19 17:11 BP 155/86 H 01/31/19 17:11 Pulse Ox 95 01/31/19 17:11 - Orders/Labs/Meds Meds: Medications Discontinued Medications Generic Name Dose Route Start Last Admin Trade Name Gill PRN Reason Stop Dose Admin Cephalexin 500 mg 01/31/19 19:09 01/31/19 19:33 Keflex PO 01/31/19 19:10 500 mg ONETIME STA Administration Influenza Virus Vaccine 1 each 01/31/19 19:13 Pharmacy To Dose - Influenza Vaccine IM 01/31/19 19:14 ONETIME ONE Influenza Virus Vaccine 60 mcg 01/31/19 19:15 01/31/19 19:35 Fluzone Quad [id number] Syringe IM 01/31/19 19:16 60 mcg .ONCE ONE Administration Ketorolac Tromethamine 60 mg 01/31/19 19:10 01/31/19 19:33 Toradol IM 01/31/19 19:11 60 mg ONETIME ONE Administration - Re-Assessments/Exams Free Text/Narrative Re-Assessment/Exam: 01/31/19 19:11 The patient appears to have a mild infection surrounding the punch biopsy site to her medial left leg, and I think a course of antibiotics would be appropriate , especially since she has diabetes. I will start her on oral Keflex and prescribe a 7-day course, but I would also like her to follow-up with Dr. Rizzo as early as this coming Sunday. The patient requested pain medication, although acknowledged that she has hydrocodone at home. She will receive IM Toradol here in the ED. 01/31/19 19:13 The patient agreed to receive an influenza vaccine here in the ED tonight. Departure - Departure Time of Disposition: 19:14 Disposition: Home, Self-Care 01 Condition: Good Clinical Impression: Cellulitis of left leg - Discharge Information *PRESCRIPTION DRUG MONITORING PROGRAM REVIEWED*: Not Applicable *COPY OF PRESCRIPTION DRUG MONITORING REPORT IN PATIENT MEAGAN: Not Applicable Prescriptions: Cephalexin [Keflex] 1 tab PO Q6H #28 capsule Instructions: Cellulitis, Adult, [id number] Referrals: Louisa Mohamud NP [Primary Care Provider] - Negrito Rizzo MD [Physician] - Forms: ED Department Discharge Additional Instructions: You were seen in the emergency room for redness, swelling, and pain surrounding the punch biopsy site your left leg, today. Based on your history and physical examination, you likely have a mild infection to the area. You have been started on the antibiotic Keflex. A prescription for Keflex has been sent to the [facility], located in the [employer] store. Take one tablet of Keflex every 6 hours, starting tomorrow morning, Sunday, , as prescribed. Finish the entire prescription unless told otherwise by Dr. Rizzo. Continue to keep the wound clean as instructed by Dr. Rizzo. Follow-up with Dr. Rizzo at the next available appointment. If any other problems, please do not hesitate to return to the ER. *You received an influenza vaccine during your ER visit.*
== END 2019-01-31 19:38 | disposition home or self-care (01) ==
LOC: JD.ED 16:47
DX: L03.116 Cellulitis of left lower limb (principal); E78.00 Pure hypercholesterolemia, unspecified; I10 Essential (primary) hypertension; G47.30 Sleep apnea, unspecified; K21.9 Gastro-esophageal reflux disease without esophagitis; E11.40 Type 2 diabetes mellitus with diabetic neuropathy, unspecified; F41.9 Anxiety disorder, unspecified; F32.9 Major depressive disorder, single episode, unspecified; Z88.1 Allergy status to other antibiotic agents; Z87.891 Personal history of nicotine dependence; Z79.899 Other long term (current) drug therapy; Z79.84 Long term (current) use of oral hypoglycemic drugs; Z23 Encounter for immunization
CPT/HCPCS: 90471; 90686; 96372; 99283; A9270; J1885; G0008

== ENCOUNTER 2019-05-04 11:38 | Emergency (ER) | payer BC ==
[2019-05-04] MEDS ORDERED: Ondansetron 4 MG/2 ML SDV IVPUSH ONE (11:56)
[2019-05-04] MEDS ORDERED: Sodium Chloride 0.9% 10 ML Syringe FLUSH PRN ×2 (11:56→13:42)
[2019-05-04] MEDS ORDERED: HYDROmorphone 0.5 MG/0.5 ML Syringe IVPUSH ONE (11:56)
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
[2019-05-04 12:02] VITALS: BP 150/101; PULSE 87
[2019-05-04] MEDS ORDERED: Diatrizoate Meglumine/Diatrizoate Sodium 37% 120 ML Bottle PO ONE (13:42)
[2019-05-04] MEDS ORDERED: Iopamidol 612 MG/ML 100 ML Bottle IVPUSH ONE (13:42)
--- NOTE | 2019-05-04 14:20 | CT ---
CT abdomen and pelvis Technique: Multiple axial sections were obtained from above the dome of the diaphragm inferiorly through the pubic symphysis. Intravenous and oral contrast was utilized. Comparison: Prior CT abdomen and pelvis exam of 11/30/17. Findings: Visualized lung bases shows nothing acute. Fatty infiltration is seen within the liver. No focal abnormality is appreciated within the liver. Spleen appears within normal limits. Adrenal glands show no nodule. Pancreas appears within normal limits. Kidneys show symmetric contrast enhancement without hydronephrosis or mass. Gallbladder contains no calcified gallstones. Aorta shows no aneurysm. No retroperitoneal adenopathy or mesenteric abnormalities are seen. No pelvic mass or adenopathy is noted. No free fluid or inflammatory change is appreciated. Appendix is seen and is normal in size. Delayed images shows contrast within the distal ureters and within the bladder. Bone window settings were reviewed which shows degenerative change within the apophyseal joints most prominent at L4-5. Small fat-containing umbilical hernia is noted. Impression: 1. Findings as noted above. 2. Nothing acute is appreciated on CT study of the abdomen and pelvis. No etiology is identified for the reported left lower quadrant abdominal pain. Diagnostic code #2 This report was dictated in [place] Standard Time
== END 2019-05-04 14:46 | disposition home or self-care (01) ==
LOC: JD.ED 11:38
DX: S30.1XXA Contusion of abdominal wall, initial encounter (principal); I10 Essential (primary) hypertension; K21.9 Gastro-esophageal reflux disease without esophagitis; E11.9 Type 2 diabetes mellitus without complications; F41.9 Anxiety disorder, unspecified; Z79.84 Long term (current) use of oral hypoglycemic drugs; Z79.899 Other long term (current) drug therapy; Z90.710 Acquired absence of both cervix and uterus; Z88.1 Allergy status to other antibiotic agents; Z88.5 Allergy status to narcotic agent; Y04.2XXA Assault by strike against or bumped into by another person, initial encounter
CPT/HCPCS: 36415; 74177; 80053; 81003; 85025; 96374; 96375; 99284; J1170; J2405; Q9963; Q9967; 99283

== ENCOUNTER 2019-05-05 10:07 | Emergency (ER) | payer BC ==
[2019-05-05 10:42] VITALS: PULSE 87
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
--- NOTE | 2019-05-05 12:40 | US ---
Limited abdominal ultrasound: Multiple real-time images of the upper right abdomen were obtained. Comparison: Prior CT abdomen and pelvis exam from 05/04/19 is available. Liver is echogenic compatible with fatty infiltration. Hypoechoic area is noted within the right lobe of the liver most likely representing an area of focal fatty sparing. Gallbladder contains no shadowing gallstones. No gallbladder wall thickening or biliary duct dilatation is seen. Right kidney shows no hydronephrosis or mass. Right kidney has a length of 11.0 cm. Visualized portions of the pancreas show no discrete abnormality. Inferior vena cava is patent. Main portal vein shows normal hepatopedal flow. Impression: 1. Fatty infiltration within the liver with an area of focal fatty sparing within the right lobe. 2. No additional abnormality is appreciated on right upper quadrant abdominal ultrasound. Diagnostic code #2 This report was dictated in [place] Standard Time
[2019-05-05 13:35] VITALS: BP 132/75
== END 2019-05-05 13:00 | disposition home or self-care (01) ==
LOC: JD.ED 10:07
DX: R10.11 Right upper quadrant pain (principal); K76.0 Fatty (change of) liver, not elsewhere classified; I10 Essential (primary) hypertension; E11.40 Type 2 diabetes mellitus with diabetic neuropathy, unspecified; F41.9 Anxiety disorder, unspecified; F32.9 Major depressive disorder, single episode, unspecified; Z79.84 Long term (current) use of oral hypoglycemic drugs; Z79.899 Other long term (current) drug therapy; Z90.710 Acquired absence of both cervix and uterus; Z88.1 Allergy status to other antibiotic agents; Z88.5 Allergy status to narcotic agent; W00.0XXA Fall on same level due to ice and snow, initial encounter
CPT/HCPCS: 76705; 76705-26; 99281; 99284-25

== ENCOUNTER 2019-05-12 10:01 | Emergency (ER) | payer BC ==
[2019-05-12 10:17] VITALS: BP 162/97; PULSE 75
== END 2019-05-12 12:48 | disposition left against medical advice (07) ==
LOC: JD.ED 10:01
DX: Z53.21 Procedure and treatment not carried out due to patient leaving prior to being seen by health care provider (principal)

== ENCOUNTER 2019-05-13 11:50 | Emergency (ER) | payer BC ==
[2019-05-13 12:11] VITALS: BP 130/69
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
[2019-05-13] MEDS ORDERED: Dicyclomine 10 MG Cap PO ONE (12:35)
[2019-05-13 15:38] VITALS: PULSE 82
== END 2019-05-13 14:10 | disposition home or self-care (01) ==
LOC: JD.ED 11:50
DX: S30.1XXA Contusion of abdominal wall, initial encounter (principal); E78.00 Pure hypercholesterolemia, unspecified; I10 Essential (primary) hypertension; E11.40 Type 2 diabetes mellitus with diabetic neuropathy, unspecified; F41.9 Anxiety disorder, unspecified; K21.9 Gastro-esophageal reflux disease without esophagitis; Z79.84 Long term (current) use of oral hypoglycemic drugs; Z79.899 Other long term (current) drug therapy; Z88.1 Allergy status to other antibiotic agents; Z88.6 Allergy status to analgesic agent; Y04.0XXA Assault by unarmed brawl or fight, initial encounter
CPT/HCPCS: 99283; A9270

== ENCOUNTER 2019-05-21 16:46 | Emergency (ER) | payer BC ==
[2019-05-21 16:55] VITALS: BP 164/94; PULSE 94
[2019-05-21] MEDS ORDERED: Sodium Chloride 0.9% 1,000 ML IV STA (17:08)
[2019-05-21] MEDS ORDERED: Sodium Chloride 0.9% 10 ML Syringe FLUSH PRN (17:08)
[2019-05-21] MEDS ORDERED: Ondansetron 4 MG/2 ML SDV IVPUSH ONE (17:08)
[2019-05-21] MEDS ORDERED: HYDROmorphone 0.5 MG/0.5 ML Syringe IVPUSH ONE ×2 (17:09→18:04)
--- NOTE | 2019-05-21 18:32 | CT ---
CT abdomen and pelvis Technique: Multiple axial sections were obtained from above the dome of the diaphragm inferiorly through the pubic symphysis. Intravenous contrast and oral contrast was not given. Study has been performed as a ureteral stone protocol. Comparison: Previous CT abdomen and pelvis study of 05/04/19. Findings: Kidneys show no abnormal calcifications. No ureteral dilatation or ureteral stone is seen. Visualized lung bases show nothing acute. Liver contains no focal parenchymal abnormality. Mild fatty infiltration is noted within the liver. Gallbladder contains no calcified gallstones. Pancreas shows no discrete abnormality. Spleen appears within normal limits. Adrenal glands show no nodule. Pancreas is within normal limits. Aorta shows no aneurysm. No retroperitoneal adenopathy or mesenteric abnormalities are seen. No pelvic mass or adenopathy is seen. No free fluid or inflammatory change is seen. Appendix is seen and is normal in size. Bone window settings were reviewed which shows degenerative change within the apophyseal joints at L4-5 with vacuum phenomena and degenerative fragmentation. Disc space narrowing at L5-S1 with vacuum phenomena. Mild disc space narrowing is noted within the lower thoracic spine with several levels of vacuum phenomena. Impression: 1. No renal calculi, ureteral dilatation or ureteral stone is seen. 2. Other findings believed to be incidental as noted above. 3. Nothing acute is appreciated on noncontrast CT study of the abdomen and pelvis. Diagnostic code #2 This report was dictated in [place] Standard Time
--- NOTE | 2019-05-21 19:00 | EDM.PDOC ---
ED HPI GENERAL MEDICAL PROBLEM - General Chief Complaint: Gastrointestinal Problem Stated Complaint: UNABLE TO EAT/STOMACH CRAMPS Time Seen by Provider: 05/21/19 16:56 Source of Information: Reports: Patient History Limitations: Reports: No Limitations - History of Present Illness INITIAL COMMENTS - FREE TEXT/NARRATIVE: The patient presents with abdominal pain, nausea, vomiting and diarrhea for the past 3 weeks. She has been seen here multiple times and she had an US, CT and labs. Nothing has been found. She has tried to get into her doctor but she could not. She still has her gallbladder and appendix. Almost every time she eats she has pain and diarrhea. She was incontinent of stool today at work. She had to go home and change. She did not travel out of the country and she did not eat any bad food. She has not been on antibiotics. Onset: Gradual Duration: Week(s): (3) Location: Reports: Abdomen Quality: Reports: Sharp Severity: Moderate Improves with: Reports: None Worsens with: Reports: None Associated Symptoms: Reports: Nausea/Vomiting. Denies: Chest Pain, Cough, Fever /Chills, Headaches, Shortness of Breath Middle Abdomen Pain Score (Numeric/FACES): 7 - Related Data Allergies Allergy/AdvReac Type Severity Reaction Status Date / Time clindamycin Allergy Hives Verified 05/21/19 16:55 morphine Allergy Hives Uncoded 05/21/19 16:55 Home Meds: Home Meds Simvastatin [Zocor] 40 mg PO BEDTIME 12/26/16 [History] metFORMIN [Glucophage XR] 1,000 mg PO DAILY 12/26/16 [History] Gabapentin [Neurontin] 600 mg PO TID 10/02/17 [History] Pantoprazole [ProTONIX] 40 mg PO DAILY 10/02/17 [History] amLODIPine [Norvasc] 10 mg PO DAILY 10/02/17 [History] tiZANidine [Zanaflex] 4 mg PO BEDTIME 10/02/17 [History] traMADol [Ultram] 100 mg PO BID 10/02/17 [History] FLUoxetine HCl [Fluoxetine HCl] 40 mg PO DAILY 11/26/17 [History] ALPRAZolam [Xanax] 1 mg PO BID PRN 06/14/18 [History] oxyCODONE HCl/Acetaminophen [Oxycodone-Acetaminophen 5-325] 1 tab PO TID PRN [History] Past Medical History HEENT History: Reports: Allergic Rhinitis Cardiovascular History: Reports: High Cholesterol, Hypertension Respiratory History: Reports: Sleep Apnea Gastrointestinal History: Reports: GERD Genitourinary History: Reports: UTI, Recurrent 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 , Other MANAGER HEAVY DUTY History: thickened endometrium, post menopausal bleeding, endometrial hyperplasia, condyloma acuminatum, Right breast cyst drainage, , laparotomy Musculoskeletal History: Reports: Back Pain, Chronic, Fracture Neurological History: Reports: Neuropathy, Diabetic Other Neuro History: cerviclagia Psychiatric History: Reports: Anxiety, Depression Endocrine/Metabolic History: Reports: Diabetes, Type II, Obesity/BMI 30+ Hematologic History: Reports: None Immunologic History: Reports: None Oncologic (Cancer) History: Reports: None Dermatologic History: Reports: Other (See Below) Other Dermatologic History: lipoma excision, contusion to face - Infectious Disease History Infectious Disease History: Reports: Chicken Pox, Measles, Mumps - Past Surgical History Head Surgeries/Procedures: Reports: None GI Surgical History: Reports: Colonoscopy Female Surgical History: Reports: D&C, Hysterectomy Dermatological Surgical History: Reports: Other (See Below) Social & Family History - Family History Family Medical History: Noncontributory - Tobacco Use Smoking Status *Q: Former Smoker Used Tobacco, but Quit: Yes Month/Year Tobacco Last Used: 2009 - Caffeine Use Caffeine Use: Reports: Coffee - Recreational Drug Use Recreational Drug Use: No - Living Situation & Occupation Living situation: Reports: , Alone Occupation: Employed ([employer] - Review of Systems Review Of Systems: See Below Constitutional: Reports: No Symptoms HEENT: Reports: No Symptoms Respiratory: Reports: No Symptoms Cardiovascular: Reports: No Symptoms Endocrine: Reports: No Symptoms GI/Abdominal: Reports: Abdominal Pain, Diarrhea, Nausea, Vomiting : Reports: No Symptoms Musculoskeletal: Reports: No Symptoms ED EXAM, GI/ABD - Physical Exam Exam: See Below Exam Limited By: No Limitations General Appearance: Alert, No Apparent Distress Ears: Normal External Exam Nose: Normal Inspection Head: Atraumatic, Normocephalic Neck: Normal Inspection Respiratory/Chest: No Respiratory Distress, Lungs Clear, Normal Breath Sounds Cardiovascular: Regular Rate, Rhythm, No Edema, No Murmur GI/Abdominal Exam: Soft, Tender (Generalized) Course - Vital Signs Last Recorded V/S: Last Vital Signs Temp 96.7 F 05/21/19 16:51 Pulse 94 05/21/19 16:51 Resp 19 05/21/19 16:51 BP 164/94 H 05/21/19 16:51 Pulse Ox 96 05/21/19 16:51 - Orders/Labs/Meds Orders: Active Orders 24 hr Category Date Time Status Peripheral IV Care [RC] . DIRECTED Care 05/21/19 17:08 Active Sodium Chloride 0.9% [Saline Flush] Med 05/21/19 17:08 Active 10 ml FLUSH ASDIRECTED PRN ED Antiemetic Medication Reflex [OM.PC] Stat Oth 05/21/19 17:08 Ordered Peripheral IV Insertion Adult [OM.PC] Stat Oth 05/21/19 17:08 Ordered Medication Orders Sodium Chloride (Saline Flush) 10 ml FLUSH ASDIRECTED PRN PRN Reason: Keep Vein Open Last Admin: 05/21/19 17:37 Dose: 10 ml Labs: Laboratory Tests 05/21/19 05/21/19 05/21/19 Range/Units 17:20 17:35 17:35 WBC 8.77 (3.98-10.04) K/mm3 RBC 4.86 (3.98-5.22) M/mm3 Hgb 15.1 (11.2-15.7) gm/dl Hct 45.2 H (34.1-44.9) % MCV 93.0 D (79.4-94.8) fl MCH 31.1 (25.6-32.2) pg MCHC 33.4 (32.2-35.5) g/dl RDW Std Deviation 45.9 (36.4-46.3) fL Plt Count 404 H (182-369) K/mm3 MPV 8.6 L (9.4-12.3) fl Neut % (Auto) 57.4 (34.0-71.1) % Lymph % (Auto) 31.6 (19.3-51.7) % [place] % (Auto) 8.3 (4.7-12.5) % Eos % (Auto) 2.3 (0.7-5.8) Baso % (Auto) 0.3 (0.1-1.2) % Neut # (Auto) 5.03 (1.56-6.13) K/mm3 Lymph # (Auto) 2.77 (1.18-3.74) K/mm3 [place] # (Auto) 0.73 H (0.24-0.36) K/mm3 Eos # (Auto) 0.20 (0.04-0.36) K/mm3 Baso # (Auto) 0.03 (0.01-0.08) K/mm3 Sodium 143 (136-145) mEq/L Potassium 3.2 L (3.5-5.1) mEq/L Chloride 102 (98-107) mEq/L Carbon Dioxide 28 (21-32) mEq/L Anion Gap 16.2 H (5-15) BUN 6 L (7-18) mg/dL Creatinine 0.9 (0.55-1.02) mg/dL Est Cr Clr Drug Dosing 62.42 mL/min Estimated GFR (MDRD) > 60 (>60) mL/min BUN/Creatinine Ratio 6.7 L (14-18) Glucose 96 (74-106) mg/dL Calcium 9.7 (8.5-10.1) mg/dL Total Bilirubin 0.2 (0.2-1.0) mg/dL AST 26 (15-37) U/L ALT 40 (14-59) U/L Alkaline Phosphatase 140 H (46-116) U/L Total Protein 8.5 H (6.4-8.2) g/dl Albumin 4.2 (3.4-5.0) g/dl Globulin 4.3 gm/dL Albumin/Globulin Ratio 1.0 (1-2) Lipase 98 (73-393) U/L Urine Color Yellow (Yellow) Urine Appearance Cloudy H (Clear) Urine pH 5.5 (5.0-8.0) Ur Specific [place] > or = 1.030 (1.005-1.030) Urine Protein 1+ H (Negative) Urine Glucose (UA) Negative (Negative) Urine Ketones Negative (Negative) Urine Occult Blood Negative (Negative) Urine Nitrite Negative (Negative) Urine Bilirubin Negative (Negative) Urine Urobilinogen 0.2 (0.2-1.0) Ur Leukocyte Esterase Negative (Negative) Urine RBC 0-5 (0-5) /hpf Urine WBC 0-5 (0-5) /hpf Ur Squamous Epith Cells 10-20 H (0-5) /hpf Calcium Oxalate Crystal Few H (NONE) Urine Bacteria Few (FEW) /hpf Urine Mucus Many H (FEW) /hpf Meds: Medications Generic Name Dose Route Start Last Admin Trade Name Gill PRN Reason Stop Dose Admin Sodium Chloride 10 ml 05/21/19 17:08 05/21/19 17:37 Saline Flush FLUSH 10 ml ASDIRECTED PRN Administration Keep Vein Open Discontinued Medications Generic Name Dose Route Start Last Admin Trade Name Gill PRN Reason Stop Dose Admin Hydromorphone HCl 0.5 mg 05/21/19 17:09 05/21/19 17:37 Dilaudid IVPUSH 05/21/19 17:10 0.5 mg ONETIME ONE Administration Hydromorphone HCl 0.5 mg 05/21/19 18:04 05/21/19 18:24 Dilaudid IVPUSH 05/21/19 18:05 0.5 mg ONETIME ONE Administration Sodium Chloride 1,000 mls @ 1,000 mls/hr 05/21/19 17:08 05/21/19 17:37 Normal Saline IV 05/21/19 18:07 1,000 mls/hr .BOLUS STA Administration Ondansetron HCl 4 mg 05/21/19 17:08 05/21/19 17:37 Zofran IVPUSH 05/21/19 17:09 4 mg ONETIME ONE Administration - Re-Assessments/Exams Free Text/Narrative Re-Assessment/Exam: 05/21/19 19:04 I ordered an IV NS 1L bolus, zofran 4mg IV, dilaudid IV, UA and CT of her abdomen and pelvis. She has right flank pain now so I will get a CT without contrast. Her CBC looks good. Her K was low at 3.2. Her anion gap was elevated at 16.2. Her alk phos was elevated at 140. Her lipase was negative. Her UA shows no UTI. Her CT show no renal calculi, ureteral dilatation or ureteral stone is seen. other findings believed to be incidental. She could not provide any stool samples. I will give her some specimen cups. Departure - Departure Time of Disposition: 19:10 Disposition: Home, Self-Care 01 Condition: Good Clinical Impression: Abdominal pain, Vomiting, Diarrhea - Discharge Information *PRESCRIPTION DRUG MONITORING PROGRAM REVIEWED*: Not Applicable *COPY OF PRESCRIPTION DRUG MONITORING REPORT IN PATIENT MEAGAN: Not Applicable Referrals: Louisa Mohamud NP [Primary Care Provider] - 1 Week Forms: ED Department Discharge Additional Instructions: Drink plenty of fluids. Take your medication as prescribed. Try some immodium for the diarrhea. Try to get some stool specimens so we can test your stool. Follow up with your doctor within the week. Please return if you are worse. Sepsis Event Note - Evaluation Sepsis Screening Result: Possible Sepsis Risk - Focused Exam Vital Signs: Vital Signs Temp Pulse Resp BP Pulse Ox 05/21/19 16:51 96.7 F 94 19 164/94 H 96 Date Exam was Performed: 05/21/19 Time Exam was Performed: 19:02 - My Orders Last 24 Hours: My Active Orders 05/21/19 17:08 Peripheral IV Care [RC] . DIRECTED Sodium Chloride 0.9% [Saline Flush] 10 ml FLUSH ASDIRECTED PRN ED Antiemetic Medication Reflex [OM.PC] Stat Peripheral IV Insertion Adult [OM.PC] Stat - Assessment/Plan Last 24 Hours: My Active Orders 05/21/19 17:08 Peripheral IV Care [RC] . DIRECTED Sodium Chloride 0.9% [Saline Flush] 10 ml FLUSH ASDIRECTED PRN ED Antiemetic Medication Reflex [OM.PC] Stat Peripheral IV Insertion Adult [OM.PC] Stat
== END 2019-05-21 19:38 | disposition home or self-care (01) ==
LOC: JD.ED 16:46
DX: R11.2 Nausea with vomiting, unspecified (principal); R19.7 Diarrhea, unspecified; R10.9 Unspecified abdominal pain; I10 Essential (primary) hypertension; E11.40 Type 2 diabetes mellitus with diabetic neuropathy, unspecified; K21.9 Gastro-esophageal reflux disease without esophagitis; F41.9 Anxiety disorder, unspecified; F32.9 Major depressive disorder, single episode, unspecified; Z79.899 Other long term (current) drug therapy; Z88.1 Allergy status to other antibiotic agents; Z88.6 Allergy status to analgesic agent; Z87.891 Personal history of nicotine dependence
CPT/HCPCS: 36415; 74176; 80053; 81001; 83690; 85025; 96361; 96374; 96375; 96376; 99284; J1170; J2405; J7030

== ENCOUNTER 2019-06-04 08:45 | Day surgery (SDC) | payer BC ==
[~2019-06-04 08:45] MED LIST changes: +Lactated Ringers 1,000 ML IV SCH
[2019-06-04] MEDS ORDERED: Midazolam 1 MG/ML 2 ML SDV ONE ×2 (10:02→11:26)
--- NOTE | 2019-06-04 10:16 | PCM.PREANE ---
Preanesthetic Assessment - Anesthesia/Transfusion/Family Hx Anesthesia History: Prior Anesthesia Without Reaction Transfusion History: No Prior Transfusion(s) - Review of Systems General: Other (Recent weight loss of 20 pounds. ) Pulmonary: Cough (Dry cough, chronic. Environmental allergies seem to be the trigger. ) Cardiovascular: No Symptoms (Hypertension) Gastrointestinal: Abdominal Pain, Decreased Appetite Neurological: No Symptoms Other: Reports: Diabetes, Depression, Anxiety (Very anxious today. Requesting premedication for anxiety. ) - Physical Assessment NPO Status Date: 06/03/19 NPO Status Time: 21:30 Weight: 91 kg ASA Class: 2 Mental Status: Alert & Oriented x3 Airway Class: Mallampati = 2 Dentition: Reports: Missing Tooth/Teeth (Front removable. ) Thyro-Mental Finger Breadths: 1 Mouth Opening Finger Breadths: 3 ROM/Head Extension: Full Lungs: Clear to Auscultation, Normal Respiratory Effort Cardiovascular: Regular Rate, Regular Rhythm - Lab Values: Laboratory Last Values POC Glucose 96 mg/dL (70-105) 06/04/19 09:16 - Allergies Allergies/Adverse Reactions: Allergies Allergy/AdvReac Type Severity Reaction Status Date / Time clindamycin Allergy Hives Verified 06/03/19 15:26 morphine Allergy Hives Uncoded 06/03/19 15:26 - Anesthesia Plan Pre-Op Medication Ordered: Anxiolytic (Midazolam ) - Acknowledgements Anesthesia Type Planned: MAC Pt an Appropriate Candidate for the Planned Anesthesia: Yes Alternatives and Risks of Anesthesia Discussed w Pt/Guardian: Yes Pt/Guardian Understands and Agrees with Anesthesia Plan: Yes PreAnesthesia Questionnaire HEENT History: Reports: Allergic Rhinitis Cardiovascular History: Reports: High Cholesterol, Hypertension Respiratory History: Reports: Sleep Apnea Gastrointestinal History: Reports: GERD Genitourinary History: Reports: UTI, Recurrent, Other (See Below) Other Genitourinary History: gential warts 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 , , Other (See Below) Other OB/BYN History: thickened endometrium, post menopausal bleeding, endometrial hyperplasia, condyloma acuminatum, Right breast cyst drainage, , laparotomy Musculoskeletal History: Reports: Back Pain, Chronic, Fracture, Gout, Other ( See Below) Other Musculoskeletal History: right index finger mallet deformity, plantar fasciitis Neurological History: Reports: Neuropathy, Diabetic Other Neuro History: cerviclagia Psychiatric History: Reports: Anxiety, Depression Endocrine/Metabolic History: Reports: Diabetes, Type II, Obesity/BMI 30+ Hematologic History: Reports: None Immunologic History: Reports: None Oncologic (Cancer) History: Reports: None Dermatologic History: Reports: Other (See Below) Other Dermatologic History: lipoma excision, contusion to face, linear morphea, lipoma excison - Infectious Disease History Infectious Disease History: Reports: Chicken Pox, Measles, Mumps - Past Surgical History Head Surgeries/Procedures: Reports: None HEENT Surgical History: Reports: None Cardiovascular Surgical History: Reports: None Respiratory Surgical History: Reports: None GI Surgical History: Reports: Colonoscopy Female Surgical History: Reports: D&C, Hysterectomy Endocrine Surgical History: Reports: None Neurological Surgical History: Reports: None Musculoskeletal Surgical History: Reports: None Oncologic Surgical History: Reports: None Dermatological Surgical History: Reports: Other (See Below) - SUBSTANCE USE Smoking Status *Q: Former Smoker Recreational Drug Use History: No - HOME MEDS Home Medications: Home Meds Simvastatin [Zocor] 40 mg PO BEDTIME 12/26/16 [History] metFORMIN [Glucophage XR] 500 mg PO BID 12/26/16 [History] Pantoprazole [ProTONIX] 40 mg PO DAILY 10/02/17 [History] tiZANidine [Zanaflex] 4 mg PO BEDTIME 10/02/17 [History] traMADol [Ultram] 100 mg PO TID 10/02/17 [History] FLUoxetine HCl [Fluoxetine HCl] 40 mg PO DAILY 11/26/17 [History] ALPRAZolam [Xanax] 1 mg PO Q8H PRN 06/14/18 [History] oxyCODONE HCl/Acetaminophen [Oxycodone-Acetaminophen 5-325] 1 tab PO TID PRN [History] Allopurinol [Zyloprim] 100 mg PO DAILY 06/03/19 [History] Ketoconazole [Nizoral 2% Crm] 1 dose TOP BID 06/03/19 [History] Silver Sulfadiazine [Silvadene 1% Cream 20 GM] 1 dose TOP BID 06/03/19 [History] Tacrolimus [Protopic] 1 dose TOP BID 06/03/19 [History] amLODIPine Besylate [Norvasc] 10 mg PO DAILY 06/03/19 [History] - CURRENT (IN HOUSE) MEDS Current Meds: Current Medications Lactated Ringer's (Ringers, Lactated) 1,000 mls @ 125 mls/hr IV ASDIRECTED AP Stop: 06/04/19 23:00 Lidocaine/Sodium Bicarbonate (Buffered Lidocaine 1% In Ns 8.4%) 0.25 ml IDERM ONETIME PRN PRN Reason: Prior to IV Start Stop: 06/04/19 18:00 Sodium Chloride (Saline Flush) 10 ml FLUSH ASDIRECTED PRN PRN Reason: Keep Vein Open Stop: 06/04/19 18:00 Discontinued Medications Midazolam HCl (Versed 1 Mg/Ml) Confirm Administered Dose 2 mg .ROUTE .STK-MED ONE Stop: 06/04/19 10:03
[2019-06-04] MEDS ORDERED: Propofol 200 MG/20 ML SDV ONE ×2 (10:34)
[2019-06-04] MEDS ORDERED: fentaNYL 100 MCG/2 ML SDV ONE (10:35)
[2019-06-04] MEDS ORDERED: Lidocaine 1% 4 ML ONE (10:36)
--- NOTE | 2019-06-04 11:33 | PCM.OPNOTE ---
- General Post-Op/Procedure Note Date of Surgery/Procedure: 06/04/19 Operative Procedure(s): EGD and colonoscopy Findings: 1. Gastritis 2. Gastric polyp 3. Ascending colon polyp 4. Transverse colon polyp 5. Sigmoid colon polyp 6. Rectal polyp Pre Op Diagnosis: abdominal pain and diarrhea Post-Op Diagnosis: same Anesthesia Technique: EWELINA Primary Surgeon: Puja Laboy Anesthesia Provider: Alex Duenas Pathology: 1. Gastric antrum 2. Gastric polyp biopsy 3. Ascending colon polyp 4. Ascending colon biopsies 5. Transverse colon polyp 6. Transverse colon biopsies 7. Descending colon biopsies 8. Sigmoid colon biopsies 9. Sigmoid colon polyp 10. Rectal biopsies 11. Rectal polyp Output, Urine Amount: 0 EBL in mLs: 0 Complications: none apparent Condition: Good
--- NOTE | 2019-06-04 11:41 | PCM.PRNOTE ---
- Free Text/Narrative Note: Operative Report Date of Procedure: June 04 2019 Pre Op Diagnosis: Abdominal pain and diarrhea Post-Op Diagnosis: Same Operative Procedures: 1. EGD with biopsy 2. Colonoscopy to the cecum with biopsy Primary Surgeon: Puja Laboy MD Anesthesia Provider: Alex Duenas CRNA Anesthesia Technique: MAC IV Fluid Replacement, Intraop: See anesthesia report Output, Urine Amount: 0cc EBL in mLs: 0cc Findings: 1. Gastritis 2. Gastric polyp 3. Ascending colon polyp 4. Transverse colon polyp 5. Sigmoid colon polyp 6. Rectal polyp 7. Diverticulosis Specimens: 1. Gastric antrum 2. Gastric polyp biopsy 3. Ascending colon polyp 4. Ascending colon biopsies 5. Transverse colon polyp 6. Transverse colon biopsies 7. Descending colon biopsies 8. Sigmoid colon biopsies 9. Sigmoid colon polyp 10. Rectal biopsies 11. Rectal polyp Drain/Tubes: None Indication: The patient is a 54-year-old lady who presented to the clinic with complaints of abdominal pain and multiple bouts of diarrhea per day. She had stool studies completed prior to my evaluation in clinic which were not revealing for any pathology. The patient was consented for a diagnostic EGD and colonoscopy. Risks of bleeding, and perforation were discussed, and the patient agreed to the risks and wished to proceed. Description of the procedure: The patient was taken back to the endoscopy suite, and placed in the left lateral decubitus position. A bite block was placed. The patient was sedated with MAC anesthesia. The Olympus video endoscope was inserted into the oropharynx and guided under direct vision into the esophagus, stomach, and duodenum. The duodenal bulb and second portion of the duodenum were unremarkable. The scope was withdrawn to the stomach. The gastric antrum was inspected and cold biopsy forceps were used to take tissue samples for H. pylori. There was gastritis in the antrum and the body of the stomach. The scope was retroflexed. There was bilious fluid in the stomach which was suctioned. No erosions or ulcers were noted. The scope was withdrawn to the esophagus. No Barretts esophagus changes were noted. The endoscope was then withdrawn Next, anorectal examination was performed. No lesions, masses or hemorrhoids were noted externally or on palpation. The scope was placed into the rectum and advanced to cecum. Upon reaching the cecum, and the patients cecum was entered. There was minimal tortuosity of the colon. The ileocecal valve was well visualized and the appendiceal orifice identified. At this point, the scope was slowly withdrawn, paying attention to the mucosa. The patient had good bowel prep, 85-90% of the mucosa was visible after washing and suctioning. Colon polyps were noted. A 3 mm flat polyp was seen in the ascending colon removed with cold biopsy forceps. A transverse colon polyp ring 2 to 3 mm and flat was also noted moved with cold biopsy forceps. There were multiple hyperplastic appearing polyps in the sigmoid colon and rectum. A polyp was removed in each of these locations measuring 3 mm and flat. They were removed using cold biopsy forceps. The remaining polyps were not removed due to their benign hyperplastic appearance. Biopsies were taken in the ascending colon, transverse colon, sigmoid colon, descending colon, and rectum using cold biopsy forceps. This was to evaluate the mucosa for history of diarrhea. He had scattered diverticula in the transverse descending and sigmoid colon. There was no evidence of inflammation. In the rectum, scope was retroflexed and some hemorrhoidal tissue was noted. The scope was placed back in the lumen and excess air was aspirated. The scope was removed. The patient tolerated the procedure very well. Complications: None apparent Condition: The patient was transported to PACU in stable condition. Puja Laboy MD General Surgery
--- NOTE | 2019-06-04 11:42 | PCM48HPAN ---
Post Anesthesia Note - EVALUATION WITHIN 48HRS OF ANESTHETIC Vital Signs in Normal Range: Yes Patient Participated in Evaluation: Yes Respiratory Function Stable: Yes Airway Patent: Yes Cardiovascular Function Stable: Yes Hydration Status Stable: Yes Pain Control Satisfactory: Yes Nausea and Vomiting Control Satisfactory: Yes Mental Status Recovered: Yes Vital Signs: Last Vital Signs Temp 97.9 F 06/04/19 11:29 Pulse 76 06/04/19 11:40 Resp 20 06/04/19 11:40 BP 156/100 H 06/04/19 11:40 Pulse Ox 96 06/04/19 11:40
[2019-06-04 12:00] VITALS: BP 147/81; PULSE 87
== END 2019-06-04 12:24 | disposition home or self-care (01) ==
LOC: JD.SDS 08:45
PROVIDERS: ATTEND Surgery
DX: D12.2 Benign neoplasm of ascending colon (principal); K29.70 Gastritis, unspecified, without bleeding; K31.7 Polyp of stomach and duodenum; K63.5 Polyp of colon; K62.1 Rectal polyp; M10.9 Gout, unspecified; I10 Essential (primary) hypertension; F32.9 Major depressive disorder, single episode, unspecified; F41.9 Anxiety disorder, unspecified; E78.00 Pure hypercholesterolemia, unspecified; K21.9 Gastro-esophageal reflux disease without esophagitis; E11.40 Type 2 diabetes mellitus with diabetic neuropathy, unspecified; E66.9 Obesity, unspecified; Z68.35 Body mass index [BMI] 35.0-35.9, adult; Z79.899 Other long term (current) drug therapy; Z79.84 Long term (current) use of oral hypoglycemic drugs; Z88.1 Allergy status to other antibiotic agents; Z88.5 Allergy status to narcotic agent; Z87.891 Personal history of nicotine dependence
CPT/HCPCS: 43239; 45380; 82962; J2001; J2250; J2704; J3010; J7120; 00813

== ENCOUNTER 2019-10-14 13:09 | Emergency (ER) | payer BC, OTHER ==
[2019-10-14] MEDS ORDERED: Ketorolac 60 MG/2 ML SDV IM ONE (13:56)
[2019-10-14] MEDS ORDERED: Ondansetron 4 MG Tab.DIS PO ONE (13:56)
[2019-10-14] MEDS ORDERED: HYDROmorphone 1 MG/ML Syringe IM ONE (13:56)
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
--- NOTE | 2019-10-14 15:21 | CR ---
Chest and bilateral ribs: Frontal view of the chest was obtained as well as additional 4 views of the ribs. Comparison: Prior chest x-ray of 11/30/17. Heart size and mediastinum are normal. Lungs are clear with no acute parenchymal change. No discrete rib abnormality is appreciated. Impression: 1. Nothing acute is seen on frontal chest x-ray. 2. No discrete rib abnormality is seen. Diagnostic code #1 This report was dictated in MDT
--- NOTE | 2019-10-14 15:23 | CR ---
Thoracic spine: AP and lateral views of the thoracic spine were obtained. Comparison: No prior thoracic spine exam. Vertebral body heights and disc spaces are fairly well preserved. Pedicles are intact. No discrete fracture or abnormal subluxation is seen. Mild degenerative change is partially visualized within the cervical spine. Impression: 1. Mild degenerative change is partially visualized within cervical spine. 2. No discrete abnormality appreciated on lumbar spine study. Diagnostic code #2 This report was dictated in MDT
--- NOTE | 2019-10-14 16:28 | CR ---
Lumbar spine: AP and lateral views lumbar spine were obtained. Comparison: No previous lumbar spine imaging is available. Minimal spondylolisthesis at L4-5 is likely due to degenerative change within the apophyseal joints. Moderate disc space narrowing at L5-S1. Minimal posterior disc space narrowing at L3-4. Other disc spaces are maintained. Vertebral body heights are maintained. Minimal scattered endplate osteophytes are seen. Pedicles as well as visualized transverse and spinous processes are intact. Impression: 1. Mild degenerative change as described above. Diagnostic code #2 This report was dictated in MDT
--- NOTE | 2019-10-14 16:28 | CR ---
Cervical spine: AP, lateral, swimmer's and odontoid views of cervical spine were obtained. Comparison: No prior cervical spine imaging. Moderate disc space narrowing is seen at C4-5 and C5-6. Anterior osteophyte are s seen at both these levels. Minimal posterior ridging is also seen at both these levels. Prevertebral soft tissues are normal. Mild degenerative change within the uncovertebral joints is noted at C4-5 and C5-6. No subluxation or fracture is seen. Slight straightening of the normal cervical curve is seen most likely degenerative in etiology. Impression: 1. Degenerative change as noted above. 2. Nothing acute is appreciated on plain film cervical spine exam. Diagnostic code #2 This report was dictated in MDT
[2019-10-14 16:50] VITALS: BP 131/76; PULSE 79
== END 2019-10-14 16:52 | disposition home or self-care (01) ==
LOC: JD.ED 13:09
DX: S29.011A Strain of muscle and tendon of front wall of thorax, initial encounter (principal); S39.012A Strain of muscle, fascia and tendon of lower back, initial encounter; S29.012A Strain of muscle and tendon of back wall of thorax, initial encounter; S96.911A Strain of unspecified muscle and tendon at ankle and foot level, right foot, initial encounter; S96.912A Strain of unspecified muscle and tendon at ankle and foot level, left foot, initial encounter; S16.1XXA Strain of muscle, fascia and tendon at neck level, initial encounter; I10 Essential (primary) hypertension; K21.9 Gastro-esophageal reflux disease without esophagitis; E11.40 Type 2 diabetes mellitus with diabetic neuropathy, unspecified; F41.9 Anxiety disorder, unspecified; F32.9 Major depressive disorder, single episode, unspecified; E66.9 Obesity, unspecified; Z68.32 Body mass index [BMI] 32.0-32.9, adult; Z88.1 Allergy status to other antibiotic agents; Z88.5 Allergy status to narcotic agent; Z79.899 Other long term (current) drug therapy; X58.XXXA Exposure to other specified factors, initial encounter
CPT/HCPCS: 36415; 71111; 72040; 72070; 72100; 80053; 84484; 85025; 96372; 99285; A9270; J1170; J1885

== ENCOUNTER 2019-10-24 09:28 | Emergency (ER) | payer MEDICAID, OTHER ==
[2019-10-24] MEDS ORDERED: Ondansetron 4 MG/2 ML SDV IVPUSH ONE ×2 (10:04→10:30)
--- NOTE | 2019-10-24 10:06 | EDM.PDOC ---
ED HPI GENERAL MEDICAL PROBLEM - General Chief Complaint: Chest Pain Stated Complaint: CHEST PAIN Time Seen by Provider: 10/24/19 10:03 Source of Information: Reports: Patient History Limitations: Reports: No Limitations - History of Present Illness INITIAL COMMENTS - FREE TEXT/NARRATIVE: 54-year-old female presents to the ED with a host of complaints. Mostly that of central chest pressure pain discomfort radiating through to her back. Patient has a trilevel spine disease. They are contemplating fusion of her lumbar spine due to degenerative disc disease. She is concerned that she may be having heart related issues today. She has mild associated nausea. No vomiting. She has not taken her pain medications which is tramadol and Vicodin first thing in the morning. She has also on Xanax 1 mg 3 times daily which she has not yet taken. Has known hist no known history of heart disease but her mother at 55 from an [place]. She did quit smoking 5 years ago. History suggest that she does have gastroesophageal reflux disease. She really noticed any worse as of late. He is scheduled to see guard captain next week in [place] to clear her for potential surgery. She will also be getting an opinion about back surgery from Dr. Ruiz. Onset: Other (Has been having intermittent chest pains for the better part of a week.) Duration: Day(s):, Intermittent, Waxing/Waning Location: Reports: Chest (Trolled chest pain rating underneath her left breast and around to the left scapular area.) Quality: Reports: Sharp ( Tends to be more sharp and stabbing.), Stabbing Severity: Moderate Improves with: Reports: None Worsens with: Reports: Other, Movement (She thinks it is worse with deep breathing and coughing and certain movements.) Context: Reports: Other (Trinity is occurrence.). Denies: Activity, Exercise, Lifting, Sick Contact, Trauma Associated Symptoms: Reports: Cough (Nausea without vomiting and productive), Loss of Appetite (Anxiety), Malaise, Nausea/Vomiting, Shortness of Breath, Other Treatments NURSE TECH: Reports: Other (see below) (Vicodin and tramadol.) Chest Pain Score (Numeric/FACES): 8 - Related Data Allergies Allergy/AdvReac Type Severity Reaction Status Date / Time clindamycin Allergy Hives Verified 10/24/19 09:44 morphine Allergy Hives Uncoded 10/14/19 13:30 Home Meds: Home Meds Pantoprazole [ProTONIX] 40 mg PO DAILY 10/02/17 [History] traMADol [Ultram] 100 mg PO TID 10/02/17 [History] ALPRAZolam [Xanax] 1 mg PO Q8H PRN 06/14/18 [History] amLODIPine Besylate [Norvasc] 10 mg PO DAILY 06/03/19 [History] Acetaminophen/HYDROcodone [[place] 325-5 MG] 1 tab PO Q4H PRN #5 tablet 10/14/19 [Rx] FLUoxetine [PROzac] 80 mg PO DAILY 10/14/19 [History] Naproxen [Naprosyn] 500 mg PO Q12HR 5 Days #10 tab 10/14/19 [Rx] Past Medical History HEENT History: Reports: Allergic Rhinitis Cardiovascular History: Reports: High Cholesterol, Hypertension Respiratory History: Reports: Sleep Apnea Gastrointestinal History: Reports: GERD Genitourinary History: Reports: UTI, Recurrent, Other (See Below) Other Genitourinary History: gential warts [employer]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: 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 , , Other (See Below) 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: thickened endometrium, post menopausal bleeding, endometrial hyperplasia, condyloma acuminatum, Right breast cyst drainage, , laparotomy Musculoskeletal History: Reports: Back Pain, Chronic, Fracture, Gout, Other (See Below) Other Musculoskeletal History: right index finger mallet deformity, plantar fasciitis Neurological History: Reports: Neuropathy, Diabetic Other Neuro History: cerviclagia Psychiatric History: Reports: Anxiety, Depression Endocrine/Metabolic History: Reports: Diabetes, Type II, Obesity/BMI 30+ Hematologic History: Reports: None Immunologic History: Reports: None Oncologic (Cancer) History: Reports: None Dermatologic History: Reports: Other (See Below) Other Dermatologic History: lipoma excision, contusion to face, linear morphea, lipoma excison - Infectious Disease History Infectious Disease History: Reports: Chicken Pox, Measles, Mumps - Past Surgical History Head Surgeries/Procedures: Reports: None Cardiovascular Surgical History: Reports: None Respiratory Surgical History: Reports: None GI Surgical History: Reports: Colonoscopy Female Surgical History: Reports: D&C, Hysterectomy Endocrine Surgical History: Reports: None Neurological Surgical History: Reports: None Musculoskeletal Surgical History: Reports: None Oncologic Surgical History: Reports: None Dermatological Surgical History: Reports: Other (See Below) Social & Family History - Family History Family Medical History: Noncontributory - Tobacco Use Smoking Status *Q: Former Smoker Used Tobacco, but Quit: Yes Month/Year Tobacco Last Used: 10 yrs - Caffeine Use Caffeine Use: Reports: Coffee, Energy Drinks, Soda - Living Situation & Occupation Living situation: Reports: , Alone Occupation: Employed ([employer]) ED ROS GENERAL - Review of Systems Review Of Systems: See Below Constitutional: Reports: Malaise, Weakness, Fatigue, Decreased Appetite. Denies: Fever, Chills HEENT: Reports: No Symptoms Respiratory: Reports: Shortness of Breath, Pleuritic Chest Pain, Cough. Denies: Wheezing, Sputum, Hemoptysis (Intermittent nonproductive cough) Cardiovascular: Reports: Chest Pain, Blood Pressure Problem, Dyspnea on Exertion (Claims she has intermittent edema of her lower extremities none found today. Chronically), Edema. Denies: Claudication, Lightheadedness, Orthopnea Endocrine: Reports: Fatigue (Has fibromyalgia syndrome.) GI/Abdominal: Reports: Other (Tubal bowel syndrome.) : Reports: Frequency Musculoskeletal: Reports: Back Pain, Joint Pain Skin: Reports: No Symptoms Neurological: Reports: Dizziness, Headache, Weakness Psychiatric: Reports: Anxiety, Depression, Other (Disrupted sleep pattern) Hematologic/Lymphatic: Reports: No Symptoms Immunologic: Reports: No Symptoms ED EXAM, GENERAL - Physical Exam Exam: See Below Exam Limited By: No Limitations General Appearance: Alert, Anxious, Mild Distress, Other (Temperature is 36.6. Heart rate 85 and sinus respiratory of 16 O2 sats 95% room air) Eye Exam: Bilateral Eye: Normal Inspection, PERRL Throat/Mouth: Other Head: Atraumatic, Normocephalic (Is mildly dry and coated.), Other Neck: Normal Inspection (No outward signs of head or facial trauma.), Limited Range of Motion, Tender Lateral (Crepitus on lateral rotation and pain.). No: Lymphadenopathy (L) ( Bilateral aspects of the cervical spine.), Lymphadenopathy (R), Thyromegaly Respiratory/Chest: No Respiratory Distress, Lungs Clear, Normal Breath Sounds, Other Cardiovascular: Normal Peripheral Pulses, Regular Rate, Rhythm, No Edema, No Gallop, No Murmur (Wall tenderness ribs 2-6 bilaterally midclavicular line), No Rub Peripheral Pulses: 2+: Posterior Tibial (L), Posterior Tibial (R), Dorsalis Pedis (L), Dorsalis Pedis (R), 3+: Carotid (L), Carotid (R) GI/Abdominal: Normal Bowel Sounds, Soft, No Organomegaly, No Mass, Pelvis Stable, Tender Back Exam: Decreased Range of Motion, Muscle Spasm, Vertebral Tenderness, Other (Severe scoliosis of the thoracic spine with pain on palpation throughout the thoracic and lumbar spine musculature he apparently is contemplating having lumbar spine fusion procedure due to degenerative disc disease.) Extremities: Normal Inspection, Normal Range of Motion, Non-Tender, No Pedal Edema Neurological: Alert, Oriented, CN II-XII Intact, Normal Cognition, Normal Gait Psychiatric: Anxious Skin Exam: Warm, Dry, Intact, Normal Color, No Rash EKG INTERPRETATION EKG Date: 10/24/19 Time: 09:38 Rhythm: NSR Rate (Beats/Min): 87 [place]: Normal P-Wave: Present QRS: Other (Initial poor R wave progression. Tall R waves in lead I suggest like lead left ventricular appear to be pattern.) ST-T: Normal QT: Prolonged (QTC is mildly prolonged.) Course - Vital Signs Last Recorded V/S: Last Vital Signs Temp 36.6 C 10/24/19 12:15 Pulse 80 10/24/19 12:27 Resp 16 10/24/19 12:27 BP 125/78 10/24/19 12:27 Pulse Ox 94 L 10/24/19 12:27 - Orders/Labs/Meds Labs: Laboratory Tests 10/24/19 10/24/19 10/24/19 Range/Units 09:50 09:50 09:50 WBC 9.24 (3.98-10.04) K/mm3 RBC 4.42 (3.98-5.22) M/mm3 Hgb 13.2 (11.2-15.7) gm/dl Hct 40.7 (34.1-44.9) % MCV 92.1 (79.4-94.8) fl MCH 29.9 (25.6-32.2) pg MCHC 32.4 (32.2-35.5) g/dl RDW Std Deviation 46.5 H (36.4-46.3) fL Plt Count 404 H (182-369) K/mm3 MPV 8.5 L (9.4-12.3) fl Neut % (Auto) 67.4 (34.0-71.1) % Lymph % (Auto) 22.5 (19.3-51.7) % Wayne % (Auto) 6.2 (4.7-12.5) % Eos % (Auto) 3.0 (0.7-5.8) Baso % (Auto) 0.6 (0.1-1.2) % Neut # (Auto) 6.22 H (1.56-6.13) K/mm3 Lymph # (Auto) 2.08 (1.18-3.74) K/mm3 Wayne # (Auto) 0.57 H (0.24-0.36) K/mm3 Eos # (Auto) 0.28 (0.04-0.36) K/mm3 Baso # (Auto) 0.06 (0.01-0.08) K/mm3 PT 10.3 (9.7-12.0) SECONDS INR 0.94 APTT (22-31) SECONDS Sodium 140 (136-145) mEq/L Potassium 3.9 (3.5-5.1) mEq/L Chloride 103 (98-107) mEq/L Carbon Dioxide 28 (21-32) mEq/L Anion Gap 12.9 (5-15) BUN 8 (7-18) mg/dL Creatinine 0.8 (0.55-1.02) mg/dL Est Cr Clr Drug Dosing 70.23 mL/min Estimated GFR (MDRD) > 60 (>60) mL/min BUN/Creatinine Ratio 10.0 L (14-18) Glucose 128 H (74-106) mg/dL Calcium 9.2 (8.5-10.1) mg/dL Magnesium (1.8-2.4) mg/dl Total Bilirubin 0.3 (0.2-1.0) mg/dL AST 21 (15-37) U/L ALT 20 (14-59) U/L Alkaline Phosphatase 151 H (46-116) U/L CK-MB (CK-2) (0-3.6) ng/ml Troponin I < 0.017 (0.00-0.056) ng/mL C-Reactive Protein (<1.0) mg/dL NT-Pro-B Natriuret Pep (0-125) pg/mL Total Protein 7.6 (6.4-8.2) g/dl Albumin 3.5 (3.4-5.0) g/dl Globulin 4.1 gm/dL Albumin/Globulin Ratio 0.9 L (1-2) Urine Color (Yellow) Urine Appearance (Clear) Urine pH (5.0-8.0) Ur Specific [place] (1.005-1.030) Urine Protein (Negative) Urine Glucose (UA) (Negative) Urine Ketones (Negative) Urine Occult Blood (Negative) Urine Nitrite (Negative) Urine Bilirubin (Negative) Urine Urobilinogen (0.2-1.0) Ur Leukocyte Esterase (Negative) Urine RBC (0-5) /hpf Urine WBC (0-5) /hpf Ur Squamous Epith Cells (0-5) /hpf Urine Bacteria (FEW) /hpf Urine Mucus (FEW) /hpf 10/24/19 10/24/19 10/24/19 Range/Units 09:50 09:50 09:50 WBC (3.98-10.04) K/mm3 RBC (3.98-5.22) M/mm3 Hgb (11.2-15.7) gm/dl Hct (34.1-44.9) % MCV (79.4-94.8) fl MCH (25.6-32.2) pg MCHC (32.2-35.5) g/dl RDW Std Deviation (36.4-46.3) fL Plt Count (182-369) K/mm3 MPV (9.4-12.3) fl Neut % (Auto) (34.0-71.1) % Lymph % (Auto) (19.3-51.7) % Wayne % (Auto) (4.7-12.5) % Eos % (Auto) (0.7-5.8) Baso % (Auto) (0.1-1.2) % Neut # (Auto) (1.56-6.13) K/mm3 Lymph # (Auto) (1.18-3.74) K/mm3 Wayne # (Auto) (0.24-0.36) K/mm3 Eos # (Auto) (0.04-0.36) K/mm3 Baso # (Auto) (0.01-0.08) K/mm3 PT (9.7-12.0) SECONDS INR APTT 29 (22-31) SECONDS Sodium (136-145) mEq/L Potassium (3.5-5.1) mEq/L Chloride (98-107) mEq/L Carbon Dioxide (21-32) mEq/L Anion Gap (5-15) BUN (7-18) mg/dL Creatinine (0.55-1.02) mg/dL Est Cr Clr Drug Dosing mL/min Estimated GFR (MDRD) (>60) mL/min BUN/Creatinine Ratio (14-18) Glucose (74-106) mg/dL Calcium (8.5-10.1) mg/dL Magnesium 2.1 (1.8-2.4) mg/dl Total Bilirubin (0.2-1.0) mg/dL AST (15-37) U/L ALT (14-59) U/L Alkaline Phosphatase (46-116) U/L CK-MB (CK-2) 0.5 (0-3.6) ng/ml Troponin I (0.00-0.056) ng/mL C-Reactive Protein 2.1 H* (<1.0) mg/dL NT-Pro-B Natriuret Pep 57 (0-125) pg/mL Total Protein (6.4-8.2) g/dl Albumin (3.4-5.0) g/dl Globulin gm/dL Albumin/Globulin Ratio (1-2) Urine Color (Yellow) Urine Appearance (Clear) Urine pH (5.0-8.0) Ur Specific [place] (1.005-1.030) Urine Protein (Negative) Urine Glucose (UA) (Negative) Urine Ketones (Negative) Urine Occult Blood (Negative) Urine Nitrite (Negative) Urine Bilirubin (Negative) Urine Urobilinogen (0.2-1.0) Ur Leukocyte Esterase (Negative) Urine RBC (0-5) /hpf Urine WBC (0-5) /hpf Ur Squamous Epith Cells (0-5) /hpf Urine Bacteria (FEW) /hpf Urine Mucus (FEW) /hpf 07/10/20 Range/Units 12:08 WBC (3.98-10.04) K/mm3 RBC (3.98-5.22) M/mm3 Hgb (11.2-15.7) gm/dl Hct (34.1-44.9) % MCV (79.4-94.8) fl MCH (25.6-32.2) pg MCHC (32.2-35.5) g/dl RDW Std Deviation (36.4-46.3) fL Plt Count (182-369) K/mm3 MPV (9.4-12.3) fl Neut % (Auto) (34.0-71.1) % Lymph % (Auto) (19.3-51.7) % Wayne % (Auto) (4.7-12.5) % Eos % (Auto) (0.7-5.8) Baso % (Auto) (0.1-1.2) % Neut # (Auto) (1.56-6.13) K/mm3 Lymph # (Auto) (1.18-3.74) K/mm3 Wayne # (Auto) (0.24-0.36) K/mm3 Eos # (Auto) (0.04-0.36) K/mm3 Baso # (Auto) (0.01-0.08) K/mm3 PT (9.7-12.0) SECONDS INR APTT (22-31) SECONDS Sodium (136-145) mEq/L Potassium (3.5-5.1) mEq/L Chloride (98-107) mEq/L Carbon Dioxide (21-32) mEq/L Anion Gap (5-15) BUN (7-18) mg/dL Creatinine (0.55-1.02) mg/dL Est Cr Clr Drug Dosing mL/min Estimated GFR (MDRD) (>60) mL/min BUN/Creatinine Ratio (14-18) Glucose (74-106) mg/dL Calcium (8.5-10.1) mg/dL Magnesium (1.8-2.4) mg/dl Total Bilirubin (0.2-1.0) mg/dL AST (15-37) U/L ALT (14-59) U/L Alkaline Phosphatase (46-116) U/L CK-MB (CK-2) (0-3.6) ng/ml Troponin I (0.00-0.056) ng/mL C-Reactive Protein (<1.0) mg/dL NT-Pro-B Natriuret Pep (0-125) pg/mL Total Protein (6.4-8.2) g/dl Albumin (3.4-5.0) g/dl Globulin gm/dL Albumin/Globulin Ratio (1-2) Urine Color Light yellow (Yellow) Urine Appearance Clear (Clear) Urine pH 7.5 (5.0-8.0) Ur Specific [place] 1.020 (1.005-1.030) Urine Protein Negative (Negative) Urine Glucose (UA) Negative (Negative) Urine Ketones Negative (Negative) Urine Occult Blood Negative (Negative) Urine Nitrite Negative (Negative) Urine Bilirubin Negative (Negative) Urine Urobilinogen 0.2 (0.2-1.0) Ur Leukocyte Esterase Negative (Negative) Urine RBC Not seen (0-5) /hpf Urine WBC Not seen (0-5) /hpf Ur Squamous Epith Cells Not seen (0-5) /hpf Urine Bacteria Not seen (FEW) /hpf Urine Mucus Rare (FEW) /hpf Meds: Medications Discontinued Medications Generic Name Dose Route Start Last Admin Trade Name Eddieq PRN Reason Stop Dose Admin Aspirin 324 mg 10/24/19 10:32 10/24/19 11:06 Aspirin PO 10/24/19 10:33 324 mg ONETIME ONE Administration Hydromorphone HCl 1 mg 10/24/19 10:30 10/24/19 11:07 Dilaudid IVPUSH 10/24/19 10:31 1 mg ONETIME ONE Administration Hydromorphone HCl 1 mg 10/24/19 12:05 10/24/19 12:14 Dilaudid IVPUSH 10/24/19 12:06 1 mg ONETIME ONE Administration Sodium Chloride 1,000 mls @ 125 mls/hr 10/24/19 10:15 10/24/19 10:18 Normal Saline IV 125 mls/hr ASDIRECTED AP Administration Dextrose/Sodium Chloride 1,000 mls @ 999 mls/hr 10/24/19 10:30 Dextrose 5%-Normal Saline IV ASDIRECTED AP Ondansetron HCl 4 mg 10/24/19 10:04 10/24/19 10:16 Zofran IVPUSH 10/24/19 10:05 4 mg ONETIME ONE Administration Ondansetron HCl 4 mg 10/24/19 10:30 10/24/19 11:10 Zofran IVPUSH 10/24/19 10:31 Not Given ONETIME ONE - Radiology Interpretation Free Text/Narrative:: 54-year-old female presents to the ED with concerns about having a heart attack. She is having intermittent chest pains off and on for the last week. Worse today. Started when she awoke. Seems to be worse with certain movements and travels along underneath her left breast and towards her left infraclavicular area. Pain is sharp and stabbing and appears to be musculoskeletal in origin. She has no known heart disease. She is scheduled for cardiology appointment next week in [place] in terms of her preoperative examination for having major back surgery with rodding of her thoracic spine. She had a Lexiscan study performed within the last week or 2 and suggested that she may have some ischemic problems. Therefore going to require an angiogram preoperatively. Mother at age 54 from [place] which scares her good deal. Clinically I think she needs pain management as she has not taken her tramadol or Vicodin yet this morning. She is also very anxious. She will take her Xanax 1 mg p.o. from her own medications this morning. Given Dilaudid 1 mg IV. IV will be normal saline 150 mils per hour. Routine labs including cardiac markers and chest x-ray ECG to be obtained. - Re-Assessments/Exams Free Text/Narrative Re-Assessment/Exam: 10/24/19 11:05 White Count is 9.24 with 67% neutrophils on the auto differential. Hemoglobin is 13.2 with hematocrit of 40.7. Platelet count is slightly elevated 404,000. PT is 10.3 with an INR of 0.94. PTT is 29. Sodium 140 with a potassium of 3.9. Chloride 103 with a bicarb of 28. Anion gap is 12.9. BUN is 8 with a creatinine of 0.8. GFR is greater than 60. Glucose is 128. Calcium is 9.2 magnesium is 2.1. Liver function normal. Alk phosphatase slightly elevated at 151. CK-MB fraction 0.5. Troponin I less than 0.017. C- reactive protein is 2.1. BNP is 57 total protein 7.6 albumin fraction 3.5 10/24/19 12:00 chest x-ray done portably is revealing a normal heart size and mediastinum. Lungs are clear with no acute parenchymal change no bony changes appreciated. 10/24/19 12:07 patient reassured that there is no evidence of heart related illness. I suspect the pain is musculoskeletal in origin. I am going to give her another injection of Dilaudid 1 mg IV for pain relief since her back is so bad today. She then will be catching a ride home in a taxi. He was re assured that current pain is not heart related. Due to mildly positive Salgado sign and right upper quadrant abdominal tenderness on examination I will have her booked for an outpatient gall bladder ultrasound since she ate this morning already. Requisition sent to radiology. Departure - Departure Time of Disposition: 12:07 Disposition: Home, Self-Care 01 Condition: Fair Clinical Impression: Non-cardiac chest pain, Chest wall pain, Fibromyalgia syndrome Degenerative arthritis of lumbar spine Qualifiers: Spinal osteoarthritis complication: with myelopathy Qualified Code(s): M47.16 - Other spondylosis with myelopathy, lumbar region Instructions: Chest Wall Pain, [id number] Referrals: Louisa Mohamud NP [Primary Care Provider] - Forms: ED Department Discharge Additional Instructions: Evaluation in the emergency room today carried out due to intermittent chest pains primarily central chest in the left precordium under the left breast rating into the left back under your shoulder blade. This pain is been coming and going for the better part of a week or more. Was worse this morning upon getting up. All the investigations done through the ED today are negative for any heart related illness. Cardiac markers are normal. Chest x-ray is within normal limits. No clinical evidence of gallbladder disease but I would suggest having a gallbladder ultrasound performed as an outpatient I will have the x-ray department call you with the date and time to come in and have this done next week. Sling low back pain due to degenerative arthritis. I suspect current chest pain syndrome is musculoskeletal in origin as well. Saved 2 doses of Dilaudid 1 mg IV in the ED for acute pain relief. You may continue your home medications for pain and anxiety as before. Sepsis Event Note (ED) - Evaluation Sepsis Screening Result: No Definite Risk - Focused Exam Vital Signs: Vital Signs Temp Pulse Resp BP Pulse Ox 10/24/19 12:27 80 16 125/78 94 L 10/24/19 12:15 36.6 C 86 16 140/79 99 10/24/19 09:41 36.6 C 85 16 148/90 H 95
[2019-10-24] MEDS ORDERED: Sodium Chloride 0.9% 1,000 ML IV SCH (10:15)
[2019-10-24] MEDS ORDERED: Dextrose 5%-0.9% NaCl 1,000 ML IV SCH (10:30)
[2019-10-24] MEDS ORDERED: HYDROmorphone 1 MG/ML Syringe IVPUSH ONE ×2 (10:30→12:05)
[2019-10-24] MEDS ORDERED: Aspirin 81 MG Tab.Chew PO ONE (10:32)
--- NOTE | 2019-10-24 11:03 | CR ---
Chest: AP view of the chest was obtained. Comparison: Prior chest x-ray of 11/30/17. Heart size and mediastinum are normal. Lungs are clear with no acute parenchymal change. Bony structures are grossly intact. Impression: 1. Nothing acute is seen on frontal chest x-ray. Diagnostic code #1 This report was dictated in MDT
[2019-10-24 12:37] VITALS: BP 125/78; PULSE 80
== END 2019-10-24 12:35 | disposition home or self-care (01) ==
LOC: JD.ED 09:28
DX: R07.89 Other chest pain (principal); M79.7 Fibromyalgia; M41.85 Other forms of scoliosis, thoracolumbar region; R11.2 Nausea with vomiting, unspecified; K21.9 Gastro-esophageal reflux disease without esophagitis; I10 Essential (primary) hypertension; E11.40 Type 2 diabetes mellitus with diabetic neuropathy, unspecified; E66.9 Obesity, unspecified; Z68.34 Body mass index [BMI] 34.0-34.9, adult; Z88.5 Allergy status to narcotic agent; Z88.1 Allergy status to other antibiotic agents; Z79.899 Other long term (current) drug therapy; Z87.891 Personal history of nicotine dependence
CPT/HCPCS: 36415; 71045; 80053; 81001; 82553; 83735; 83880; 84484; 85025; 85610; 85730; 86140; 93005; 96361; 96374; 96375; 96376; 99285; A9270; J1170; J2405; J7030; 93010; 99284

== ENCOUNTER 2019-11-15 19:29 | Emergency (ER) | payer MEDICAID ==
[2019-11-15 19:42] VITALS: BP 152/69; PULSE 97
--- NOTE | 2019-11-15 20:07 | EDM.PDOC ---
ED HPI GENERAL MEDICAL PROBLEM - General Chief Complaint: Lower Extremity Injury/Pain Stated Complaint: left leg pain keeps falling found patterson on vag Time Seen by Provider: 11/15/19 19:40 Source of Information: Reports: Patient History Limitations: Reports: No Limitations - History of Present Illness INITIAL COMMENTS - FREE TEXT/NARRATIVE: Ms. Alejandre is a pleasant 54-year-old woman with a past medical history significant for lumbar stenosis, currently scheduled for a lumbar fusion on 11/24/2019, who now presents the ED stating that her left lower extremity "gave out" around 18:00, causing her to fall onto her left buttock. She presents to the ED with pain to her upper left buttock, but denies any other injuries. She denies left knee or leg pain. She states that she did not strike her head, and there was no loss of consciousness. The patient is also reporting vaginal discomfort. She states that she had sexual intercourse 4 days ago, after which she had vaginal bleeding, which has since turned into spotting. She has been experiencing 4 days of vaginal discomfort, but is concerned that she may have a leech in her vagina, as she went to a bustos earlier today and discovered a leech on her buttock. Here in the ED, the patient's initial BP is found to be mildly elevated at 152/69, otherwise, she is hemodynamically stable, afebrile, saturating 95% on room air. Other than her left buttock pain and vaginal discomfort, the patient denies recent fever, chills, sore throat, ear pain, nasal or sinus congestion, cough, dyspnea, chest pain, palpitations, nausea, vomiting, constipation, diarrhea, abdominal pain, urinary symptoms, recent weight gain or weight loss, recent bloody bowel movements or black bowel movements, recent joint aches, headaches, or rashes. The patient's PCP is Louisa Mohamud NP. Her Neurosurgeon is Dr. Aldair Mondragon. Her Pain Specialist is Dr. Clemente Sales. Her Agricultural Lender is Dr. Angus Cheney. Left Hip Pain Score (Numeric/FACES): 6 - Related Data Allergies Allergy/AdvReac Type Severity Reaction Status Date / Time clindamycin Allergy Hives Verified 11/15/19 19:42 morphine Allergy Hives Uncoded 11/15/19 19:42 Home Meds: Home Meds Pantoprazole [ProTONIX] 40 mg PO DAILY 10/02/17 [History] traMADol [Ultram] 100 mg PO TID 10/02/17 [History] ALPRAZolam [Xanax] 1 mg PO Q8H PRN 06/14/18 [History] amLODIPine Besylate [Norvasc] 10 mg PO DAILY 06/03/19 [History] Acetaminophen/HYDROcodone [[place] 325-5 MG] 1 tab PO Q4H PRN #5 tablet 10/14/19 [Rx] FLUoxetine [PROzac] 80 mg PO DAILY 10/14/19 [History] Naproxen [Naprosyn] 500 mg PO Q12HR 5 Days #10 tab 10/14/19 [Rx] Past Medical History HEENT History: Reports: Allergic Rhinitis Cardiovascular History: Reports: High Cholesterol, Hypertension Respiratory History: Reports: Sleep Apnea (nightly CPAP 6) Gastrointestinal History: Reports: GERD 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 Musculoskeletal History: Reports: Fracture (left ankle), Osteoarthritis (lumbar spine) Neurological History: Reports: Neuropathy, Diabetic Psychiatric History: Reports: Anxiety, Depression Endocrine/Metabolic History: Reports: Diabetes, Type II, Obesity/BMI 30+ - Infectious Disease History Infectious Disease History: Reports: Chicken Pox, Measles, Mumps - Past Surgical History GI Surgical History: Reports: Colonoscopy (x 1) Female Surgical History: Reports: D&C (x 1), Hysterectomy (partial) Dermatological Surgical History: Reports: Other (See Below) (Lipoma excised off back) Social & Family History - Family History Family Medical History: Noncontributory - Tobacco Use Smoking Status *Q: Current Every Day Smoker Years of Tobacco use: 31 Packs/Tins Daily: 0.2 - Caffeine Use Caffeine Use: Reports: None - Alcohol Use Alcohol Use History: No - Recreational Drug Use Recreational Drug Use: Yes Recreational Drug Type: Reports: Cocaine (last snorted, smoked 2007), Marijuana/Hashish (last smoked late ), Methamphetamine (last smoked 2007) - Living Situation & Occupation Living situation: Reports: , with Family (Son) Occupation: Unemployed ED ROS GENERAL - Review of Systems Review Of Systems: Comprehensive ROS is negative, except as noted in HPI. ED EXAM, GENERAL - Physical Exam Exam: See Below Exam Limited By: No Limitations General Appearance: Alert, WD/WN, No Apparent Distress Eye Exam: Bilateral Eye: EOMI, Normal Inspection Ears: Normal External Exam, Hearing Grossly Normal Nose: Normal Inspection Throat/Mouth: Normal Inspection, Normal Lips, Normal Voice, No Airway Compromise Head: Atraumatic, Normocephalic Neck: Normal Inspection, Full Range of Motion Respiratory/Chest: No Respiratory Distress, Lungs Clear, Normal Breath Sounds, No Accessory Muscle Use Cardiovascular: Normal Peripheral Pulses, Regular Rate, Rhythm, No Gallop, No JVD, No Murmur, No Rub Peripheral Pulses: 3+: Radial (L), Radial (R) GI/Abdominal: Normal Bowel Sounds, Soft, Non-Tender, No Organomegaly, No Dis tention, No Abnormal Bruit, No Mass (Female) Exam: Normal External Exam. No: Vaginal Bleeding, Vaginal Discharge, Vaginal Lesions Rectal (Female) Exam: Deferred Back Exam: Normal Inspection, Full Range of Motion, NT Extremities: Normal Inspection, Normal Range of Motion, No Pedal Edema, Normal C apillary Refill, Other (Reproducible tenderness to palpation of the upper left buttock. No visible abnormalities, such as swelling, erythema, ecchymosis, or abrasion.) Neurological: Alert, Oriented, Normal Cognition, No Motor/Sensory Deficits Psychiatric: Normal Affect Skin Exam: Warm, Dry, Intact, Normal Color, No Rash Course - Vital Signs Last Recorded V/S: Last Vital Signs Temp 36.6 C 11/15/19 19:39 Pulse 97 11/15/19 19:39 Resp 16 11/15/19 19:39 BP 152/69 H 11/15/19 19:39 Pulse Ox 95 11/15/19 19:39 - Orders/Labs/Meds Orders: Active Orders 24 hr Category Date Time Status Hip Min 2V or 3V w Pelvis Lt [CR] Stat Exams 11/15/19 20:00 Taken CULTURE GENITAL [RM] Stat Lab 11/15/19 21:07 Ordered Labs: Laboratory Tests 11/15/19 Range/Units 20:26 Urine Color Yellow (Yellow) Urine Appearance Clear (Clear) Urine pH 6.0 (5.0-8.0) Ur Specific [place] > or = 1.030 (1.005-1.030) Urine Protein Trace H (Negative) Urine Glucose (UA) Negative (Negative) Urine Ketones Negative (Negative) Urine Occult Blood Negative (Negative) Urine Nitrite Negative (Negative) Urine Bilirubin Negative (Negative) Urine Urobilinogen 0.2 (0.2-1.0) Ur Leukocyte Esterase Negative (Negative) Urine RBC 0-5 (0-5) /hpf Urine WBC 0-5 (0-5) /hpf Ur Squamous Epith Cells 5-10 H (0-5) /hpf Urine Bacteria Few (FEW) /hpf Urine Mucus Few (FEW) /hpf Meds: Medications Discontinued Medications Generic Name Dose Route Start Last Admin Trade Name Gill PRN Reason Stop Dose Admin Hydrocodone Bitart/Acetaminophen 1 tab 11/15/19 20:29 11/15/19 20:34 [place] 325-5 Mg PO 11/15/19 20:30 1 tab ONETIME STA Administration Hydrocodone Bitart/Acetaminophen 1 tab 11/15/19 20:48 11/15/19 20:52 [place] 325-5 Mg PO 11/15/19 20:49 1 tab ONETIME STA Administration - Re-Assessments/Exams Free Text/Narrative Re-Assessment/Exam: 11/15/19 20:01 As above, the patient's left lower extremity gave out on her around 18:00, causing her to fall onto her left buttock, causing pain. On examination, she has some soft tissue tenderness to the left buttock, but no visible injury, and her pelvis appears to be stable. I have ordered x-rays of the left hip and pelvis to evaluate. The patient is also complaining of vaginal discomfort with some bleeding for the past 4 days after having intercourse. She is concerned that she may have a leech in her vagina. After we have cleared the patient's hip and pelvis, we will take her to the gynecologic evaluation room to perform a pelvic examination. I have also ordered a urinalysis by clean-catch. 11/15/19 20:27 3-view radiographs of the patient's left hip and pelvis appear to be grossly unremarkable, with no fractures or dislocations identified. Formal read per the Radiologist pending. 11/15/19 20:47 The patient's urinalysis is unremarkable. 11/15/19 20:53 Although the patient's x-rays are negative, and there is no visible abnormality to the left buttock, such as a visible bruise, the patient requested pain medication. I ordered a single tablet of [place]. I was later informed that she wanted two. 11/15/19 21:08 On pelvic examination, no visible abnormalities to the vulva or vagina were seen. No vaginal discharge. No new or old blood seen. The patient does not have a cervix. A vaginal culture was obtained. 11/15/19 21:20 Test results discussed with the patient. As above, I suspect that the patient h as a contusion to her left buttock. Her current pain medications should be more than adequate to deal with that. I am recommending that she stay ambulatory. With respect to her vaginal discomfort, the patient is likely suffering from early vaginal atrophy due to menopause. I am recommending that she follow-up with her Agricultural Lender, Dr. Cheney, to discuss treatment options that may include hormone replacement therapy versus vaginal estrogen cream. In the meantime, I am recommending that the patient use a water-based or silicone-based lubricant when engaging in sexual intercourse. Departure - Departure Time of Disposition: 21:21 Disposition: Home, Self-Care 01 Condition: Good Clinical Impression: Contusion of buttock, Vaginal atrophy - Discharge Information *PRESCRIPTION DRUG MONITORING PROGRAM REVIEWED*: Not Applicable *COPY OF PRESCRIPTION DRUG MONITORING REPORT IN PATIENT MEAGAN: Not Applicable Instructions: Contusion Referrals: Louisa Mohamud NP [Primary Care Provider] - Aldair Mondragon MD [Consulting Physician] - Clemente Sales MD [Ordering Only Provider] - Angus Cheney MD [Physician] - Forms: ED Department Discharge Additional Instructions: You were seen in the emergency room after falling at home onto your left buttock, and for 4 days of vaginal discomfort with some bleeding after intercourse. Work-up in the ER included x-rays of your left hip and pelvis, a urinalysis, and a vaginal culture was obtained during a pelvic examination. Your entire work-up was unremarkable. No broken bones or dislocations were found. You do not have a urinary tract infection. No abnormalities were found on your pelvic examination. Based on your history, physical examination, and ER tests, you likely contused (bruised) your left buttock when you fell. We recommend that you continue to take your usual pain medications. We recommend that you stay active. Your vaginal discomfort is most likely due to vaginal atrophy due to menopause. We recommend that you follow-up with your Agricultural Lender, Dr. Angus Cheney, to discuss treatment options that may include hormone replacement therapy and/or vaginal estrogen cream. In the meantime, we recommend that you use a water- based or silicone-based lubricant whenever you engage in sexual intercourse. If any other problems, please do not hesitate to return to the ER. Sepsis Event Note (ED) - Evaluation Sepsis Screening Result: No Definite Risk - Focused Exam Vital Signs: Vital Signs Temp Pulse Resp BP Pulse Ox 11/15/19 19:39 36.6 C 97 16 152/69 H 95 - My Orders Last 24 Hours: My Active Orders 11/15/19 20:00 Hip Min 2V or 3V w Pelvis Lt [CR] Stat 11/15/19 21:07 CULTURE GENITAL [RM] Stat - Assessment/Plan Last 24 Hours: My Active Orders 11/15/19 20:00 Hip Min 2V or 3V w Pelvis Lt [CR] Stat 11/15/19 21:07 CULTURE GENITAL [RM] Stat
[2019-11-15] MEDS ORDERED: Acetaminophen/HYDROcodone 325-5 MG Tab PO STA ×2 (20:29→20:48)
--- NOTE | 2019-11-16 13:46 | CR ---
Pelvis and left hip: AP view of the pelvis was obtained as well as AP and frog-leg lateral views left hip. Comparison: Prior pelvis exam of 11/07/18. Joint spaces within both hips are maintained. Sacroiliac joints also appear within normal limits. No acute fracture, dislocation or other bony abnormality is appreciated. Impression: 1. Nothing acute is appreciated on AP pelvis or on 2 view left hip exam. Diagnostic code #1 This report was dictated in MDT
== END 2019-11-15 21:30 | disposition home or self-care (01) ==
LOC: JD.ED 19:29
DX: S30.0XXA Contusion of lower back and pelvis, initial encounter (principal); N95.2 Postmenopausal atrophic vaginitis; I10 Essential (primary) hypertension; K21.9 Gastro-esophageal reflux disease without esophagitis; M19.90 Unspecified osteoarthritis, unspecified site; F41.9 Anxiety disorder, unspecified; F32.9 Major depressive disorder, single episode, unspecified; E11.40 Type 2 diabetes mellitus with diabetic neuropathy, unspecified; E66.9 Obesity, unspecified; Z68.32 Body mass index [BMI] 32.0-32.9, adult; F17.210 Nicotine dependence, cigarettes, uncomplicated; Z88.1 Allergy status to other antibiotic agents; Z88.5 Allergy status to narcotic agent; Z79.899 Other long term (current) drug therapy; W19.XXXA Unspecified fall, initial encounter; Y92.009 Unspecified place in unspecified non-institutional (private) residence as the place of occurrence of the external cause
CPT/HCPCS: 73502; 81001; 87070; 87106; 99283; A9270

== ENCOUNTER 2019-11-21 09:20 | Emergency (ER) | payer MEDICAID ==
[2019-11-21 09:31] VITALS: BP 140/75; PULSE 99
--- NOTE | 2019-11-21 09:35 | EDM.PDOC ---
ED HPI GENERAL MEDICAL PROBLEM - General Chief Complaint: Chest Pain Stated Complaint: CHEST PAIN Time Seen by Provider: 11/21/19 09:34 - History of Present Illness INITIAL COMMENTS - FREE TEXT/NARRATIVE: 54-year-old female presents the emergency room with chest pain. Patient thinks this started around 730 this morning she woke at 7 and did not have it she drank some water with her medications and the seem to make it worse. She then tried Tums this did not help. The patient is seen cardiology and is scheduled to have a stress test on this coming Sunday. The patient recently had a calcium score done and it was quite elevated. The patient has a history of type 2 diabetes and was on metformin however they recently stopped the metformin as the patient's A1c is doing pretty good and she is lost 35 pounds. The patient smoked for over 20 years but quit a while back. The patient describes pain is more of a burning substernal pain however she has generalized chest wall discomfort. No pain extending into her arms or into her neck. Patient has a significant past family history of coronary artery disease her mother and grandmother in her 50s of heart attacks as did other females in her family. - Related Data Allergies Allergy/AdvReac Type Severity Reaction Status Date / Time clindamycin Allergy Hives Verified 11/15/19 19:42 morphine Allergy Hives Uncoded 11/15/19 19:42 Home Meds: Home Meds Pantoprazole [ProTONIX] 40 mg PO DAILY 10/02/17 [History] traMADol [Ultram] 100 mg PO TID 10/02/17 [History] ALPRAZolam [Xanax] 1 mg PO Q8H PRN 06/14/18 [History] amLODIPine Besylate [Norvasc] 10 mg PO DAILY 06/03/19 [History] Acetaminophen/HYDROcodone [[place] 325-5 MG] 1 tab PO Q4H PRN #5 tablet 10/14/19 [Rx] FLUoxetine [PROzac] 80 mg PO DAILY 10/14/19 [History] Naproxen [Naprosyn] 500 mg PO Q12HR 5 Days #10 tab 10/14/19 [Rx] Past Medical History HEENT History: Reports: Allergic Rhinitis Cardiovascular History: Reports: High Cholesterol, Hypertension Respiratory History: Reports: Sleep Apnea (nightly CPAP 6) Gastrointestinal History: Reports: GERD Genitourinary History: Reports: UTI, Recurrent, Other (See Below) Other Genitourinary History: gential warts 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 Other PRIVACY ANALYST History: thickened endometrium, post menopausal bleeding, endometrial hyperplasia, condyloma acuminatum, Right breast cyst drainage, , laparotomy Musculoskeletal History: Reports: Fracture (left ankle), Osteoarthritis (lumbar spine) Other Musculoskeletal History: right index finger mallet deformity, plantar fasciitis Neurological History: Reports: Neuropathy, Diabetic Other Neuro History: cerviclagia Psychiatric History: Reports: Anxiety, Depression Endocrine/Metabolic History: Reports: Diabetes, Type II, Obesity/BMI 30+ Hematologic History: Reports: None Immunologic History: Reports: None Oncologic (Cancer) History: Reports: None Dermatologic History: Reports: Other (See Below) Other Dermatologic History: lipoma excision, contusion to face, linear morphea, lipoma excison - Infectious Disease History Infectious Disease History: Reports: Chicken Pox, Measles, Mumps - Past Surgical History GI Surgical History: Reports: Colonoscopy (x 1) Female Surgical History: Reports: D&C (x 1), Hysterectomy (partial) Dermatological Surgical History: Reports: Other (See Below) (Lipoma excised off back) Social & Family History - Family History Family Medical History: Noncontributory - Caffeine Use Caffeine Use: Reports: None - Living Situation & Occupation Living situation: Reports: , with Family (Son) Occupation: Unemployed ED ROS GENERAL - Review of Systems Review Of Systems: See Below Constitutional: Reports: No Symptoms HEENT: Reports: No Symptoms Respiratory: Reports: No Symptoms Cardiovascular: Reports: Chest Pain Endocrine: Reports: No Symptoms GI/Abdominal: Reports: No Symptoms : Reports: No Symptoms Musculoskeletal: Reports: Back Pain Skin: Reports: No Symptoms Neurological: Reports: No Symptoms Psychiatric: Reports: Anxiety ED EXAM, GENERAL - Physical Exam Exam: See Below Exam Limited By: No Limitations General Appearance: Alert, Anxious, Mild Distress Head: Atraumatic, Normocephalic Neck: Normal Inspection, Supple, Non-Tender, Full Range of Motion Respiratory/Chest: No Respiratory Distress, Lungs Clear, Normal Breath Sounds Cardiovascular: Normal Peripheral Pulses, Regular Rate, Rhythm, No Edema GI/Abdominal: Normal Bowel Sounds, Soft, Non-Tender Back Exam: Normal Inspection. No: CVA Tenderness (L), CVA Tenderness (R) Extremities: Normal Inspection, No Pedal Edema Neurological: Alert, Oriented, Normal Cognition Psychiatric: Anxious Skin Exam: Warm, Dry, Intact EKG INTERPRETATION EKG Date: 11/21/19 Rhythm: NSR [place]: Other (Leftward axis, borderline) P-Wave: Present QRS: Normal ST-T: Other (Nondiagnostic ST depression in leads I to V5 and 6) QT: Prolonged (Borderline prolongation) Comparison: No Change EKG Interpretation Comments: Abnormal Course - Vital Signs Last Recorded V/S: Last Vital Signs Temp 36.3 C 11/21/19 09:27 Pulse 99 11/21/19 09:27 Resp 20 11/21/19 09:27 BP 140/75 11/21/19 09:27 Pulse Ox 98 11/21/19 09:27 - Orders/Labs/Meds Labs: Laboratory Tests 11/21/19 11/21/19 11/21/19 Range/Units 09:35 09:35 09:35 WBC 8.78 (3.98-10.04) K/mm3 RBC 4.64 (3.98-5.22) M/mm3 Hgb 13.8 (11.2-15.7) gm/dl Hct 43.0 (34.1-44.9) % MCV 92.7 (79.4-94.8) fl MCH 29.7 (25.6-32.2) pg MCHC 32.1 L (32.2-35.5) g/dl RDW Std Deviation 44.9 (36.4-46.3) fL Plt Count 424 H (182-369) K/mm3 MPV 8.7 L (9.4-12.3) fl Neut % (Auto) 63.7 (34.0-71.1) % Lymph % (Auto) 27.6 (19.3-51.7) % [place] % (Auto) 6.0 (4.7-12.5) % Eos % (Auto) 2.2 (0.7-5.8) Baso % (Auto) 0.3 (0.1-1.2) % Neut # (Auto) 5.59 (1.56-6.13) K/mm3 Lymph # (Auto) 2.42 (1.18-3.74) K/mm3 [place] # (Auto) 0.53 H (0.24-0.36) K/mm3 Eos # (Auto) 0.19 (0.04-0.36) K/mm3 Baso # (Auto) 0.03 (0.01-0.08) K/mm3 PT 10.3 (9.7-12.0) SECONDS INR 0.96 APTT 28 (22-31) SECONDS Sodium 137 (136-145) mEq/L Potassium 3.5 (3.5-5.1) mEq/L Chloride 99 (98-107) mEq/L Carbon Dioxide 27 (21-32) mEq/L Anion Gap 14.5 (5-15) BUN 11 (7-18) mg/dL Creatinine 0.9 (0.55-1.02) mg/dL Est Cr Clr Drug Dosing 62.42 mL/min Estimated GFR (MDRD) > 60 (>60) mL/min BUN/Creatinine Ratio 12.2 L (14-18) Glucose 159 H (74-106) mg/dL Calcium 9.4 (8.5-10.1) mg/dL Total Bilirubin 0.2 (0.2-1.0) mg/dL AST 16 (15-37) U/L ALT 17 (14-59) U/L Alkaline Phosphatase 195 H (46-116) U/L Troponin I < 0.017 (0.00-0.056) ng/mL Total Protein 8.2 (6.4-8.2) g/dl Albumin 3.5 (3.4-5.0) g/dl Globulin 4.7 gm/dL Albumin/Globulin Ratio 0.7 L (1-2) Lipase 53 L (73-393) U/L Meds: Medications Discontinued Medications Generic Name Dose Route Start Last Admin Trade Name Freq PRN Reason Stop Dose Admin Hydrocodone Bitart/Acetaminophen 1 tab 11/21/19 10:23 11/21/19 10:32 [place] 325-5 Mg PO 11/21/19 10:24 1 tab ONETIME ONE Administration Al Hydroxide/Mg Hydroxide 30 0 ml 11/21/19 09:50 11/21/19 10:01 ml/ Lidocaine HCl 15 ml PO 11/21/19 09:51 45 ml ONETIME ONE Administration - Re-Assessments/Exams Free Text/Narrative Re-Assessment/Exam: 11/21/19 10:21 The patient is doing better after GI cocktail she has significant improvement in her symptoms. Now her back is hurting. She normally uses hydrocodone at home but she has not taken any today we will give her 1. 11/21/19 12:10 Laboratory evaluation is unrevealing including negative troponin her alk phos however is elevated. Chest x-ray shows no acute changes. EKG is unchanged. At this point she wants to go we will discharge I recommended she take famotidine 20 mg twice a day in addition to her PPI to see if this helps with her dyspepsia and chest discomfort. She needs to follow-up with her stress test scheduled for this Sunday - Departure Time of Disposition: 12:12 Disposition: Home, Self-Care 01 Clinical Impression: Non-cardiac chest pain, Dyspepsia Referrals: Louisa Mohamud NP [Primary Care Provider] - Forms: ED Department Discharge Additional Instructions: Return to the emergency room with any questions problems or worsening symptoms. 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 Follow-up with your regular provider in 2 weeks have your alk phos rechecked as it was slightly elevated here. Continue with your stress test scheduled on Sunday. Sepsis Event Note (ED) - Evaluation Sepsis Screening Result: No Definite Risk - Focused Exam Vital Signs: Vital Signs Temp Pulse Resp BP Pulse Ox 11/21/19 09:27 36.3 C 99 20 140/75 98
[2019-11-21] MEDS ORDERED: Alum Hydrox/Mag Hydrox/Simeth 30 ML, Lidocaine 2% 15 ML PO ONE ×2 (09:50)
[2019-11-21] MEDS ORDERED: Acetaminophen/HYDROcodone 325-5 MG Tab PO ONE (10:23)
--- NOTE | 2019-11-21 11:24 | CR ---
Chest: Portable view of the chest was obtained. Comparison: Previous chest x-ray of 10/24/19. Heart size and mediastinum are normal. Lungs are clear with no acute parenchymal change. Bony structures are grossly intact. Impression: 1. Nothing acute is appreciated on portable chest x-ray. Diagnostic code #1 This report was dictated in MDT
== END 2019-11-21 12:18 | disposition home or self-care (01) ==
LOC: JD.ED 09:20
DX: R07.89 Other chest pain (principal); R10.13 Epigastric pain; I10 Essential (primary) hypertension; K21.9 Gastro-esophageal reflux disease without esophagitis; E11.40 Type 2 diabetes mellitus with diabetic neuropathy, unspecified; F41.9 Anxiety disorder, unspecified; F32.9 Major depressive disorder, single episode, unspecified; E66.9 Obesity, unspecified; Z68.32 Body mass index [BMI] 32.0-32.9, adult; Z88.5 Allergy status to narcotic agent; Z88.1 Allergy status to other antibiotic agents; Z79.899 Other long term (current) drug therapy
CPT/HCPCS: 36415; 71045; 80053; 83690; 84484; 85025; 85610; 85730; 99285; A9270; 93010; 99284

== ENCOUNTER 2019-12-29 14:10 | Emergency (ER) | payer MEDICAID ==
[2019-12-29] MEDS ORDERED: HYDROmorphone 1 MG/ML Syringe IM ONE (15:24)
--- NOTE | 2019-12-29 15:49 | EDM.PDOC ---
ED HPI GENERAL MEDICAL PROBLEM - General Chief Complaint: Abdominal Pain Stated Complaint: LOWER ABD PAIN AND VAGINAL BLEEDING Time Seen by Provider: 12/29/19 14:45 Source of Information: Reports: Patient History Limitations: Reports: No Limitations - History of Present Illness INITIAL COMMENTS - FREE TEXT/NARRATIVE: The patient presents with pelvic pain and vaginal bleeding. This has been going on for a couple of days. She had a hysterectomy about one and a half years ago. 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 She also has some pelvic pain. She did use lubrication so it was not that dry and she told my nurse it was not rough intercourse. She has no fever, chills, cough, chest pain, shortness of breath, nausea or vomiting. She has no dysuria or diarrhea. She does still have an ovary. Onset: Gradual Duration: Day(s): (2) Location: Reports: Pelvis Quality: Reports: Sharp Severity: Moderate Improves with: Reports: None Worsens with: Reports: None Associated Symptoms: Denies: Chest Pain, Cough, Fever/Chills, Headaches, Nausea/Vomiting, Shortness of Breath Lower Pelvic Pain Score (Numeric/FACES): 7 - Related Data Allergies Allergy/AdvReac Type Severity Reaction Status Date / Time clindamycin Allergy Severe Hives Verified 12/29/19 14:30 morphine Allergy Severe Hives Uncoded 12/29/19 14:30 Home Meds: Home Meds Pantoprazole [ProTONIX] 40 mg PO DAILY 10/02/17 [History] traMADol [Ultram] 100 mg PO TID 10/02/17 [History] ALPRAZolam [Xanax] 1 mg PO Q8H PRN 06/14/18 [History] amLODIPine Besylate [Norvasc] 10 mg PO DAILY 06/03/19 [History] FLUoxetine [PROzac] 80 mg PO DAILY 10/14/19 [History] Naproxen [Naprosyn] 500 mg PO Q12HR 5 Days #10 tab 10/14/19 [Rx] Past Medical History HEENT History: Reports: Allergic Rhinitis Cardiovascular History: Reports: High Cholesterol, Hypertension Respiratory History: Reports: Sleep Apnea Gastrointestinal History: Reports: GERD Genitourinary History: Reports: UTI, Recurrent, Other (See Below) Other Genitourinary History: gential warts ANIMAL ASSISTANT History: Reports: Ectopic Other ANIMAL ASSISTANT History: thickened endometrium, post menopausal bleeding, endometrial hyperplasia, condyloma acuminatum, Right breast cyst drainage, , laparotomy Musculoskeletal History: Reports: Fracture, Osteoarthritis Other Musculoskeletal History: right index finger mallet deformity, plantar fasciitis Neurological History: Reports: Neuropathy, Diabetic Other Neuro History: cerviclagia Psychiatric History: Reports: Anxiety, Depression Endocrine/Metabolic History: Reports: Diabetes, Type II, Obesity/BMI 30+ Hematologic History: Reports: None Immunologic History: Reports: None Oncologic (Cancer) History: Reports: None Dermatologic History: Reports: Other (See Below) Other Dermatologic History: lipoma excision, contusion to face, linear morphea, lipoma excison - Infectious Disease History Infectious Disease History: Reports: Chicken Pox, Measles, Mumps - Past Surgical History Head Surgeries/Procedures: Reports: None GI Surgical History: Reports: Colonoscopy Female Surgical History: Reports: D&C, Hysterectomy Dermatological Surgical History: Reports: Other (See Below) Social & Family History - Family History Family Medical History: Noncontributory - Tobacco Use Smoking Status *Q: Never Smoker - Caffeine Use Caffeine Use: Reports: Coffee, Soda, Tea - Recreational Drug Use Recreational Drug Use: No - Living Situation & Occupation Living situation: Reports: , with Family (Son) Occupation: Unemployed ED ROS GENERAL - Review of Systems Review Of Systems: See Below Constitutional: Reports: No Symptoms HEENT: Reports: No Symptoms Respiratory: Reports: No Symptoms Cardiovascular: Reports: No Symptoms Endocrine: Reports: No Symptoms : Reports: Other (Pelvic pain and vaginal bleeding) ED EXAM, GI/ABD - Physical Exam Exam: See Below Exam Limited By: No Limitations General Appearance: Alert, No Apparent Distress Ears: Normal External Exam Nose: Normal Inspection Head: Atraumatic, Normocephalic Neck: Normal Inspection Respiratory/Chest: No Respiratory Distress, Lungs Clear, Normal Breath Sounds Cardiovascular: Regular Rate, Rhythm, No Edema, No Murmur GI/Abdominal Exam: Soft, No Organomegaly, No Mass, Tender (Lower abdominal pain) (Female) Exam: Normal External Exam, Normal Speculum Exam, Other (wart noted to the left buttocks) Course - Vital Signs Last Recorded V/S: Last Vital Signs Temp 97.4 F 12/29/19 14:34 Pulse 98 09/14/20 14:34 Resp 20 12/29/19 14:34 BP 145/79 H 12/29/19 14:34 Pulse Ox 95 12/29/19 14:34 - Orders/Labs/Meds Orders: Active Orders 24 hr Category Date Time Status Pelvic Exam, Set Up [RC] ASDIRECTED Care 12/29/19 15:03 Active Labs: Laboratory Tests 12/29/19 12/29/19 12/29/19 Range/Units 15:15 15:15 15:20 WBC 9.89 (3.98-10.04) K/mm3 RBC 4.38 (3.98-5.22) M/mm3 Hgb 13.2 (11.2-15.7) gm/dl Hct 40.6 (34.1-44.9) % MCV 92.7 (79.4-94.8) fl MCH 30.1 (25.6-32.2) pg MCHC 32.5 (32.2-35.5) g/dl RDW Std Deviation 45.9 (36.4-46.3) fL Plt Count 325 D (182-369) K/mm3 MPV 8.8 L (9.4-12.3) fl Neut % (Auto) 59.9 (34.0-71.1) % Lymph % (Auto) 24.6 (19.3-51.7) % [place] % (Auto) 8.7 (4.7-12.5) % Eos % (Auto) 6.0 H (0.7-5.8) Baso % (Auto) 0.4 (0.1-1.2) % Neut # (Auto) 5.93 (1.56-6.13) K/mm3 Lymph # (Auto) 2.43 (1.18-3.74) K/mm3 [place] # (Auto) 0.86 H (0.24-0.36) K/mm3 Eos # (Auto) 0.59 H (0.04-0.36) K/mm3 Baso # (Auto) 0.04 (0.01-0.08) K/mm3 Sodium 137 (136-145) mEq/L Potassium 3.7 (3.5-5.1) mEq/L Chloride 101 (98-107) mEq/L Carbon Dioxide 25 (21-32) mEq/L Anion Gap 14.7 (5-15) BUN 10 (7-18) mg/dL Creatinine 0.7 (0.55-1.02) mg/dL Est Cr Clr Drug Dosing 80.26 mL/min Estimated GFR (MDRD) > 60 (>60) mL/min BUN/Creatinine Ratio 14.3 (14-18) Glucose 162 H (74-106) mg/dL Calcium 8.8 (8.5-10.1) mg/dL Total Bilirubin 0.2 (0.2-1.0) mg/dL AST 13 L (15-37) U/L ALT 19 (14-59) U/L Alkaline Phosphatase 210 H (46-116) U/L Total Protein 7.2 (6.4-8.2) g/dl Albumin 3.1 L (3.4-5.0) g/dl Globulin 4.1 gm/dL Albumin/Globulin Ratio 0.8 L (1-2) Urine Color Yellow (Yellow) Urine Appearance Clear (Clear) Urine pH 6.5 (5.0-8.0) Ur Specific [place] > or = 1.030 (1.005-1.030) Urine Protein Negative (Negative) Urine Glucose (UA) Negative (Negative) Urine Ketones Negative (Negative) Urine Occult Blood Negative (Negative) Urine Nitrite Negative (Negative) Urine Bilirubin Negative (Negative) Urine Urobilinogen 0.2 (0.2-1.0) Ur Leukocyte Esterase Negative (Negative) Urine RBC 0-5 (0-5) /hpf Urine WBC 0-5 (0-5) /hpf Ur Squamous Epith Cells 5-10 H (0-5) /hpf Amorphous Sediment Few H (NOT SEEN) /hpf Urine Bacteria Few (FEW) /hpf Urine Mucus Few (FEW) /hpf Meds: Medications Discontinued Medications Generic Name Dose Route Start Last Admin Trade Name Freq PRN Reason Stop Dose Admin Hydromorphone HCl 1 mg 12/29/19 15:24 12/29/19 15:37 Dilaudid IM 12/29/19 15:25 1 mg ONETIME ONE Administration - Re-Assessments/Exams Free Text/Narrative Re-Assessment/Exam: 12/29/19 15:48 I ordered labs, vaginal exam and US. She did want something for the US so I ordered dilaudid 1mg IM. 12/29/19 16:34 Her US looks good. The pelvic exam was negative for any blood or lacerations. She did have a couple small warts to the left buttock. I will discharge her home to follow up with her doctor. Departure - Departure Time of Disposition: 16:40 Disposition: Home, Self-Care 01 Condition: Good Clinical Impression: Pelvic pain, Vaginal bleeding Wart Qualifiers: Viral wart type: unspecified viral wart Qualified Code(s): B07.9 - Viral wart, unspecified - Discharge Information *PRESCRIPTION DRUG MONITORING PROGRAM REVIEWED*: Not Applicable *COPY OF PRESCRIPTION DRUG MONITORING REPORT IN PATIENT MEAGAN: Not Applicable Referrals: Louisa Mohamud NP [Primary Care Provider] - 1 Day Forms: ED Department Discharge Additional Instructions: Follow up with your doctor as planed. Please return if you are worse. Sepsis Event Note (ED) - Evaluation Sepsis Screening Result: No Definite Risk - Focused Exam Vital Signs: Vital Signs Temp Pulse Resp BP Pulse Ox 12/29/19 14:34 97.4 F 98 20 145/79 H 95 - My Orders Last 24 Hours: My Active Orders 12/29/19 15:03 Pelvic Exam, Set Up [RC] ASDIRECTED - Assessment/Plan Last 24 Hours: My Active Orders 12/29/19 15:03 Pelvic Exam, Set Up [RC] ASDIRECTED
--- NOTE | 2019-12-29 16:22 | US ---
Pelvic ultrasound: Multiple real-time images were obtained transabdominally. Ovaries and uterus are not visualized. No discrete cystic or solid finding is seen. No free fluid is seen. Impression: 1. No gross abnormality is appreciated. Diagnostic code #1 This report was dictated in MDT
[2019-12-29 16:51] VITALS: BP 126/77; PULSE 104
== END 2019-12-29 16:46 | disposition home or self-care (01) ==
LOC: JD.ED 14:10
DX: N93.9 Abnormal uterine and vaginal bleeding, unspecified (principal); B07.9 Viral wart, unspecified; R10.2 Pelvic and perineal pain; I10 Essential (primary) hypertension; K21.9 Gastro-esophageal reflux disease without esophagitis; F32.9 Major depressive disorder, single episode, unspecified; F41.9 Anxiety disorder, unspecified; M19.90 Unspecified osteoarthritis, unspecified site; E11.40 Type 2 diabetes mellitus with diabetic neuropathy, unspecified; Z88.1 Allergy status to other antibiotic agents; Z88.5 Allergy status to narcotic agent; Z79.899 Other long term (current) drug therapy
CPT/HCPCS: 36415; 76856; 80053; 81001; 85025; 96372; 99284; J1170

== ENCOUNTER 2020-01-10 07:07 | Emergency (ER) | payer MEDICAID ==
[2020-01-10] MEDS ORDERED: HYDROmorphone 0.5 MG/0.5 ML Syringe IVPUSH ONE ×2 (07:33→08:48)
[2020-01-10] MEDS ORDERED: Ondansetron 4 MG/2 ML SDV IVPUSH ONE (07:33)
--- NOTE | 2020-01-10 07:33 | EDM.PDOC ---
ED HPI GENERAL MEDICAL PROBLEM - General Chief Complaint: Flank Pain Stated Complaint: FLANK PAIN Time Seen by Provider: 01/10/20 07:26 Source of Information: Reports: Patient History Limitations: Reports: No Limitations - History of Present Illness INITIAL COMMENTS - FREE TEXT/NARRATIVE: 54-year-old female presents to the ED complaining of diffuse low back pain with known degenerative disc disease throughout the lumbar spine with radiculopathy involving both buttocks and upper legs. She apparently has been seen by neurosurgery and is considering having lumbar spine fusion. She reports pain at this time however is different it is coming from higher up in the right flank. She is appreciated urine is dark in color. Few drops of blood when she wiped. Of note she has had a hysterectomy and left oophorectomy. States bowel function is been normal. Poor appetite. Very poor mobility due to pain in the lower back. No recent falls. No noted fever or chills. Mild intermittent cough with minimal sputum production. Patient reports she is a type II diabetic controlled with diet. Onset: Gradual Onset Date: 01/08/20 (Chronic low back pain. Worsening pain over the last 48 hours right flank right hemiabdomen.) Duration: Day(s):, Getting Worse Location: Reports: Back ([facility] lower back pain rating to both buttocks. Right flank pain) Quality: Reports: Ache, Other (Urine dark in color) Severity: Moderate Improves with: Reports: Rest (Pain seems to be better resting. Worse with trying to sit up and move.) Worsens with: Reports: Movement Context: Reports: Other (Spontaneous occurrence.). Denies: Activity (Suggest musculoskeletal origin.), Exercise, Lifting, Sick Contact, Trauma Associated Symptoms: Reports: Cough, cough w sputum, Loss of Appetite, Malaise, Shortness of Breath, Weakness. Denies: Confusion, Chest Pain, Diaphoresis, Fever/Chills, Headaches, Nausea/Vomiting, Rash, Seizure, Syncope (On exertion.) Treatments GRAPHIC EDITOR: Reports: Other (see below) (Both lower extremities. Tramadol primarily for pain relief) Right Flank Pain Score (Numeric/FACES): 8 - Related Data Allergies Allergy/AdvReac Type Severity Reaction Status Date / Time clindamycin Allergy Severe Hives Verified 01/10/20 07:17 morphine Allergy Severe Hives Uncoded 01/10/20 07:17 Home Meds: Home Meds Pantoprazole [ProTONIX] 40 mg PO DAILY 10/02/17 [History] traMADol [Ultram] 100 mg PO TID 10/02/17 [History] ALPRAZolam [Xanax] 1 mg PO Q8H PRN 06/14/18 [History] amLODIPine Besylate [Norvasc] 10 mg PO DAILY 06/03/19 [History] FLUoxetine [PROzac] 80 mg PO DAILY 10/14/19 [History] Naproxen [Naprosyn] 500 mg PO Q12HR 5 Days #10 tab 10/14/19 [Rx] Hydrocodone/Acetaminophen [[place] 10-325 Tablet] 10 - 325 mg PO BID PRN 01/10/20 [History] Meloxicam 15 mg PO DAILY #14 tablet 01/10/20 [Rx] Past Medical History HEENT History: Reports: Allergic Rhinitis Cardiovascular History: Reports: High Cholesterol, Hypertension Respiratory History: Reports: Sleep Apnea Gastrointestinal History: Reports: GERD Genitourinary History: Reports: UTI, Recurrent, Other (See Below) Other Genitourinary History: gential warts TACKING MACHINE OPERATOR History: Reports: 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 Other TACKING MACHINE OPERATOR History: thickened endometrium, post menopausal bleeding, endometrial hyperplasia, condyloma acuminatum, Right breast cyst drainage, , laparotomy Musculoskeletal History: Reports: Fracture, Osteoarthritis Other Musculoskeletal History: right index finger mallet deformity, plantar fasciitis Neurological History: Reports: Neuropathy, Diabetic Other Neuro History: cerviclagia Psychiatric History: Reports: Anxiety, Depression Endocrine/Metabolic History: Reports: Diabetes, Type II, Obesity/BMI 30+ Hematologic History: Reports: None Immunologic History: Reports: None Oncologic (Cancer) History: Reports: Uterine Dermatologic History: Reports: Other (See Below) Other Dermatologic History: lipoma excision, contusion to face, linear morphea, lipoma excison - Infectious Disease History Infectious Disease History: Reports: Chicken Pox, Influenza, Measles, Mumps, Shingles - Past Surgical History GI Surgical History: Reports: Colonoscopy Female Surgical History: Reports: D&C, Hysterectomy Dermatological Surgical History: Reports: Other (See Below) Social & Family History - Family History Family Medical History: Noncontributory - Tobacco Use Smoking Status *Q: Current Every Day Smoker Years of Tobacco use: 30 Packs/Tins Daily: 0.3 - Caffeine Use Caffeine Use: Reports: Coffee, Energy Drinks, Soda - Recreational Drug Use Recreational Drug Use: No - Living Situation & Occupation Living situation: Reports: , with Family (Son) Occupation: Unemployed ED ROS GENERAL - Review of Systems Review Of Systems: See Below Constitutional: Reports: Malaise, Weakness, Fatigue, Decreased Appetite. Denies: Fever, Chills HEENT: Reports: No Symptoms Respiratory: Reports: Shortness of Breath, Cough, Sputum. Denies: Wheezing, Pleuritic Chest Pain Cardiovascular: Reports: Blood Pressure Problem, Dyspnea on Exertion. Denies: Chest Pain (Very rare sputum production. Usually white in color), Claudication, Edema, Lightheadedness, Orthopnea Endocrine: Reports: Fatigue GI/Abdominal: Reports: Abdominal Pain (Right kaylie-abdominal pain. Seems to start in the right flank.), Decreased Appetite, Nausea. Denies: Constipation, Diarrhea, Vomiting : Reports: Flank Pain, Frequency (Right side), Other (Dark-colored urine.) Musculoskeletal: Reports: Neck Pain, Shoulder Pain, Back Pain (Chronic low back pain with degenerative disc disease with spinal stenosis apparently on previous CT exams) Skin: Reports: No Symptoms Neurological: Reports: Other (Dickler pain into both buttocks worse on the right side as compared to the left.) Psychiatric: Reports: Anxiety Hematologic/Lymphatic: Reports: No Symptoms Immunologic: Reports: No Symptoms ED EXAM,LOWER BACK PAIN/INJURY - Physical Exam Exam: See Below Exam Limited By: No Limitations General Appearance: Alert, WD/WN, Moderate Distress, Other (Appears somewhat lethargic and bit drowsy. Temperature is 36.3. Heart rate 106 and sinus at the bedside respiratory is 20 with O2 sats of 95% room air. BP 151/87.) Eye Exam: Bilateral Eye: Normal Inspection (No scleral icterus or blepharal pallor.), PERRL Throat/Mouth: Normal Lips, Normal Oropharynx, Other (Is mildly dry and coated.). No: Normal Teeth Head: Atraumatic, Normocephalic, Other Neck: Normal Inspection, Limited Range of Motion, Tender Lateral (But is on lateral rotation with pain laterally both sides of the cervical spine combined with degenerative arthritic change.) Respiratory/Chest: Lungs Clear (Creased air entry to the lower 20% of lung interiano bilaterally.), Normal Breath Sounds, Respiratory Distress (Mild tachypnea at rest.), Decreased Breath Sounds. No: Rales, Rhonchi, Wheezing Cardiovascular: Regular Rate, Rhythm, No Edema, No Murmur, No Rub, Tachycardia (Sinus tachycardia at rest). No: Normal Peripheral Pulses GI/Abdominal: Normal Bowel Sounds, Soft, Non-Tender, No Organomegaly, No Mass, Pelvis Stable, Other (Moderate obesity. This limits ability to palpate solid organs. No peritoneal signs. No evidence of gallbladder disease at this time. Negative Salgado sign) Back Exam: CVA Tenderness (R), Decreased Range of Motion (A painful for her to sit up on the gurney and required assistance by myself.), Vertebral Tenderness (Bilaterally along the lumbar spine without significant muscle spasm.). No: Full Range of Motion, CVA Tenderness (L) (Perhaps mildly worse in the left side.), Muscle Spasm Extremities: Non-Tender, Other (Evidence of osteoarthritic changes both knees.). No: Normal Range of Motion Neurological: Alert, Normal Dorsiflexion, CN II-XII Intact, Normal Plantar Flexion, Oriented x 3, Straight Leg Raise (L) (Positive at 40 degrees. Could get her to 60 degrees on the left side.), Straight Leg Raise (R). No: Normal Gait DTR - Lower Extremities: 0: Ankle (R), Ankle (L), 1+: Knee (R), Knee (L) Psychiatric: Normal Affect, Normal Mood, Flat Affect Skin Exam: Warm, Dry, Intact, Normal Color, No Rash Course - Vital Signs Last Recorded V/S: Last Vital Signs Temp 36.3 C 01/10/20 07:10 Pulse 106 H 01/10/20 07:10 Resp 20 01/10/20 07:10 BP 151/87 H 01/10/20 07:10 Pulse Ox 95 01/10/20 07:10 - Orders/Labs/Meds Orders: Active Orders 24 hr Category Date Time Status Sodium Chloride 0.9% [Normal Saline] 1,000 ml Med 01/10/20 07:45 Active IV ASDIRECTED Medication Orders Sodium Chloride (Normal Saline) 1,000 mls @ 250 mls/hr IV ASDIRECTED AP Last Admin: 01/10/20 08:07 Dose: 250 mls/hr Documented by: SANDIE Labs: Laboratory Tests 01/10/20 01/10/20 01/10/20 Range/Units 07:55 08:00 08:00 WBC 8.34 (3.98-10.04) K/mm3 RBC 4.41 (3.98-5.22) M/mm3 Hgb 13.1 (11.2-15.7) gm/dl Hct 40.7 (34.1-44.9) % MCV 92.3 (79.4-94.8) fl MCH 29.7 (25.6-32.2) pg MCHC 32.2 (32.2-35.5) g/dl RDW Std Deviation 45.8 (36.4-46.3) fL Plt Count 379 H (182-369) K/mm3 MPV 8.5 L (9.4-12.3) fl Neut % (Auto) 60.0 (34.0-71.1) % Lymph % (Auto) 29.4 (19.3-51.7) % [place] % (Auto) 5.0 (4.7-12.5) % Eos % (Auto) 5.3 (0.7-5.8) Baso % (Auto) 0.2 (0.1-1.2) % Neut # (Auto) 5.00 (1.56-6.13) K/mm3 Lymph # (Auto) 2.45 (1.18-3.74) K/mm3 [place] # (Auto) 0.42 H (0.24-0.36) K/mm3 Eos # (Auto) 0.44 H (0.04-0.36) K/mm3 Baso # (Auto) 0.02 (0.01-0.08) K/mm3 Sodium 138 (136-145) mEq/L Potassium 3.7 (3.5-5.1) mEq/L Chloride 101 (98-107) mEq/L Carbon Dioxide 31 (21-32) mEq/L Anion Gap 9.7 (5-15) BUN 7 (7-18) mg/dL Creatinine 0.8 (0.55-1.02) mg/dL Est Cr Clr Drug Dosing 70.23 mL/min Estimated GFR (MDRD) > 60 (>60) mL/min BUN/Creatinine Ratio 8.8 L (14-18) Glucose 174 H (74-106) mg/dL Calcium 9.1 (8.5-10.1) mg/dL Total Bilirubin 0.5 (0.2-1.0) mg/dL GGT (5-55) U/L AST 16 (15-37) U/L ALT 17 (14-59) U/L Alkaline Phosphatase 178 H (46-116) U/L C-Reactive Protein 5.0 H* (<1.0) mg/dL Total Protein 7.7 (6.4-8.2) g/dl Albumin 3.5 (3.4-5.0) g/dl Globulin 4.2 gm/dL Albumin/Globulin Ratio 0.8 L (1-2) Urine Color Yellow (Yellow) Urine Appearance Cloudy H (Clear) Urine pH 6.0 (5.0-8.0) Ur Specific [place] 1.025 (1.005-1.030) Urine Protein Trace H (Negative) Urine Glucose (UA) Negative (Negative) Urine Ketones Negative (Negative) Urine Occult Blood Trace-lysed H (Negative) Urine Nitrite Negative (Negative) Urine Bilirubin Negative (Negative) Urine Urobilinogen 0.2 (0.2-1.0) Ur Leukocyte Esterase Negative (Negative) Urine RBC 0-5 (0-5) /hpf Urine WBC 0-5 (0-5) /hpf Ur Epithelial Cells 20-30 H (0-5) /hpf Urine Bacteria Few (FEW) /hpf Urine Mucus Few (FEW) /hpf 01/10/20 Range/Units 08:00 WBC (3.98-10.04) K/mm3 RBC (3.98-5.22) M/mm3 Hgb (11.2-15.7) gm/dl Hct (34.1-44.9) % MCV (79.4-94.8) fl MCH (25.6-32.2) pg MCHC (32.2-35.5) g/dl RDW Std Deviation (36.4-46.3) fL Plt Count (182-369) K/mm3 MPV (9.4-12.3) fl Neut % (Auto) (34.0-71.1) % Lymph % (Auto) (19.3-51.7) % [place] % (Auto) (4.7-12.5) % Eos % (Auto) (0.7-5.8) Baso % (Auto) (0.1-1.2) % Neut # (Auto) (1.56-6.13) K/mm3 Lymph # (Auto) (1.18-3.74) K/mm3 [place] # (Auto) (0.24-0.36) K/mm3 Eos # (Auto) (0.04-0.36) K/mm3 Baso # (Auto) (0.01-0.08) K/mm3 Sodium (136-145) mEq/L Potassium (3.5-5.1) mEq/L Chloride (98-107) mEq/L Carbon Dioxide (21-32) mEq/L Anion Gap (5-15) BUN (7-18) mg/dL Creatinine (0.55-1.02) mg/dL Est Cr Clr Drug Dosing mL/min Estimated GFR (MDRD) (>60) mL/min BUN/Creatinine Ratio (14-18) Glucose (74-106) mg/dL Calcium (8.5-10.1) mg/dL Total Bilirubin (0.2-1.0) mg/dL GGT 41 (5-55) U/L AST (15-37) U/L ALT (14-59) U/L Alkaline Phosphatase (46-116) U/L C-Reactive Protein (<1.0) mg/dL Total Protein (6.4-8.2) g/dl Albumin (3.4-5.0) g/dl Globulin gm/dL Albumin/Globulin Ratio (1-2) Urine Color (Yellow) Urine Appearance (Clear) Urine pH (5.0-8.0) Ur Specific [place] (1.005-1.030) Urine Protein (Negative) Urine Glucose (UA) (Negative) Urine Ketones (Negative) Urine Occult Blood (Negative) Urine Nitrite (Negative) Urine Bilirubin (Negative) Urine Urobilinogen (0.2-1.0) Ur Leukocyte Esterase (Negative) Urine RBC (0-5) /hpf Urine WBC (0-5) /hpf Ur Epithelial Cells (0-5) /hpf Urine Bacteria (FEW) /hpf Urine Mucus (FEW) /hpf Meds: Medications Generic Name Dose Route Start Last Admin Trade Name Freq PRN Reason Stop Dose Admin Sodium Chloride 1,000 mls @ 250 mls/hr 01/10/20 07:45 01/10/20 08:07 Normal Saline IV 250 mls/hr ASDIRECTED AP Administration Discontinued Medications Generic Name Dose Route Start Last Admin Trade Name Gill PRN Reason Stop Dose Admin Hydromorphone HCl 0.5 mg 01/10/20 07:33 01/10/20 08:05 Dilaudid IVPUSH 01/10/20 07:34 0.5 mg ONETIME ONE Administration Hydromorphone HCl 0.5 mg 01/10/20 08:48 01/10/20 09:25 Dilaudid IVPUSH 01/10/20 08:49 0.5 mg ONETIME ONE Administration Ondansetron HCl 4 mg 01/10/20 07:33 01/10/20 08:03 Zofran IVPUSH 01/10/20 07:34 4 mg ONETIME ONE Administration - Radiology Interpretation Free Text/Narrative:: 54-year-old female presents to the ED with right flank pain rating down into her right hemiabdomen. It is mixed with chronic lumbar spine pain due to degenerative arthritic changes with radiculopathy into both buttocks. Clinically she has of nerve root entrapment bilaterally with straight leg positivity at 40 degrees on the right and left legs. I could get her to 60 degrees on the left but not on the right side. Very minimal right-sided c ostovertebral angle tenderness. She is afebrile. Her sister has kidney stones but she is never been diagnosed with them. Plan IV normal saline at 250 mils per hour. Given Dilaudid 2.5 mg IV with Zofran 4 mg IV. Urinalysis to be obtained routine labs to be done. - Re-Assessments/Exams Free Text/Narrative Re-Assessment/Exam: 01/10/20 08:10 I have reviewed most recent ultrasound of the pelvis done 28 December. It revealed no gynecological abnormalities. In particular was no evidence of a right ovarian cyst. She has had previous hysterectomy and left oophorectomy. I also reviewed a CT of the abdomen pelvis done with contrast from May of this year. No stones were identified in either kidney. No gallstones were noted either. However the gallbladder was poorly filled. Liver appears to have fatty infiltration. Lumbar spine was visualized quite well on this study and there is degenerative change with vacuum phenomena at the L5-S1 disc space. The remainder of the discs appear to be normal. There was mild osteoarthritic changes but no obvious neuroforaminal encroachment at that time. 01/10/20 08:43 White count is 8.34 with 60% neutrophils on the auto differential. Hemoglobin is 13.1 with hematocrit of 40.7. Platelet count is elevated at 379,000. Urinalysis is cloudy with trace of protein trace of lysed occult blood leukocyte Estrace reported to be negative. Awaiting the micro. And is having more pain at this time. Will repeat Dilaudid 0.5 mg IV. 01/10/20 08:57 urinalysis micro shows 20-30 epithelial cells but no signs of RBCs or white blood cells. Awaiting the CMP and CRP at this time. Free Text/Narrative Re-Assessment/Exam: 01/10/20 09:26 Odium 138 with a potassium of 3.7. Chloride 101 with a bicarb of 31. Anion gap is 9.7 with a BUN of 7 and a creatinine of 0.8. GFR is greater than 60. Glucose is 174. Calcium is 9.1. Liver function normal alk phos stays mildly elevated at 178. Alk phosphatase does not appear to be coming from liver. Concern for possible bone source to be considered. I will order a GGT evaluation which will rule out the liver as the source of elevated alk phosphatase. C-reactive protein is 5.0. Total protein is 7.7 with a albumin fraction of 3.5. 01/10/20 10:06 CRP returned at 5.0 suggesting some degree of an underlying inflammatory process. I Suggest this patient should have a bone scan to look for potential source of malignancy. I have discussed the findings with the patient. It appears that her back pain has been gradually getting worseover the last 4 months, concerning for possible underlying malignant process. Oshea states she rarely uses naproxen medication. I am going to place her on Meloxicam 15 mg once daily for a trial medication of 14 days to see if this alleviates some of her pain. Renal function is normal. There is an interaction between NSAIDs and serotonin reuptake inhibitors which could increase her po tential for bleeding but this risk is overall low. She is to follow-up with her primary care provider to arrange for a outpatient bone scan. Patient is quite drowsy from medication. Departure - Departure Time of Disposition: 10:16 Disposition: Home, Self-Care 01 Condition: Fair Clinical Impression: Back pain at L4-L5 level, Elevated alkaline phosphatase measurement - Discharge Information *PRESCRIPTION DRUG MONITORING PROGRAM REVIEWED*: Not Applicable *COPY OF PRESCRIPTION DRUG MONITORING REPORT IN PATIENT MEAGAN: Not Applicable Prescriptions: Meloxicam 15 mg PO DAILY #14 tablet Instructions: Chronic Back Pain, [id number] Referrals: Louisa Mohamud NP [Primary Care Provider] - Forms: ED Department Discharge Additional Instructions: Evaluation in the emergency room this morning in regards to concerns of developing possible urinary tract infection with right flank pain and increased low back pain. No associated fever or chills. Urine dark in color and does burn intermittently with voiding. History of chronic low back pain due to degenerative arthritic change in the lower back particular at the L5-S1 level. This is appreciated on previous CT scan of the abdomen done in May. CT scan at that time did not reveal any signs of kidney stones. The gallbladder also did not show any obvious stones on CT scan evaluation. Examination today revealed mild tenderness over the right flank as compared to the left. Marked lower back pain with need for assistance even sit up in bed. Lab test done do not reveal any signs of a urinary tract infection. Urine was slightly cloudy and dark more to do with dehydration. Lab test did reveal that there is an underlying inflammatory process with an elevation of your alk phosphatase enzyme in your blood which you indicated have been noted on last evaluation. Concern is for this coming out of bone. I am going to ask you to follow-up with your primary care provider to arrange for a outpatient bone scan. Continue pain medications as you have been taking. Suggest a trial of meloxicam 15 mg once daily for 2 weeks to see if this will reduce pain and inflammation in your back. During the time you are taking the meloxicam medication you should not take Naprosyn medication. Sepsis Event Note (ED) - Evaluation Sepsis Screening Result: No Definite Risk - Focused Exam Vital Signs: Vital Signs Temp Pulse Resp BP Pulse Ox 01/10/20 07:10 36.3 C 106 H 20 151/87 H 95 - My Orders Last 24 Hours: My Active Orders 01/10/20 07:45 Sodium Chloride 0.9% [Normal Saline] 1,000 ml IV ASDIRECTED - Assessment/Plan Last 24 Hours: My Active Orders 01/10/20 07:45 Sodium Chloride 0.9% [Normal Saline] 1,000 ml IV ASDIRECTED
[2020-01-10] MEDS ORDERED: Sodium Chloride 0.9% 1,000 ML IV SCH (07:45)
[2020-01-10 10:39] VITALS: BP 137/82; PULSE 100
== END 2020-01-10 10:35 | disposition home or self-care (01) ==
LOC: JD.ED 07:07
DX: M54.5 Low back pain (principal); R74.8 Abnormal levels of other serum enzymes; R00.0 Tachycardia, unspecified; R06.82 Tachypnea, not elsewhere classified; I10 Essential (primary) hypertension; K21.9 Gastro-esophageal reflux disease without esophagitis; E11.40 Type 2 diabetes mellitus with diabetic neuropathy, unspecified; E66.9 Obesity, unspecified; F41.9 Anxiety disorder, unspecified; F32.9 Major depressive disorder, single episode, unspecified; M17.0 Bilateral primary osteoarthritis of knee; F17.210 Nicotine dependence, cigarettes, uncomplicated; Z90.710 Acquired absence of both cervix and uterus; Z88.1 Allergy status to other antibiotic agents; Z88.5 Allergy status to narcotic agent; Z79.899 Other long term (current) drug therapy
CPT/HCPCS: 36415; 80053; 81001; 82977; 85025; 86140; 96361; 96374; 96375; 96376; 99283; J1170; J2405; J7030; 99284

== ENCOUNTER 2020-01-18 17:39 | Emergency (ER) | payer MEDICAID ==
[2020-01-18 18:13] VITALS: BP 142/96; PULSE 107
[2020-01-18] MEDS ORDERED: FLU VACC QS2020-21(6MOS UP)/PF 60 MCG/0.5 ML SYRINGE IM ONE (18:30)
--- NOTE | 2020-01-18 18:37 | EDM.PDOC ---
ED HPI GENERAL MEDICAL PROBLEM - General Chief Complaint: General Stated Complaint: DIZZY/MEMORY LOSS/BACK PAIN Time Seen by Provider: 01/18/20 18:34 Source of Information: Reports: Patient History Limitations: Reports: No Limitations - History of Present Illness INITIAL COMMENTS - FREE TEXT/NARRATIVE: 54-year-old female presents to the ED reporting recurrent syncopal events where she has fainted or passed out and fallen down to the floor. She has been doing this off and on for the last 3 days. She has had to call her son to come help her up off the floor she has been too weak to get up. She states her appetite is been very poor taking in only a small amount of fluids the last 3 days. Denies any diarrhea. Denies any cough or sputum production. She has had some chills. Occasional nausea. Onset: Sudden Onset Date: 01/16/20 Duration: Day(s):, Getting Worse, Recurring Location: Reports: Head, Back ( mid thoracic spine and L-5 area and over the sacrum), Lower Extremity, Left (bruise to lateral Lt knee and tigh. ). Denies: Upper Extremity, Left, Lower Extremity, Right (bruisesto Rt medial knee. ) Quality: Reports: Ache, Throbbing Severity: Moderate (7-8/10) Improves with: Reports: None Worsens with: Reports: Other (standing up and walking) Associated Symptoms: Reports: Confusion (perhaps spoke to her gospel worker yesterday and was ixed up on the time of day. 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: Reports: Other (see below) Other Treatments HOT DIP PLATING SUPERVISOR: 100mg tramadol Lower Back Pain Score (Numeric/FACES): 8 - Related Data Allergies Allergy/AdvReac Type Severity Reaction Status Date / Time clindamycin Allergy Severe Hives Verified 01/18/20 18:13 morphine Allergy Severe Hives Uncoded 01/18/20 18:13 Home Meds: Home Meds Pantoprazole [ProTONIX] 40 mg PO DAILY 10/02/17 [History] traMADol [Ultram] 100 mg PO TID 10/02/17 [History] ALPRAZolam [Xanax] 1 mg PO Q8H PRN 06/14/18 [History] amLODIPine Besylate [Norvasc] 10 mg PO DAILY 06/03/19 [History] FLUoxetine [PROzac] 80 mg PO DAILY 10/14/19 [History] Naproxen [Naprosyn] 500 mg PO Q12HR 5 Days #10 tab 10/14/19 [Rx] Hydrocodone/Acetaminophen [Buckley 10-325 Tablet] 10 - 325 mg PO TID PRN 01/10/20 [History] Past Medical History HEENT History: Reports: Allergic Rhinitis Cardiovascular History: Reports: High Cholesterol, Hypertension Respiratory History: Reports: Sleep Apnea Gastrointestinal History: Reports: GERD Genitourinary History: Reports: UTI, Recurrent, Other (See Below) Other Genitourinary History: gential warts SCALEMAN History: Reports: Ectopic Other SCALEMAN History: thickened endometrium, post menopausal bleeding, endometrial hyperplasia, condyloma acuminatum, Right breast cyst drainage, , laparotomy Musculoskeletal History: Reports: Fracture, Osteoarthritis Other Musculoskeletal History: right index finger mallet deformity, plantar fasciitis Neurological History: Reports: Neuropathy, Diabetic Other Neuro History: cerviclagia Psychiatric History: Reports: Anxiety, Depression Endocrine/Metabolic History: Reports: Diabetes, Type II, Obesity/BMI 30+ Hematologic History: Reports: None Immunologic History: Reports: None Oncologic (Cancer) History: Reports: Uterine Dermatologic History: Reports: Other (See Below) Other Dermatologic History: lipoma excision, contusion to face, linear morphea, lipoma excison - Infectious Disease History Infectious Disease History: Reports: Chicken Pox, Influenza, Measles, Mumps, Shingles - Past Surgical History Head Surgeries/Procedures: Reports: None GI Surgical History: Reports: Colonoscopy Female Surgical History: Reports: D&C, Hysterectomy Dermatological Surgical History: Reports: Other (See Below) Social & Family History - Family History Family Medical History: Noncontributory - Tobacco Use Smoking Status *Q: Never Smoker - Caffeine Use Caffeine Use: Reports: Soda - Recreational Drug Use Recreational Drug Use: Yes Drug Use in Last 12 Months: No - Living Situation & Occupation Living situation: Reports: , with Family (Son) Occupation: Unemployed ED ROS GENERAL - Review of Systems Review Of Systems: See Below Constitutional: Reports: Chills, Malaise, Weakness, Fatigue, Decreased Appetite. Denies: Fever, Weight Loss HEENT: Reports: No Symptoms Respiratory: Reports: Shortness of Breath. Denies: Wheezing, Pleuritic Chest Pain, Cough, Sputum Cardiovascular: Reports: Blood Pressure Problem, Dyspnea on Exertion, Lightheadedness. Denies: Chest Pain, Claudication, Edema, Orthopnea, Palpitations Endocrine: Reports: Fatigue GI/Abdominal: Reports: Decreased Appetite, Nausea ( occassional). Denies: Constipation, Diarrhea, Vomiting : Reports: Frequency Musculoskeletal: Reports: Joint Pain ( knees and lower back and neck/ ) Skin: Reports: Bruising Neurological: Reports: Confusion ( reports confusion and trouble remebering) Psychiatric: Reports: Anxiety Hematologic/Lymphatic: Reports: No Symptoms Immunologic: Reports: No Symptoms ED EXAM, GENERAL - Physical Exam Exam: See Below Exam Limited By: No Limitations General Appearance: Alert, WD/WN, Anxious, Mild Distress, Other (Temperature is reportedly 37.1 but she feels much warmer than this. Heart rate was 107 and sinus at the bedside. Respiratory is 18 BP 1 4296 O2 sats 96% room air) Eye Exam: Bilateral Eye: Normal Inspection, PERRL (No scleral icterus or blepharal pallor.) Ears: Normal TMs Throat/Mouth: Other (Tongue is mildly dry and coated.) Head: Other (No outward signs of head or neck trauma.) Neck: Normal Inspection, Full Range of Motion, Tender Lateral (Both lateral aspects of the cervical spine without evidence of fracture with her range of motion.). No: Lymphadenopathy (L), Lymphadenopathy (R) Respiratory/Chest: No Respiratory Distress, Lungs Clear, Normal Breath Sounds, No Accessory Muscle Use Cardiovascular: Normal Peripheral Pulses, No Edema (Acute cardiac arrest.), No Gallop, No Murmur, No Rub, Tachycardia Peripheral Pulses: 2+: Carotid (L), Carotid (R), Posterior Tibial (L), Posterior Tibial (R), Dorsalis Pedis (L), Dorsalis Pedis (R) GI/Abdominal: Normal Bowel Sounds, Soft, Non-Tender, No Organomegaly, No Abnormal Bruit, Pelvis Stable, Other (Moderately obese.) Back Exam: Other (No outward signs of trauma. There is no bruises or contusions. She has pain mostly at the thoracic 11/22/2009 level which is very tender even to light touch. She has pain over the L5-S1 facet joint and sacrum. There is some swelling in this area but no bruising.) Extremities: Normal Range of Motion, Non-Tender, No Pedal Edema, Other (Fredis small bruises of 2 or 3 days antique witty both medial and lateral knees.) Neurological: Alert, Oriented, CN II-XII Intact, Normal Cognition Psychiatric: Normal Affect, Normal Mood Skin Exam: Warm, Dry, Intact, Normal Color, No Rash EKG INTERPRETATION EKG Date: 01/18/20 Time: 18:43 Rhythm: Other Rate (Beats/Min): 103 [place]: Normal P-Wave: Enlarged (Left atrial hypertrophy pattern) QRS: Other (Early R wave transition at V3 consider septal hypertrophy pattern) ST-T: Other (Mild T wave flattening aVL and lead to 3 and aVF and V6. Nonspecific finding) QT: Prolonged (Mildly prolonged) EKG Interpretation Comments: Abnormal ECG Course - Vital Signs Last Recorded V/S: Last Vital Signs Temp 37.1 C 01/18/20 18:07 Pulse 107 H 01/18/20 18:07 Resp 18 01/18/20 18:07 BP 142/96 H 01/18/20 18:07 Pulse Ox 96 01/18/20 18:07 - Orders/Labs/Meds Orders: Active Orders 24 hr Category Date Time Status Chest 1V Frontal [CR] Stat Exams 01/18/20 18:35 Taken Head wo Cont [CT] Stat Exams 01/18/20 18:48 Taken Lumbar Spine wo Cont [CT] Stat Exams 01/18/20 18:46 Taken Thoracic Spine wo Cont [CT] Stat Exams 01/18/20 18:45 Taken CORONAVIRUS COVID-19 PCR PHL Stat Lab 01/18/20 21:50 Received Labs: Laboratory Tests 01/18/20 01/18/20 01/18/20 Range/Units 19:30 19:30 19:30 WBC 6.05 (3.98-10.04) K/mm3 RBC 4.73 (3.98-5.22) M/mm3 Hgb 13.8 (11.2-15.7) gm/dl Hct 41.8 (34.1-44.9) % MCV 88.4 D (79.4-94.8) fl MCH 29.2 (25.6-32.2) pg MCHC 33.0 (32.2-35.5) g/dl RDW Std Deviation 42.9 (36.4-46.3) fL Plt Count 287 D (182-369) K/mm3 MPV 8.6 L (9.4-12.3) fl Neut % (Auto) 68.5 (34.0-71.1) % Lymph % (Auto) 19.8 (19.3-51.7) % Becker % (Auto) 8.8 (4.7-12.5) % Eos % (Auto) 1.8 (0.7-5.8) Baso % (Auto) 0.8 (0.1-1.2) % Neut # (Auto) 4.14 (1.56-6.13) K/mm3 Lymph # (Auto) 1.20 (1.18-3.74) K/mm3 Becker # (Auto) 0.53 H (0.24-0.36) K/mm3 Eos # (Auto) 0.11 (0.04-0.36) K/mm3 Baso # (Auto) 0.05 (0.01-0.08) K/mm3 Manual Slide Review Sodium 134 L (136-145) mEq/L Potassium 3.7 (3.5-5.1) mEq/L Chloride 98 (98-107) mEq/L Carbon Dioxide 25 (21-32) mEq/L Anion Gap 14.7 (5-15) BUN 9 (7-18) mg/dL Creatinine 0.9 (0.55-1.02) mg/dL Est Cr Clr Drug Dosing 62.42 mL/min Estimated GFR (MDRD) > 60 (>60) mL/min BUN/Creatinine Ratio 10.0 L (14-18) Glucose 116 H (74-106) mg/dL Calcium 8.6 (8.5-10.1) mg/dL Magnesium 1.8 (1.8-2.4) mg/dl Ferritin (8-252) ng/ml Total Bilirubin 0.4 (0.2-1.0) mg/dL AST 40 H (15-37) U/L ALT 28 (14-59) U/L Alkaline Phosphatase 160 H (46-116) U/L Lactate Dehydrogenase (81-234) U/L Troponin I < 0.017 (0.00-0.056) ng/mL C-Reactive Protein 3.9 H* (<1.0) mg/dL NT-Pro-B Natriuret Pep 26 (0-125) pg/mL Total Protein 7.5 (6.4-8.2) g/dl Albumin 3.3 L (3.4-5.0) g/dl Globulin 4.2 gm/dL Albumin/Globulin Ratio 0.8 L (1-2) 01/18/20 01/18/20 Range/Units 19:30 19:30 WBC (3.98-10.04) K/mm3 RBC (3.98-5.22) M/mm3 Hgb (11.2-15.7) gm/dl Hct (34.1-44.9) % MCV (79.4-94.8) fl MCH (25.6-32.2) pg MCHC (32.2-35.5) g/dl RDW Std Deviation (36.4-46.3) fL Plt Count (182-369) K/mm3 MPV (9.4-12.3) fl Neut % (Auto) (34.0-71.1) % Lymph % (Auto) (19.3-51.7) % Becker % (Auto) (4.7-12.5) % Eos % (Auto) (0.7-5.8) Baso % (Auto) (0.1-1.2) % Neut # (Auto) (1.56-6.13) K/mm3 Lymph # (Auto) (1.18-3.74) K/mm3 Becker # (Auto) (0.24-0.36) K/mm3 Eos # (Auto) (0.04-0.36) K/mm3 Baso # (Auto) (0.01-0.08) K/mm3 Manual Slide Review Sodium (136-145) mEq/L Potassium (3.5-5.1) mEq/L Chloride (98-107) mEq/L Carbon Dioxide (21-32) mEq/L Anion Gap (5-15) BUN (7-18) mg/dL Creatinine (0.55-1.02) mg/dL Est Cr Clr Drug Dosing mL/min Estimated GFR (MDRD) (>60) mL/min BUN/Creatinine Ratio (14-18) Glucose (74-106) mg/dL Calcium (8.5-10.1) mg/dL Magnesium (1.8-2.4) mg/dl Ferritin 356 H (8-252) ng/ml Total Bilirubin (0.2-1.0) mg/dL AST (15-37) U/L ALT (14-59) U/L Alkaline Phosphatase (46-116) U/L Lactate Dehydrogenase 318 H (81-234) U/L Troponin I (0.00-0.056) ng/mL C-Reactive Protein (<1.0) mg/dL NT-Pro-B Natriuret Pep (0-125) pg/mL Total Protein (6.4-8.2) g/dl Albumin (3.4-5.0) g/dl Globulin gm/dL Albumin/Globulin Ratio (1-2) Meds: Medications Discontinued Medications Generic Name Dose Route Start Last Admin Trade Name Freq PRN Reason Stop Dose Admin Hydromorphone HCl 1 mg 01/18/20 18:44 01/18/20 19:30 Dilaudid IVPUSH 01/18/20 18:45 1 mg ONETIME ONE Administration Hydromorphone HCl 0.5 mg 01/18/20 20:52 01/18/20 21:08 Dilaudid IVPUSH 01/18/20 20:53 0.5 mg ONETIME ONE Administration Sodium Chloride 1,000 mls @ 500 mls/hr 01/18/20 18:45 01/18/20 19:30 Normal Saline IV 500 mls/hr ASDIRECTED AP Administration Ibuprofen 600 mg 01/18/20 18:45 01/18/20 19:29 Motrin PO 01/18/20 18:46 600 mg ONETIME ONE Administration Influenza Virus Vaccine 1 each 01/18/20 18:16 Pharmacy To Dose - Influenza Vaccine IM 01/18/20 18:17 ONETIME ONE Influenza Virus Vaccine 60 mcg 01/18/20 18:30 01/18/20 21:45 Fluzone Quad [id number] Syringe IM 01/18/20 18:31 60 mcg .ONCE ONE Administration Metoclopramide HCl 7.5 mg 01/18/20 18:44 01/18/20 19:29 Reglan IVPUSH 01/18/20 18:45 7.5 mg ONETIME ONE Administration - Radiology Interpretation Free Text/Narrative:: 54-year-old female presents to the ED with history of recurrent falls at home which he states are syncopal or sudden collapses to the floor. She states she did fall 2 nights ago and was unable to get up from the floor requiring her son's assistance. She has bruises on her knees. No apparent injuries to the upper extremities. Is unclear whether she hit her head. She denies any nausea or vomiting. Complains of diffuse mid and lower back pain. No bruises or abrasions to the thoracic or lumbar spine area. Clinically she is very warm to palpation suggesting underlying febrile illness of unclear etiology. She denies cough or sputum production. She had a COVID test 10 days ago which was negative. Plan IV normal saline at 500 mils per hour. Given Motrin 600 mg p.o. for fever relief. Dilaudid 1 mg IV with Reglan 7.5 mg IV for back pain relief. She will have CT head, CT thoracic and lumbar spine. Routine labs to be performed including serum ferritin and LDH and a troponin. - Re-Assessments/Exams Free Text/Narrative Re-Assessment/Exam: 01/18/20 19:41 CT of the head has been completed. It reveals no intracranial injuries or bleeding. There is no mass-effect. No fractures within the skull. CT of the thoracic and lumbar spine have been completed. They reveal normal alignment without any compression fractures. Lumbar lordosis is preserved mild degenerative arthritic changes appreciated in the vertebra with both with anterior and posterior arthritic degenerative change. No definite disc herniation is appreciated. There is mild narrowing of the L5-S1 disc space. She has 0.4 mm grade 1 anterolisthesis of L4 on L5. Facet joint arthropathy appreciate this area. No fractures within the sacrum are evident. No labs are yet back. Chest x-ray 1 view done due to shortness of breath. Unremarkable with no consolidation. Pleural spaces are unremarkable with no pleural effusion or pneumothorax. Heart is unremarkable with no cardiomegaly. Bones repeat are unremarkable 01/18/20 20:09 White count is normal at 6.05. Auto differential shows 68.5% neutrophils. Hemoglobin is 13.8 with hematocrit of 41.8. Platelet count 287,000. 01/18/20 21:21 This reveals a sodium of 134 and a potassium of 3.7. Chloride is 98 with a bicarb of 25. Anion gap is 14.7. BUN is 9 with a creatinine of 0.9. GFR is greater than 60. Glucose is 116 with a calcium of 8.6. Magnesium is 1.8. Serum ferritin is elevated at 356. Bilirubin is 0.4 AST is 40 with an ALT of 28. Alk phosphatase is normal at 160. LDH is elevated at 318. Troponin I is less than 0.017. C-reactive protein is elevated at 3.9. BNP is 26 with a c reatinine of 7.5. Albumin fraction is 3.3. 01/18/20 21:41 patient in the emergency room today in regards to recurrent syncope/collapse episodes at home with recurrent injuries to the lower back particular the lumbosacral junction and the thoracolumbar junction where your thoracic spine joins onto your lumbar spine in your back. CT of your brain reveals no sign of stroke or abnormalities. CT of your thoracic and lower back also did not reveal any broken bones or compression fractures. Chest x-ray was also normal. Blood test done revealed some elevated markers in your bloodstream concerning for possible underlying COVID-19 illness although you have very few symptoms. Other than weakness and low-grade fever you would really not have any of these symptoms such as severe cough etc. My concerns are that reason for falling at home is due to too much medication. Is to cut back on the use of Xanax and only use 0.5 mg when she develops a panic attack. By history she may be taking 100 mg of tramadol 4 times daily as well as Buckley tabs for her back pain. Departure - Departure Time of Disposition: 21:42 Disposition: Home, Self-Care 01 Condition: Fair Clinical Impression: Contusion of lower back and pelvis, subsequent encounter, Generalized weakness, Decreased appetite, Contusion of buttock, Back pain at L4-L5 level Fall as cause of accidental injury at home as place of occurrence Qualifiers: Encounter type: initial encounter Qualified Code(s): W19.XXXA - Unspecified fall, initial encounter - Discharge Information *PRESCRIPTION DRUG MONITORING PROGRAM REVIEWED*: Not Applicable *COPY OF PRESCRIPTION DRUG MONITORING REPORT IN PATIENT MEAGAN: Not Applicable Instructions: Acute Back Pain, Adult Referrals: Louisa Mohamud NP [Primary Care Provider] - Forms: ED Department Discharge Additional Instructions: Evaluation in the emergency room today in regards to recurrent syncope/collapse is at home with falls primarily onto your back with increased pain in the thoracolumbar spine where the thoracic spine joins onto the lumbar spine over the lower part of your spine and injury and contusion to the lower part of your lumbar spine and the sacrum the bone between the pelvic bones in your lower back. Both of these show swelling without any obvious bruising at this time. CT of your brain revealed no evidence of stroke. Chest x-ray was clear with no signs of infection or pneumonia. CT scans of the thoracic and lumbar spines do not reveal any broken bones. Mild degenerative changes appropriate for your age appreciated. You were treated with a liter of intravenous fluids while in the ED to provide rehydration since you have not been eating or drinking well. You have received Dilaudid medication 1 mg IV x2 doses for pain relief. My concern is that medication at home may not being agree with you with Xanax interacting with both tramadol and Buckley tablets to make you increasingly sedated and prone to falling. I would suggest if you need a Xanax tablet to cut it in half and t pj it only for panic attack. Use either the tramadol or Buckley every 6 hours for pain relief. Follow-up with your personal care physician if any further problems occur. Of note 1 of the markers was elevated in your bloodstream concerning for possible inflammation. COVID-19 screen was obtained before you were discharged and will be sent to [facility] with the results hopefully available within the next 2 days usually by Sunday. You do not have any of the signs or symptoms of COVID to be significantly worried about this. It is just a precaution since the disease is so prevalent in our community at this time Sepsis Event Note (ED) - Evaluation Sepsis Screening Result: No Definite Risk - Focused Exam Vital Signs: Vital Signs Temp Pulse Resp BP Pulse Ox 01/18/20 18:07 37.1 C 107 H 18 142/96 H 96 - My Orders Last 24 Hours: My Active Orders 01/18/20 18:35 Chest 1V Frontal [CR] Stat 01/18/20 18:45 Thoracic Spine wo Cont [CT] Stat 01/18/20 18:46 Lumbar Spine wo Cont [CT] Stat 01/18/20 18:48 Head wo Cont [CT] Stat 01/18/20 21:50 CORONAVIRUS COVID-19 PCR PHL Stat - Assessment/Plan Last 24 Hours: My Active Orders 01/18/20 18:35 Chest 1V Frontal [CR] Stat 01/18/20 18:45 Thoracic Spine wo Cont [CT] Stat 01/18/20 18:46 Lumbar Spine wo Cont [CT] Stat 01/18/20 18:48 Head wo Cont [CT] Stat 01/18/20 21:50 CORONAVIRUS COVID-19 PCR PHL Stat
[2020-01-18] MEDS ORDERED: Metoclopramide 10 MG/2 ML SDV IVPUSH ONE (18:44)
[2020-01-18] MEDS ORDERED: HYDROmorphone 1 MG/ML Syringe IVPUSH ONE (18:44)
[2020-01-18] MEDS ORDERED: Sodium Chloride 0.9% 1,000 ML IV SCH (18:45)
[2020-01-18] MEDS ORDERED: Ibuprofen 600 MG Tab PO ONE (18:45)
[2020-01-18] MEDS ORDERED: HYDROmorphone 0.5 MG/0.5 ML Syringe IVPUSH ONE (20:52)
--- NOTE | 2020-02-17 13:32 | CT ---
PROCEDURE INFORMATION: Exam: CT Lumbar Spine Without Contrast Exam date and time: 01/18/2020 7:02 PM Age: 54 years old Clinical indication: Low back pain; Prior surgery; Surgery date: 6+ months TECHNIQUE: Imaging protocol: Computed tomography images of the lumbar spine without contrast. COMPARISON: No relevant prior studies available. FINDINGS: Vertebrae: Lumbar lordosis is preserved. Vertebral body heights are maintained. No acute lumbar spine fracture. No suspicious lytic or osteo sclerotic lesions. Severe facet arthropathy at L4-L5. 0.4 cm grade 1 anterolisthesis of L4 on L5. No spondylolysis.Disc space heights are preserved. Discs/Spinal canal/Neural foramina: Mild bilateral L4-L5 foraminal stenosis. Soft tissues: Unremarkable. IMPRESSION: 1. No acute findings in the lumbar spine. 2. Chronic findings, as above. Thank you for allowing us to participate in the care of your patient. Dictated and Authenticated by: Popeye Franco MD 02/16/2020 4:32 PM Central Time ([place] & [place]) [place]
--- NOTE | 2020-02-17 13:33 | CT ---
PROCEDURE INFORMATION: Exam: CT Thoracic Spine Without Contrast Exam date and time: 01/18/2020 7:02 PM Age: 54 years old Clinical indication: Pain in thoracic spine; Without myelpathy or radiculopathy TECHNIQUE: Imaging protocol: Computed tomography images of the thoracic spine without contrast. COMPARISON: No relevant prior studies available. FINDINGS: Vertebrae: Thoracic vertebral body heights are intact. No acute fracture. Thoracic kyphosis is normal. Minimal spondylosis. Discs/Spinal canal/Neural foramina: Disc space heights are intact. No significant spinal canal stenosis. Soft tissues: Mild fatty liver replacement. IMPRESSION: No acute findings in the thoracic spine. Thank you for allowing us to participate in the care of your patient. Dictated and Authenticated by: Popeye Franco MD 02/16/2020 4:36 PM Central Time ([place] & [place]) [facility]
--- NOTE | 2020-02-17 16:30 | CT ---
PROCEDURE INFORMATION: Exam: CT Head Without Contrast Exam date and time: 01/18/2020 7:02 PM Age: 54 years old Clinical indication: Injury or trauma; Fall; Concussion/head injury; Without loss of consciousness TECHNIQUE: Imaging protocol: Computed tomography of the head without contrast. COMPARISON: CT Head wo Cont 11/07/2018 5:54 PM FINDINGS: Brain: No acute hemorrhage. Unremarkable white matter. No mass effect. Cerebral ventricles: No ventriculomegaly. Bones/joints: Unremarkable. No acute fracture. Paranasal sinuses: Visualized sinuses are unremarkable. No fluid levels. Mastoid air cells: Visualized mastoid air cells are well aerated. Soft tissues: Unremarkable. IMPRESSION: No acute intracranial process. Thank you for allowing us to participate in the care of your patient. Dictated and Authenticated by: Anibal Kennedy MD 02/17/2020 4:15 PM Central Time ([place] & [place]) [place]
--- NOTE | 2020-02-17 16:31 | CR ---
PROCEDURE INFORMATION: Exam: XR Chest, 1 View Exam date and time: 01/18/2020 7:24 PM Age: 54 years old Clinical indication: Shortness of breath TECHNIQUE: Imaging protocol: XR of the chest Views: 1 view. COMPARISON: CR Chest 1V Frontal 11/21/2019 9:38 AM FINDINGS: Lungs: There is small linear right basilar opacity. No focal consolidation. Pleural space: Unremarkable. No pleural effusion. No pneumothorax. Heart/Mediastinum: Unremarkable. No cardiomegaly. Bones/joints: Unremarkable. IMPRESSION: Right lower lung scarring versus subsegmental atelectasis. Thank you for allowing us to participate in the care of your patient. Dictated and Authenticated by: Anibal Kennedy MD 02/17/2020 4:16 PM Central Time ([place] & [place]) [facility]
== END 2020-01-18 21:55 | disposition home or self-care (01) ==
LOC: JD.ED 17:39
DX: S30.0XXA Contusion of lower back and pelvis, initial encounter (principal); S80.02XA Contusion of left knee, initial encounter; S80.01XA Contusion of right knee, initial encounter; R55 Syncope and collapse; R53.1 Weakness; R63.0 Anorexia; R74.02 Elevation of levels of lactic acid dehydrogenase [LDH]; R79.82 Elevated C-reactive protein (CRP); K21.9 Gastro-esophageal reflux disease without esophagitis; I10 Essential (primary) hypertension; E11.40 Type 2 diabetes mellitus with diabetic neuropathy, unspecified; E66.9 Obesity, unspecified; F41.9 Anxiety disorder, unspecified; F32.9 Major depressive disorder, single episode, unspecified; Z68.30 Body mass index [BMI] 30.0-30.9, adult; Z88.1 Allergy status to other antibiotic agents; Z88.5 Allergy status to narcotic agent; Z11.59 Encounter for screening for other viral diseases; Z79.899 Other long term (current) drug therapy; Z90.710 Acquired absence of both cervix and uterus; W17.89XA Other fall from one level to another, initial encounter
CPT/HCPCS: 36415; 70450; 71045; 72128; 72131; 80053; 82728; 83615; 83735; 83880; 84484; 85025; 86140; 87635; 90471; 90686; 93005; 96361; 96374; 96375; 96376; 99284; A9270; J1170; J2765; J7030; 93010; G0008; U0002

== ENCOUNTER 2020-01-25 15:48 | Emergency (ER) | payer MEDICAID ==
[2020-01-25 16:04] VITALS: BP 159/94; PULSE 112
--- NOTE | 2020-01-25 16:59 | EDM.PDOC ---
ED HPI GENERAL MEDICAL PROBLEM - General Chief Complaint: Chest Pain Stated Complaint: SHORT OF BREATH & CHEST PAIN Time Seen by Provider: 01/25/20 16:32 Source of Information: Reports: Patient, Old Records (ED 01/18/2020) History Limitations: Reports: No Limitations - History of Present Illness INITIAL COMMENTS - FREE TEXT/NARRATIVE: Ms. Alejandre is a 54-year-old woman who, medical records indicate, was seen in this ED 1 week ago today, on 01/18/2020, for a complaint at that time of 3 days of syncope, generalized weakness, decreased appetite, chills, and occasional nausea. No cough. Work-up included a CBC, CMP, magnesium level, ferritin level, LDH, troponin, CRP, BNP, a swab for the SARS-CoV-2 virus, a chest x-ray, CT scans of the head, T-spine, and L-spine without contrast, and an ECG. Her alkaline phosphatase was mildly elevated at 160, ferritin elevated at 365, her LDH is elevated at 318, and her CRP elevated at 3.9, with the remainder of her work-up being entirely unremarkable. The swab for the SARS-CoV-2 virus returned negative. The patient states that she followed up with her PCP this past , 01/22/2020, and subsequently underwent a bone scan on 01/23/2020. The results of the bone scan have not yet resulted. The patient now returns to the ED stating that she has had 7 days of fever, cough, dyspnea, chest pain abdominal pain, and generalized body aches. She states that she developed nausea and vomiting today. Prior to the patient's arrival to the ED, we received a phone call from a man that identified himself as a friend of the patient from [employer], informing us that the patient has a history of heroin abuse, and that she always comes here for a shot of Dilaudid. He was concerned that the patient has become addicted to Dilaudid, and requested that we flag her chart so that we stop giving it to her. Here in the ED, the patient's initial BP is found to be modestly elevated at 159/94, with a HR of 112 bpm, a RR of 24 rpm, afebrile, saturating 94% on room air. Prior to 1 week ago, the patient denies having a recent fever, chills, sore throat, ear pain, nasal or sinus congestion, cough, dyspnea, chest pain, pa lpitations, nausea, vomiting, constipation, diarrhea, abdominal pain, urinary symptoms, recent weight gain or weight loss, recent bloody bowel movements or black bowel movements, recent joint aches, headaches, or rashes. The patient's PCP is Louisa Mohamud NP. Her Neurosurgeon is Dr. Aldair Mondragon. Her pain neurology manager is Dr. Clemente Sales. Her Audiology Assistant is Dr. Angus Cheney. Generalized Pain Score (Numeric/FACES): 10 - Related Data Allergies Allergy/AdvReac Type Severity Reaction Status Date / Time clindamycin Allergy Severe Hives Verified 01/25/20 16:03 morphine Allergy Severe Hives Uncoded 01/25/20 16:03 Home Meds: Home Meds Pantoprazole [ProTONIX] 40 mg PO DAILY 10/02/17 [History] traMADol [Ultram] 100 mg PO TID 10/02/17 [History] ALPRAZolam [Xanax] 1 mg PO Q8H PRN 06/14/18 [History] amLODIPine Besylate [Norvasc] 10 mg PO DAILY 06/03/19 [History] FLUoxetine [PROzac] 80 mg PO DAILY 10/14/19 [History] Naproxen [Naprosyn] 500 mg PO Q12HR 5 Days #10 tab 10/14/19 [Rx] Hydrocodone/Acetaminophen [[place] 10-325 Tablet] 10 - 325 mg PO TID PRN 01/10/20 [History] Past Medical History HEENT History: Reports: Allergic Rhinitis Cardiovascular History: Reports: High Cholesterol, Hypertension Respiratory History: Reports: Sleep Apnea (nightly CPAP 6) Gastrointestinal History: Reports: [employer] History: Reports: Ectopic Musculoskeletal History: Reports: Fracture (left ankle), Osteoarthritis (L- spine) Neurological History: Reports: Neuropathy, Diabetic Psychiatric History: Reports: Anxiety, Depression Endocrine/Metabolic History: Reports: Diabetes, Type II, Obesity/BMI 30+ - Infectious Disease History Infectious Disease History: Reports: Chicken Pox, Influenza, Measles, Mumps, Shingles - Past Surgical History GI Surgical History: Reports: Colonoscopy (x 1) Female Surgical History: Reports: D&C (x 1), Hysterectomy (partial) Dermatological Surgical History: Reports: Other (See Below) (Lipoma excised off back) Social & Family History - Family History Family Medical History: Noncontributory - Tobacco Use Smoking Status *Q: Current Every Day Smoker Years of Tobacco use: 32 Packs/Tins Daily: 0.2 - Caffeine Use Caffeine Use: Reports: Soda - Alcohol Use Alcohol Use History: No - Recreational Drug Use Recreational Drug Use: Yes Drug Use in Last 12 Months: Yes Recreational Drug Type: Reports: Cocaine (last snorted 2007), Heroin, Marijuana/Hashish (last smoked ), Methamphetamine (last smoked 2007) - Living Situation & Occupation Living situation: Reports: , with Family (Son) Occupation: Unemployed ED ROS GENERAL - Review of Systems Review Of Systems: Comprehensive ROS is negative, except as noted in HPI. ED EXAM, GENERAL - Physical Exam Exam: See Below Exam Limited By: No Limitations General Appearance: Alert, WD/WN, No Apparent Distress, Anxious Eye Exam: Bilateral Eye: EOMI, Normal Inspection Ears: Normal External Exam, Hearing Grossly Normal Nose: Normal Inspection Throat/Mouth: Normal Inspection, Normal Lips, Normal Voice, No Airway Compromise Head: Atraumatic, Normocephalic Neck: Normal Inspection, Full Range of Motion Respiratory/Chest: No Respiratory Distress, Lungs Clear, Normal Breath Sounds, No Accessory Muscle Use Cardiovascular: Normal Peripheral Pulses, No Edema, No Gallop, No JVD, No Murmur, No Rub, Tachycardia (regular) Peripheral Pulses: 3+: Radial (L), Radial (R) GI/Abdominal: Normal Bowel Sounds, Soft, Non-Tender, No Organomegaly, No Distention, No Abnormal Bruit, No Mass Back Exam: Normal Inspection, Full Range of Motion, NT Extremities: Normal Inspection, Normal Range of Motion, No Pedal Edema, Normal Capillary Refill Neurological: Alert, Oriented, Normal Cognition, No Motor/Sensory Deficits Psychiatric: Anxious Skin Exam: Warm, Dry, Intact, Normal Color, No Rash EKG INTERPRETATION EKG Date: 01/25/20 Time: 16:27 Rhythm: Other (Sinus tachycardia) Rate (Beats/Min): 101 [place]: Normal P-Wave: Present QRS: Normal ST-T: Normal QT: Prolonged (QTc 564 ms) Comparison: Change From Previous EKG (QTc prolongation new since 01/18/2020) Course - Vital Signs Last Recorded V/S: Last Vital Signs Temp 37.2 C 01/25/20 16:00 Pulse 112 H 01/25/20 16:00 Resp 24 H 01/25/20 16:00 BP 159/94 H 01/25/20 16:00 Pulse Ox 94 L 01/25/20 16:00 - Orders/Labs/Meds Orders: Active Orders 24 hr Category Date Time Status Chest 2V [CR] Stat Exams 01/25/20 17:03 Taken CORONAVIRUS COVID-19 PCR PHL Stat Lab 01/25/20 17:35 Received Labs: Laboratory Tests 01/25/20 01/25/20 Range/Units 18:00 18:00 Urine Color Yellow (Yellow) Urine Appearance Clear (Clear) Urine pH 7.0 (5.0-8.0) Ur Specific [place] 1.015 (1.005-1.030) Urine Protein 1+ H (Negative) Urine Glucose (UA) Negative (Negative) Urine Ketones Negative (Negative) Urine Occult Blood Trace-intact H (Negative) Urine Nitrite Negative (Negative) Urine Bilirubin Negative (Negative) Urine Urobilinogen 1.0 (0.2-1.0) Ur Leukocyte Esterase Negative (Negative) Urine RBC 5-10 H (0-5) /hpf Urine WBC 0-5 (0-5) /hpf Ur Squamous Epith Cells 0-5 (0-5) /hpf Urine Bacteria Few (FEW) /hpf Urine Mucus Few (FEW) /hpf Urine Opiates Screen Presumptive positive H (XASNSJ=397) Ur Buprenorphine Scrn Negative (CUTOFF=10) Ur Oxycodone Screen Negative (AFI5SL=052) Urine Methadone Screen Negative (NZYLCF=349) Ur Propoxyphene Screen Negative (HOYVTK=318) Ur Barbiturates Screen Negative (ORZSFP=153) Ur Tricyclics Screen Negative (CSIHRR=333) Ur Phencyclidine Scrn Negative (CUTOFF=25) Ur Amphetamine Screen Negative (FYFANF=012) U Methamphetamines Scrn Negative (RLIHNU=336) U Benzodiazepines Scrn Presumptive positive H (SNCTEL=038) U Cocaine Metab Screen Negative (VBYTIW=507) U Marijuana (THC) Screen Negative (CUTOFF=50) Meds: Medications Discontinued Medications Generic Name Dose Route Start Last Admin Trade Name Freq PRN Reason Stop Dose Admin Sodium Chloride 1,000 mls @ 999 mls/hr 01/25/20 17:17 01/25/20 17:53 Normal Saline IV 01/25/20 18:17 999 mls/hr ONETIME ONE Administration Ketorolac Tromethamine 30 mg 01/25/20 17:17 01/25/20 17:55 Toradol IVPUSH 01/25/20 17:18 30 mg ONETIME STA Administration Ondansetron HCl 4 mg 01/25/20 17:04 01/25/20 17:53 Zofran Odt PO 01/25/20 17:05 Not Given ONETIME ONE Ondansetron HCl 4 mg 01/25/20 17:24 01/25/20 17:55 Zofran IVPUSH 01/25/20 17:25 4 mg ONETIME ONE Administration - Re-Assessments/Exams Free Text/Narrative Re-Assessment/Exam: 01/25/20 17:17 As above, the patient presents with 7 days of chest pain, dyspnea, generalized body aches, fever, cough, and abdominal pain, with nausea and vomiting that developed today. She presented with similar symptoms week ago, on 01/25/2020, and a work-up at that time included a CBC, CMP, magnesium level, ferritin level, LDH, troponin, CRP, BNP, and a swab for the SARS-CoV-2 virus, a chest x-ray, CT scans of the head, thoracic spine, and lumbar spine, and an ECG. Her ferritin, LDH, and CRP were modestly elevated, although her swab for the SARS-CoV-2 virus was negative. She then followed up with her PCP on , 01/22/2020, and underwent a bone scan on 01/23/2020, that has not yet been interpreted. An ECG obtained at triage finds new QT prolongation, but no other concerning findings. The constellation of the patient's symptoms and her elevated ferritin, LDH, and CRP from last week are highly concerning for COVID-19, despite her negative swab. I have ordered a work-up for today that includes a urinalysis, a urine drug screen, a chest x-ray, and a send-out swab for the SARS-CoV-2 virus. Because the patient's oxygen saturation is 94% on room air, she is not a candidate for treatment for COVID-19, even if positive, therefore I cannot order a stat test. The patient asked for an opioid to treat her generalized pain. She has a history of chronic pain, previously under treatment by a pain neurology manager, currently under treatment by her PCP, who she just saw 3 days ago. She stated that the opioids provided by her PCP are not strong enough, and that she needs something stronger. I explained that opioids from the ED are intended to treat acute, demonstrable injuries, not chronic pain or pain from COVID-19. I do not see an indication for treatment with an opioid. The patient attempted to argue the point with me, unsuccessfully. I did not share the information given to us from her friend from [facility]. The patient will be given 1 L of IV fluid, per her request, along with IV Zofran and IV Toradol. 01/25/20 18:07 Notified by Harley TRIPP that the patient's friend from [facility] called again to let us know that the patient called him all upset that she was not given Dilaudid and telling him that she intended to go to [place] to get some Dilaudid. He was wondering if we could call [place] to warn them of the patient. I don't believe that is permissible. 01/25/20 18:10 2-view chest x-ray is read by Marycarmen as: 1. No pneumonia. 2. No significant interval change when compared to the CR Chest 1 V Frontal 01/18/2020 7:24 PM. The patient has not yet provided a urine sample. 01/25/20 19:46 The patient's urinalysis is remarkable for trace occult blood with 5-10 RBCs, leukocyte esterase negative with 0-5 WBCs, nitrate negative with few bacteria, and 0-5 squamous epithelial cells. Her urine drug screen is positive for both opiates and benzodiazepines. 01/25/20 19:54 Test results discussed with the patient, with Tiffany TRIPP present. As above, today's work-up is unremarkable. I explained to the patient that it is possible that she has COVID-19, and that she will get the test results in the next few days. If she test positive, she will need to quarantine until she tests negative, which typically takes 10 days, but can take longer. If she test negative but her symptoms persist, she can follow-up with her PCP as an outpatient. Departure - Departure Time of Disposition: 19:55 Disposition: Home, Self-Care 01 Condition: Good Clinical Impression: Generalized body aches, Cough - Discharge Information *PRESCRIPTION DRUG MONITORING PROGRAM REVIEWED*: Not Applicable *COPY OF PRESCRIPTION DRUG MONITORING REPORT IN PATIENT MEAGAN: Not Applicable Instructions: Cough, Adult, [id number] Referrals: Louisa Mohamud NP [Primary Care Provider] - Aldair Mondragon MD [Consulting Physician] - Clemente Sales MD [Ordering Only Provider] - Angus Cheney MD [Physician] - Forms: ED Department Discharge Additional Instructions: You were seen in the emergency room for 7 days of fever, cough, shortness of breath, chest pain, abdominal pain, generalized body aches, with nausea and vomiting today. Work-up in the ER included urine studies, a chest x-ray, an ECG, and a swab for the SARS-CoV-2 virus. Your work-up was unremarkable. You do not have a urinary tract infection, and you do not have pneumonia. You will be notified of the results of your swab for the SARS-CoV-2 virus within the next few days. If your swab for the SARS-CoV-2 virus returns positive, you must quarantine until you tested negative. On average, this takes 10 days, but it can take longer. If your swab for the SARS-CoV-2 virus returns negative, but you still have symptoms, please follow-up with your PCP, Louisa Mohamud NP. If any other problems, please do not hesitate to return to the ER. Sepsis Event Note (ED) - Evaluation Sepsis Screening Result: Possible Sepsis Risk - Focused Exam Vital Signs: Vital Signs Temp Pulse Resp BP Pulse Ox 01/25/20 16:00 37.2 C 112 H 24 H 159/94 H 94 L - My Orders Last 24 Hours: My Active Orders 01/25/20 17:03 Chest 2V [CR] Stat 01/25/20 17:35 CORONAVIRUS COVID-19 PCR PHL Stat - Assessment/Plan Last 24 Hours: My Active Orders 01/25/20 17:03 Chest 2V [CR] Stat 01/25/20 17:35 CORONAVIRUS COVID-19 PCR PHL Stat
[2020-01-25] MEDS ORDERED: Ondansetron 4 MG Tab.DIS PO ONE (17:04)
[2020-01-25] MEDS ORDERED: Sodium Chloride 0.9% 1,000 ML IV ONE (17:17)
[2020-01-25] MEDS ORDERED: Ketorolac 30 MG/ML SDV IVPUSH STA (17:17)
[2020-01-25] MEDS ORDERED: Ondansetron 4 MG/2 ML SDV IVPUSH ONE (17:24)
== END 2020-01-25 20:10 | disposition home or self-care (01) ==
LOC: JD.ED 15:48
DX: R05 Cough (principal); R55 Syncope and collapse; R06.00 Dyspnea, unspecified; R50.9 Fever, unspecified; R10.9 Unspecified abdominal pain; R11.2 Nausea with vomiting, unspecified; R53.1 Weakness; I10 Essential (primary) hypertension; K21.9 Gastro-esophageal reflux disease without esophagitis; E11.40 Type 2 diabetes mellitus with diabetic neuropathy, unspecified; F41.9 Anxiety disorder, unspecified; F32.9 Major depressive disorder, single episode, unspecified; E66.9 Obesity, unspecified; F17.210 Nicotine dependence, cigarettes, uncomplicated; Z90.710 Acquired absence of both cervix and uterus; Z88.1 Allergy status to other antibiotic agents; Z88.5 Allergy status to narcotic agent; Z79.899 Other long term (current) drug therapy; Z20.828 Contact with and (suspected) exposure to other viral communicable diseases
CPT/HCPCS: 71046; 80306; 81001; 87635; 93005; 96374; 96375; 99284; J1885; J2405; J7030; 93010; 99283; U0002

== ENCOUNTER 2020-01-28 12:58 | Emergency (ER) | payer MEDICAID ==
[2020-01-28 13:18] VITALS: BP 151/62; PULSE 106
[2020-01-28] MEDS ORDERED: Sodium Chloride 0.9% 10 ML Syringe FLUSH PRN (13:27)
[2020-01-28] MEDS ORDERED: Albuterol 6.7 GM Inhaler INH ONE ×2 (13:46→13:51)
[2020-01-28] MEDS ORDERED: Dexamethasone 10 MG/ML SDV IVPUSH ONE (13:46)
--- NOTE | 2020-01-28 14:20 | EDM.PDOC ---
ED HPI GENERAL MEDICAL PROBLEM - General Chief Complaint: Respiratory Problem Stated Complaint: [facility] Time Seen by Provider: 01/28/20 13:25 Source of Information: Reports: Patient, EMS, RN Notes Reviewed - History of Present Illness INITIAL COMMENTS - FREE TEXT/NARRATIVE: 54 yr old female has been brought in by ambulance for cough, severe dyspnea, hypoxia. She states she has been ill for about 10 days with cough, fever, chills and now worsening dyspnea over the last few days. She was evaluated in this ED 3 days ago. O2 sats 94 % room air at that time but noted to be tachypnic. CXR r eported as normal. Covid screen done, sent to [facility], results pending. No known hx of chronic lung problems. Headache Pain Score (Numeric/FACES): 10 Back Pain Score (Numeric/FACES): 10 - Related Data Allergies Allergy/AdvReac Type Severity Reaction Status Date / Time clindamycin Allergy Severe Hives Verified 01/28/20 13:09 morphine Allergy Severe Hives Uncoded 01/25/20 16:03 Home Meds: Home Meds Pantoprazole [ProTONIX] 40 mg PO DAILY 10/02/17 [History] ALPRAZolam [Xanax] 1 mg PO Q8H PRN 06/14/18 [History] amLODIPine Besylate [Norvasc] 10 mg PO DAILY 06/03/19 [History] FLUoxetine [PROzac] 80 mg PO DAILY 10/14/19 [History] Hydrocodone/Acetaminophen [[place] 10-325 Tablet] 10 - 325 mg PO TID PRN 01/10/20 [History] Past Medical History HEENT History: Reports: Allergic Rhinitis Cardiovascular History: Reports: High Cholesterol, Hypertension Respiratory History: Reports: Sleep Apnea Gastrointestinal History: Reports: GERD Genitourinary History: Reports: UTI, Recurrent, Other (See Below) Other Genitourinary History: gential warts EDUCATIONAL THERAPIST History: Reports: Ectopic Other EDUCATIONAL THERAPIST History: thickened endometrium, post menopausal bleeding, endometrial hyperplasia, condyloma acuminatum, Right breast cyst drainage, , laparotomy Musculoskeletal History: Reports: Fracture, Osteoarthritis Other Musculoskeletal History: right index finger mallet deformity, plantar fasciitis Neurological History: Reports: Neuropathy, Diabetic Other Neuro History: cerviclagia Psychiatric History: Reports: Anxiety, Depression Endocrine/Metabolic History: Reports: Diabetes, Type II, Obesity/BMI 30+ Hematologic History: Reports: None Immunologic History: Reports: None Oncologic (Cancer) History: Reports: Uterine Dermatologic History: Reports: Other (See Below) Other Dermatologic History: lipoma excision, contusion to face, linear morphea, lipoma excison - Infectious Disease History Infectious Disease History: Reports: Chicken Pox, Influenza, Measles, Mumps, Shingles - Past Surgical History Head Surgeries/Procedures: Reports: None GI Surgical History: Reports: Colonoscopy Female Surgical History: Reports: D&C, Hysterectomy Dermatological Surgical History: Reports: Other (See Below) Social & Family History - Family History Family Medical History: Noncontributory - Tobacco Use Tobacco Use Status *Q: Never Tobacco User Second Hand Smoke Exposure: No - Caffeine Use Caffeine Use: Reports: Coffee - Recreational Drug Use Recreational Drug Use: No - Living Situation & Occupation Living situation: Reports: , with Family (Son) Occupation: Unemployed ED ROS GENERAL - Review of Systems Review Of Systems: See Below Constitutional: Reports: Fever, Chills HEENT: Denies: Throat Pain Respiratory: Reports: Shortness of Breath, Cough Cardiovascular: Denies: Chest Pain GI/Abdominal: Denies: Abdominal Pain, Vomiting Musculoskeletal: Reports: Other (generalized myalgias) Skin: Denies: Rash Neurological: Reports: Dizziness, Weakness ED EXAM, GENERAL - Physical Exam Exam: See Below General Appearance: Alert, Moderate Distress Head: Atraumatic Neck: Supple Respiratory/Chest: Respiratory Distress (moderate tachypnea) Cardiovascular: Tachycardia Neurological: Alert, Oriented, No Motor/Sensory Deficits Skin Exam: Warm, Dry, Normal Color #1 Interpretation EKG Date: 01/28/20 Rhythm: Other (sinus tach) Rate (Beats/Min): 109 [place]: Normal P-Wave: Present QRS: Normal ST-T: Normal Course - Vital Signs Last Recorded V/S: Last Vital Signs Temp 99.9 F 01/28/20 13:09 Pulse 106 H 01/28/20 13:09 Resp 31 H 01/28/20 13:09 BP 151/62 H 01/28/20 13:09 Pulse Ox 90 L 01/28/20 14:14 - Orders/Labs/Meds Orders: Active Orders 24 hr Category Date Time Status EKG 12 Lead [EKG Documentation Completion] [RC] STAT Care 01/28/20 13:43 Active Oxygen Therapy [RC] ASDIRECTED Care 01/28/20 14:04 Active Peripheral IV Care [RC] . DIRECTED Care 01/28/20 13:28 Active RT Post Treatment Assessment [RC] Click to Edit Care 01/28/20 13:46 Active RT Post Treatment Assessment [RC] Click to Edit Care 01/28/20 13:47 Active RT Pre-Treatment Assessment [RC] Click to Edit Care 01/28/20 13:46 Active RT Pre-Treatment Assessment [RC] Click to Edit Care 01/28/20 13:47 Active Chest 1V Frontal [CR] Stat Exams 01/28/20 13:25 Taken CULTURE BLOOD [BC] Stat Lab 01/28/20 13:26 Ordered CULTURE BLOOD [BC] Stat Lab 01/28/20 13:30 Ordered Sodium Chloride 0.9% [Normal Saline] 1,000 ml Med 01/28/20 15:45 Active IV ONETIME Sodium Chloride 0.9% [Saline Flush] Med 01/28/20 13:27 Active 10 ml FLUSH ASDIRECTED PRN cefTRIAXone [Rocephin] 2 gm Med 01/28/20 15:45 Active Sodium Chloride 0.9% [Normal Saline] 100 ml IV Q24H Peripheral IV Insertion Adult [OM.PC] Stat Oth 01/28/20 13:28 Ordered Medication Orders Sodium Chloride (Normal Saline) 1,000 mls @ 999 mls/hr IV ONETIME AP Last Admin: 01/28/20 15:51 Dose: 999 mls/hr Documented by: SIMÓN Ceftriaxone Sodium 2 gm/ (Sodium Chloride) 100 mls @ 200 mls/hr IV Q24H AP Last Admin: 01/28/20 15:51 Dose: 200 mls/hr Documented by: SIMÓN Sodium Chloride (Saline Flush) 10 ml FLUSH ASDIRECTED PRN PRN Reason: Keep Vein Open Last Admin: 01/28/20 13:40 Dose: 10 ml Documented by: MICHELET Labs: Laboratory Tests 01/28/20 01/28/20 01/28/20 Range/Units 13:40 13:40 13:40 WBC 20.90 H (3.98-10.04) K/mm3 RBC 4.19 (3.98-5.22) M/mm3 Hgb 12.3 D (11.2-15.7) gm/dl Hct 36.8 (34.1-44.9) % MCV 87.8 (79.4-94.8) fl MCH 29.4 (25.6-32.2) pg MCHC 33.4 (32.2-35.5) g/dl RDW Std Deviation 45.5 (36.4-46.3) fL Plt Count 190 D (182-369) K/mm3 MPV 9.8 (9.4-12.3) fl Neut % (Auto) 40.6 (34.0-71.1) % Lymph % (Auto) 44.6 (19.3-51.7) % Wood % (Auto) 11.1 (4.7-12.5) % Eos % (Auto) 0.3 L (0.7-5.8) Baso % (Auto) 2.8 H (0.1-1.2) % Neut # (Auto) 8.49 H (1.56-6.13) K/mm3 Lymph # (Auto) 9.32 H (1.18-3.74) K/mm3 Wood # (Auto) 2.31 H (0.24-0.36) K/mm3 Eos # (Auto) 0.06 (0.04-0.36) K/mm3 Baso # (Auto) 0.59 H (0.01-0.08) K/mm3 Manual Slide Review Abnormal smear D-Dimer, Quantitative (0.19-0.50) mg/L Puncture Site ABG pH (7.35-7.45) ABG pCO2 (35.0-45.0) mmHg ABG pO2 (80.0-100.0) mmHg ABG HCO3 (22.0-26.0) meq/L ABG O2 Saturation (96.0-97.0) % ABG Base Excess (-2-2.0) Popeye Test A-a Gradient mmHg O2 Delivery Device Oxygen Flow Rate FiO2 (21.00-100.00) % Sodium 137 (136-145) mEq/L Potassium 2.8 L (3.5-5.1) mEq/L Chloride 100 (98-107) mEq/L Carbon Dioxide 25 (21-32) mEq/L Anion Gap 14.8 (5-15) BUN 11 (7-18) mg/dL Creatinine 0.8 (0.55-1.02) mg/dL Est Cr Clr Drug Dosing 70.23 mL/min Estimated GFR (MDRD) > 60 (>60) mL/min BUN/Creatinine Ratio 13.8 L (14-18) Glucose 131 H (74-106) mg/dL Lactic Acid (0.4-2.0) mmol/L Calcium 7.7 L (8.5-10.1) mg/dL Total Bilirubin 0.6 (0.2-1.0) mg/dL AST 108 H (15-37) U/L ALT 41 (14-59) U/L Alkaline Phosphatase 222 H (46-116) U/L Lactate Dehydrogenase 1165 H (81-234) U/L Troponin I < 0.017 (0.00-0.056) ng/mL C-Reactive Protein 18.2 H* (<1.0) mg/dL Total Protein 6.6 (6.4-8.2) g/dl Albumin 2.1 L (3.4-5.0) g/dl Globulin 4.5 gm/dL Albumin/Globulin Ratio 0.5 L (1-2) Urine Color (Yellow) Urine Appearance (Clear) Urine pH (5.0-8.0) Ur Specific [place] (1.005-1.030) Urine Protein (Negative) Urine Glucose (UA) (Negative) Urine Ketones (Negative) Urine Occult Blood (Negative) Urine Nitrite (Negative) Urine Bilirubin (Negative) Urine Urobilinogen (0.2-1.0) Ur Leukocyte Esterase (Negative) Urine RBC (0-5) /hpf Urine WBC (0-5) /hpf Ur Squamous Epith Cells (0-5) /hpf Urine Bacteria (FEW) /hpf Urine Mucus (FEW) /hpf Urine Opiates Screen (NPUDGD=248) Ur Buprenorphine Scrn (CUTOFF=10) Ur Oxycodone Screen (TPU3UL=118) Urine Methadone Screen (RNOMYM=543) Ur Propoxyphene Screen (SEPMYE=065) Ur Barbiturates Screen (GCGOTX=207) Ur Tricyclics Screen (FZISMN=140) Ur Phencyclidine Scrn (CUTOFF=25) Ur Amphetamine Screen (KVURVP=487) U Methamphetamines Scrn (WTZYPR=218) U Benzodiazepines Scrn (TOJYBL=413) U Cocaine Metab Screen (QEILYK=110) U Marijuana (THC) Screen (CUTOFF=50) SARS-CoV-2 RNA (RADHA) (NEGATIVE) 01/28/20 01/28/20 01/28/20 Range/Units 13:40 13:40 14:05 WBC (3.98-10.04) K/mm3 RBC (3.98-5.22) M/mm3 Hgb (11.2-15.7) gm/dl Hct (34.1-44.9) % MCV (79.4-94.8) fl MCH (25.6-32.2) pg MCHC (32.2-35.5) g/dl RDW Std Deviation (36.4-46.3) fL Plt Count (182-369) K/mm3 MPV (9.4-12.3) fl Neut % (Auto) (34.0-71.1) % Lymph % (Auto) (19.3-51.7) % Wood % (Auto) (4.7-12.5) % Eos % (Auto) (0.7-5.8) Baso % (Auto) (0.1-1.2) % Neut # (Auto) (1.56-6.13) K/mm3 Lymph # (Auto) (1.18-3.74) K/mm3 Wood # (Auto) (0.24-0.36) K/mm3 Eos # (Auto) (0.04-0.36) K/mm3 Baso # (Auto) (0.01-0.08) K/mm3 Manual Slide Review D-Dimer, Quantitative 8.71 H (0.19-0.50) mg/L Puncture Site ABG pH (7.35-7.45) ABG pCO2 (35.0-45.0) mmHg ABG pO2 (80.0-100.0) mmHg ABG HCO3 (22.0-26.0) meq/L ABG O2 Saturation (96.0-97.0) % ABG Base Excess (-2-2.0) Popeye Test A-a Gradient mmHg O2 Delivery Device Oxygen Flow Rate FiO2 (21.00-100.00) % Sodium (136-145) mEq/L Potassium (3.5-5.1) mEq/L Chloride (98-107) mEq/L Carbon Dioxide (21-32) mEq/L Anion Gap (5-15) BUN (7-18) mg/dL Creatinine (0.55-1.02) mg/dL Est Cr Clr Drug Dosing mL/min Estimated GFR (MDRD) (>60) mL/min BUN/Creatinine Ratio (14-18) Glucose (74-106) mg/dL Lactic Acid 3.5 H* (0.4-2.0) mmol/L Calcium (8.5-10.1) mg/dL Total Bilirubin (0.2-1.0) mg/dL AST (15-37) U/L ALT (14-59) U/L Alkaline Phosphatase (46-116) U/L Lactate Dehydrogenase (81-234) U/L Troponin I (0.00-0.056) ng/mL C-Reactive Protein (<1.0) mg/dL Total Protein (6.4-8.2) g/dl Albumin (3.4-5.0) g/dl Globulin gm/dL Albumin/Globulin Ratio (1-2) Urine Color (Yellow) Urine Appearance (Clear) Urine pH (5.0-8.0) Ur Specific [place] (1.005-1.030) Urine Protein (Negative) Urine Glucose (UA) (Negative) Urine Ketones (Negative) Urine Occult Blood (Negative) Urine Nitrite (Negative) Urine Bilirubin (Negative) Urine Urobilinogen (0.2-1.0) Ur Leukocyte Esterase (Negative) Urine RBC (0-5) /hpf Urine WBC (0-5) /hpf Ur Squamous Epith Cells (0-5) /hpf Urine Bacteria (FEW) /hpf Urine Mucus (FEW) /hpf Urine Opiates Screen (UBCYSV=156) Ur Buprenorphine Scrn (CUTOFF=10) Ur Oxycodone Screen (UFB0EE=751) Urine Methadone Screen (XVXXCX=714) Ur Propoxyphene Screen (TEROBN=485) Ur Barbiturates Screen (HLNKYB=197) Ur Tricyclics Screen (JMXOXS=444) Ur Phencyclidine Scrn (CUTOFF=25) Ur Amphetamine Screen (JFWOFI=588) U Methamphetamines Scrn (GFQHFR=142) U Benzodiazepines Scrn (DVASCG=233) U Cocaine Metab Screen (WSXPHU=543) U Marijuana (THC) Screen (CUTOFF=50) SARS-CoV-2 RNA (RADHA) Negative (NEGATIVE) 01/28/20 01/28/20 01/28/20 Range/Units 14:09 15:20 15:30 WBC (3.98-10.04) K/mm3 RBC (3.98-5.22) M/mm3 Hgb (11.2-15.7) gm/dl Hct (34.1-44.9) % MCV (79.4-94.8) fl MCH (25.6-32.2) pg MCHC (32.2-35.5) g/dl RDW Std Deviation (36.4-46.3) fL Plt Count (182-369) K/mm3 MPV (9.4-12.3) fl Neut % (Auto) (34.0-71.1) % Lymph % (Auto) (19.3-51.7) % Wood % (Auto) (4.7-12.5) % Eos % (Auto) (0.7-5.8) Baso % (Auto) (0.1-1.2) % Neut # (Auto) (1.56-6.13) K/mm3 Lymph # (Auto) (1.18-3.74) K/mm3 [place] # (Auto) (0.24-0.36) K/mm3 Eos # (Auto) (0.04-0.36) K/mm3 Baso # (Auto) (0.01-0.08) K/mm3 Manual Slide Review D-Dimer, Quantitative (0.19-0.50) mg/L Puncture Site Lt radial ABG pH 7.46 H (7.35-7.45) ABG pCO2 33.6 L (35.0-45.0) mmHg ABG pO2 57.0 L (80.0-100.0) mmHg ABG HCO3 23.5 (22.0-26.0) meq/L ABG O2 Saturation 87.5 L (96.0-97.0) % ABG Base Excess 0.6 (-2-2.0) Popeye Test Positive A-a Gradient 471 mmHg O2 Delivery Device Nonrebreather Oxygen Flow Rate 15.0 FiO2 80.00 (21.00-100.00) % Sodium (136-145) mEq/L Potassium (3.5-5.1) mEq/L Chloride (98-107) mEq/L Carbon Dioxide (21-32) mEq/L Anion Gap (5-15) BUN (7-18) mg/dL Creatinine (0.55-1.02) mg/dL Est Cr Clr Drug Dosing mL/min Estimated GFR (MDRD) (>60) mL/min BUN/Creatinine Ratio (14-18) Glucose (74-106) mg/dL Lactic Acid (0.4-2.0) mmol/L Calcium (8.5-10.1) mg/dL Total Bilirubin (0.2-1.0) mg/dL AST (15-37) U/L ALT (14-59) U/L Alkaline Phosphatase (46-116) U/L Lactate Dehydrogenase (81-234) U/L Troponin I (0.00-0.056) ng/mL C-Reactive Protein (<1.0) mg/dL Total Protein (6.4-8.2) g/dl Albumin (3.4-5.0) g/dl Globulin gm/dL Albumin/Globulin Ratio (1-2) Urine Color Yellow (Yellow) Urine Appearance Slt cloudy H (Clear) Urine pH 6.5 (5.0-8.0) Ur Specific [place] > or = 1.030 (1.005-1.030) Urine Protein 2+ H (Negative) Urine Glucose (UA) Negative (Negative) Urine Ketones Negative (Negative) Urine Occult Blood Negative (Negative) Urine Nitrite Negative (Negative) Urine Bilirubin 1+ H (Negative) Urine Urobilinogen 1.0 (0.2-1.0) Ur Leukocyte Esterase Negative (Negative) Urine RBC 0-5 (0-5) /hpf Urine WBC 5-10 H (0-5) /hpf Ur Squamous Epith Cells 5-10 H (0-5) /hpf Urine Bacteria Few (FEW) /hpf Urine Mucus Moderate H (FEW) /hpf Urine Opiates Screen Presumptive positive H (BJMCHG=671) Ur Buprenorphine Scrn Negative (CUTOFF=10) Ur Oxycodone Screen Negative (EUD5TS=242) Urine Methadone Screen Negative (LMCMFX=956) Ur Propoxyphene Screen Negative (WNJPLN=845) Ur Barbiturates Screen Negative (SHWKFE=752) Ur Tricyclics Screen Negative (CRKUWJ=469) Ur Phencyclidine Scrn Negative (CUTOFF=25) Ur Amphetamine Screen Negative (USCUNF=396) U Methamphetamines Scrn Presumptive positive H (RPTIIE=706) U Benzodiazepines Scrn Presumptive positive H (XMFRFY=928) U Cocaine Metab Screen Negative (EVPFND=498) U Marijuana (THC) Screen Negative (CUTOFF=50) SARS-CoV-2 RNA (RADHA) (NEGATIVE) Meds: Medications Generic Name Dose Route Start Last Admin Trade Name Freq PRN Reason Stop Dose Admin Sodium Chloride 1,000 mls @ 999 mls/hr 01/28/20 15:45 01/28/20 15:51 Normal Saline IV 999 mls/hr ONETIME AP Administration Ceftriaxone Sodium 2 gm/ 100 mls @ 200 mls/hr 01/28/20 15:45 01/28/20 15:51 Sodium Chloride IV 200 mls/hr Q24H AP Administration Sodium Chloride 10 ml 01/28/20 13:27 01/28/20 13:40 Saline Flush FLUSH 10 ml ASDIRECTED PRN Administration Keep Vein Open Discontinued Medications Generic Name Dose Route Start Last Admin Trade Name Freq PRN Reason Stop Dose Admin Acetaminophen 975 mg 01/28/20 15:16 01/28/20 15:25 Tylenol PO 01/28/20 15:17 975 mg NOW ONE Administration Albuterol 0 gm 01/28/20 13:46 01/28/20 13:53 Proventil Hfa INH 01/28/20 13:47 2 puff ONETIME ONE Administration Albuterol 0 gm 01/28/20 13:51 01/28/20 14:14 Proventil Hfa INH 01/28/20 13:52 2 puff ONETIME ONE Administration Dexamethasone 8 mg 01/28/20 13:46 01/28/20 14:03 Dexamethasone IVPUSH 01/28/20 13:47 8 mg ONETIME ONE Administration Hydromorphone HCl 0.25 mg 01/28/20 16:20 01/28/20 16:30 Dilaudid IVPUSH 01/28/20 16:21 0.25 mg ONETIME ONE Administration Ceftriaxone Sodium 2 gm/ 100 mls @ 200 mls/hr 01/28/20 15:30 01/28/20 15:52 Sodium Chloride IV 01/28/20 15:59 Not Given ONETIME ONE Azithromycin 500 mg/ Sodium 250 mls @ 250 mls/hr 01/28/20 15:37 01/28/20 16:28 Chloride IV 01/28/20 16:36 250 mls/hr ONETIME ONE Administration Potassium Chloride 10 meq/ 100 mls @ 100 mls/hr 01/28/20 16:15 01/28/20 17:18 Premix IV 01/28/20 18:14 100 mls/hr Q1H AP Administration Morphine Sulfate 2 mg 01/28/20 15:16 01/28/20 15:32 Morphine IVPUSH 01/28/20 15:17 Not Given ONETIME ONE - Re-Assessments/Exams Free Text/Narrative Re-Assessment/Exam: 01/28/20 15:05. CXR shows bilat ground glass infiltrates, see Radiologist report for details. 02 sats 72 % on arrival, at 3 L NC. sats improved to 85 to 87 % 15 L NRB. ABG's at 15 L NRB showed pO2 57, CO2 33.6, Ph 7.46. Went to high flow NC, O2 improved to 88 to 92 % at 60 L, 95 % Fio2. 15:10. We are on diversion. Both [facility] on diversion for Covid. Arrangements made for transfer to [facility], Dr Ray, Hospitalist accepting provider. We will send her fixed wing. [place] to make arrangements for that. 15:25 148/91. 20, 106. 95 to 96 %. 01/28/20 15:32. Covid screen has come back neg. However D dimer 8.71, LDH 11 65, CRP 18.2. WBC 20,000. Lactate 3.5. Rocephin 2 gram IV ordered. Zithromax 500 mg IV ordered. At this time I am not going to 30 mg/KG fluid bolus. I believe the sx, CXR findings, other lab findings more than the neg covid screen. Will give a 250 mg IV fluid bolus at this time. Departure - Departure Time of Disposition: 15:20 Disposition: DC/Tfer to Acute Hospital 02 Condition: Critical Clinical Impression: Pneumonia due to COVID-19 virus, Hypoxia - Discharge Information Referrals: PCP,None [Primary Care Provider] - Forms: ED Department Discharge Sepsis Event Note (ED) - Evaluation Sepsis Screening Result: Possible Sepsis Risk - Focused Exam Vital Signs: Vital Signs Temp Pulse Resp BP Pulse Ox Pulse Ox Pulse Ox 01/28/20 14:14 90 L 01/28/20 13:55 89 L 01/28/20 13:09 99.9 F 106 H 31 H 151/62 H 15 L - My Orders Last 24 Hours: My Active Orders 01/28/20 13:25 Chest 1V Frontal [CR] Stat 01/28/20 13:26 CULTURE BLOOD [BC] Stat 01/28/20 13:27 Sodium Chloride 0.9% [Saline Flush] 10 ml FLUSH ASDIRECTED PRN 01/28/20 13:28 Peripheral IV Care [RC] . DIRECTED Peripheral IV Insertion Adult [OM.PC] Stat 01/28/20 13:30 CULTURE BLOOD [BC] Stat 01/28/20 13:43 EKG 12 Lead [EKG Documentation Completion] [RC] STAT 01/28/20 13:46 RT Post Treatment Assessment [RC] Click to Edit RT Pre-Treatment Assessment [RC] Click to Edit 01/28/20 13:47 RT Post Treatment Assessment [RC] Click to Edit RT Pre-Treatment Assessment [RC] Click to Edit 01/28/20 14:04 Oxygen Therapy [RC] ASDIRECTED 01/28/20 15:45 Sodium Chloride 0.9% [Normal Saline] 1,000 ml IV ONETIME cefTRIAXone [Rocephin] 2 gm Sodium Chloride 0.9% [Normal Saline] 100 ml IV Q24H - Assessment/Plan Last 24 Hours: My Active Orders 01/28/20 13:25 Chest 1V Frontal [CR] Stat 01/28/20 13:26 CULTURE BLOOD [BC] Stat 01/28/20 13:27 Sodium Chloride 0.9% [Saline Flush] 10 ml FLUSH ASDIRECTED PRN 01/28/20 13:28 Peripheral IV Care [RC] . DIRECTED Peripheral IV Insertion Adult [OM.PC] Stat 01/28/20 13:30 CULTURE BLOOD [BC] Stat 01/28/20 13:43 EKG 12 Lead [EKG Documentation Completion] [RC] STAT 01/28/20 13:46 RT Post Treatment Assessment [RC] Click to Edit RT Pre-Treatment Assessment [RC] Click to Edit 01/28/20 13:47 RT Post Treatment Assessment [RC] Click to Edit RT Pre-Treatment Assessment [RC] Click to Edit 01/28/20 14:04 Oxygen Therapy [RC] ASDIRECTED 01/28/20 15:45 Sodium Chloride 0.9% [Normal Saline] 1,000 ml IV ONETIME cefTRIAXone [Rocephin] 2 gm Sodium Chloride 0.9% [Normal Saline] 100 ml IV Q24H
[2020-01-28] MEDS ORDERED: Acetaminophen 325 MG Tab PO ONE (15:16)
[2020-01-28] MEDS: Morphine 2 MG/ML SYRINGE IVPUSH ONE ×2 (15:25→15:32)
[2020-01-28] MEDS ORDERED: cefTRIAXone 2 GM in Sodium Chloride 0.9% 100 ML IV ONE (15:30)
[2020-01-28] MEDS ORDERED: Azithromycin 500 MG in Sodium Chloride 0.9% 250 ML IV ONE (15:37)
[2020-01-28] MEDS ORDERED: Sodium Chloride 0.9% 1,000 ML IV SCH (15:45)
[2020-01-28] MEDS ORDERED: cefTRIAXone 2 GM in Sodium Chloride 0.9% 100 ML IV SCH (15:45)
[2020-01-28] MEDS ORDERED: HYDROmorphone 0.5 MG/0.5 ML Syringe IVPUSH ONE (16:20)
[2020-01-28] MEDS: Potassium Chloride 10 MEQ in Premix Bag 1 BAG IV SCH ×2 (17:17→17:18)
== END 2020-01-28 17:45 ==
LOC: JD.ED 12:58
DX: U07.1 COVID-19 (principal); J12.89 Other viral pneumonia; R09.02 Hypoxemia; I10 Essential (primary) hypertension; K21.9 Gastro-esophageal reflux disease without esophagitis; E11.40 Type 2 diabetes mellitus with diabetic neuropathy, unspecified; F41.9 Anxiety disorder, unspecified; F32.9 Major depressive disorder, single episode, unspecified; E66.9 Obesity, unspecified; Z88.1 Allergy status to other antibiotic agents; Z88.5 Allergy status to narcotic agent; Z79.899 Other long term (current) drug therapy; Z68.31 Body mass index [BMI] 31.0-31.9, adult; Z20.828 Contact with and (suspected) exposure to other viral communicable diseases
CPT/HCPCS: 36415; 36600; 71045; 80053; 80306; 81001; 82803; 83605; 83615; 84484; 85025; 85379; 86140; 87040; 87635; 93005; 94640; 96365; 96367; 96375; 99285; A9270; J0456; J0696; J1100; J1170; J3480; J7030; J7050; 93010; 99284; J2270; U0002